=== PATIENT | male | born 1935 | race Caucasian/White ===

== ENCOUNTER 2020-02-07 02:15 | Inpatient (IN) | payer MEDICARE ==
[~2020-02-07] VITALS: Ht 182.8 cm; Wt 79.8 kg
[2020-02-07] VITALS (13 sets, daily range): BP systolic 120–163; BP diastolic 51–72
[2020-02-07] MEDS ORDERED: LIDOCAINE UROJET 2% GEL 10 ML PKG ONE (02:24)
--- NOTE | 2020-02-07 02:27 | ED Abdominal Pain ---
General Chief Complaint: General Problems/Pain Stated Complaint: KIDNEY PAIN Source of Information: Patient, EMS, Old Records Exam Limitations: No Limitations History of Present Illness Date Seen by Provider: Feb 07, 2020 Time Seen by Provider: 02:12 Initial Comments The patient presents to ER by EMS from [facility] with chief complaint that he is having severe pain in his bilateral flanks as well as his suprapubic region and has not been able to urinate for the past several hours. Passing large blood clots through his urine. Apparently he was admitted yesterday for urinary symptoms and is being seen by a urologist and had a scope done recently from [place], [place]. He went home AMA as he said he was in a lot of pain. Patient says he is having a lot of pain now rates it as severe and denies any nausea but has some mild shortness of breath. No chest pain area no history of asthma or COPD. He quit smoking over 50 years ago. He is not coughing anything up. No rash fevers or chills. Patient had a TURP but she made 3 months ago and presented yesterday for shortness of breath. He had a pleural effusion on the right side on his chest x- ray. He was given Lasix because his BNP was 3000 range. He was put on antibioti cs, Zosyn. He says when he was discharged home from [facility] to the residential he was put on oxygen. He was diagnosed with severe sepsis and had an elevated creatinine of 2.5 however we do not have a baseline for him. He did not have an elevated lactate or fever. Lasix was administered. Patient did not complete an echocardiogram. Troponins did not get trended because of the patient going AMA. Allergies and Home Medications Allergies Uncoded Allergies: pneumonia vaccine (Adverse Reaction, Unknown, 02/06/20) Patient Home Medication List Home Medication List Reviewed: Yes Review of Systems Review of Systems Constitutional: No chills, No diaphoresis EENTM: No Blurred Vision, No Double Vision Respiratory: Denies Cough, Denies Shortness of Air Cardiovascular: Denies Chest Pain, Denies Edema Gastrointestinal: See HPI; Denies Abdomen Distended; Abdominal Pain Genitourinary: Denies Burning; Flank Pain, Hematuria, Pain Musculoskeletal: No back pain, No joint pain Skin: No pruritus, No rash Psychiatric/Neurological: Denies Anxiety, Denies Depressed All Other Systems Reviewed Negative Unless Noted: Yes Past Asedwju-Angfhf-Bbebio Hx Patient Social History Recreational Drug Use: No Smoking Status: Former Smoker Recent Foreign Travel: No Contact w/Someone Who Travel: No Recent Hopitalizations: Yes (PROSTATE SX) Immunizations Up To Date Date of Influenza Vaccine: Aug 21, 2019 Seasonal Allergies Seasonal Allergies: No Past Medical History Surgeries: Yes (HERNIA) Prostatectomy Respiratory: Yes (HOME O2 UNTIL RECENTLY) Cardiac: Yes High Cholesterol, Hypertension Neurological: No Genitourinary: No Gastrointestinal: No Musculoskeletal: No Endocrine: Yes Diabetes, Non-Insulin dep HEENT: No Cancer: No Psychosocial: No Integumentary: No Blood Disorders: No Adverse Reaction/Blood Tranf: No Physical Exam Vital Signs Vital Signs - First Documented 02/07/20 02:15 Temp 36.9 Pulse 76 Resp 20 B/P (MAP) 148/59 (88) Pulse Ox 100 O2 Delivery Room Air Capillary Refill : Height/Weight/BMI Height: '" Weight: lbs. oz. kg; 26.48 BMI Method: General Appearance: WD/WN, mild distress HEENT: PERRL/EOMI, normal ENT inspection Neck: full range of motion, supple Respiratory: lungs clear, normal breath sounds, no respiratory distress, no accessory muscle use Cardiovascular: normal peripheral pulses, regular rate, rhythm, no edema Peripheral Pulses: 2+ Radial Pulses (R), 2+ Radial Pulses (L) Gastrointestinal: normal bowel sounds, no organomegaly, guarding (suprapubic), tenderness (suprapubic fullness and tenderness to light palpation.) Extremities: normal range of motion, normal inspection, normal capillary refill Back: CVA tenderness (R), CVA tenderness (L) Neurologic/Psychiatric: alert, normal mood/affect, oriented x 3 Progress/Results/Core Measures Results/Orders Lab Results Laboratory Tests Test 02/07/20 02:36 02/07/20 02:54 Range/Units White Blood Count 19.6 H 4.3-11.0 10^3/uL Red Blood Count 3.51 L 4.35-5.85 10^6/uL Hemoglobin 9.0 L 13.3-17.7 G/DL Hematocrit 29 L 40-54 % Mean Corpuscular Volume 84 80-99 FL Mean Corpuscular Hemoglobin 26 25-34 PG Mean Corpuscular Hemoglobin Concent 31 L 32-36 G/DL Red Cell Distribution Width 14.7 H 10.0-14.5 % Platelet Count 445 H 130-400 10^3/uL Mean Platelet Volume 11.1 H 7.4-10.4 FL Neutrophils (%) (Auto) 76 H 42-75 % Lymphocytes (%) (Auto) 13 12-44 % Monocytes (%) (Auto) 6 0-12 % Eosinophils (%) (Auto) 5 0-10 % Basophils (%) (Auto) 0 0-10 % Neutrophils # (Auto) 14.9 H 1.8-7.8 X 10^3 Lymphocytes # (Auto) 2.6 1.0-4.0 X 10^3 Monocytes # (Auto) 1.2 H 0.0-1.0 X 10^3 Eosinophils # (Auto) 0.9 H 0.0-0.3 10^3/uL Basophils # (Auto) 0.1 0.0-0.1 10^3/uL Neutrophils % (Manual) 78 % Lymphocytes % (Manual) 9 % Monocytes % (Manual) 4 % Eosinophils % (Manual) 8 % Band Neutrophils 1 % Blood Morphology Comment NORMAL Sodium Level 140 135-145 MMOL/L Potassium Level 5.0 3.6-5.0 MMOL/L Chloride Level 105 98-107 MMOL/L Carbon Dioxide Level 18 L 21-32 MMOL/L Anion Gap 17 H 5-14 MMOL/L Blood Urea Nitrogen 54 H 7-18 MG/DL Creatinine 2.52 H 0.60-1.30 MG/DL Estimat Glomerular Filtration Rate 25 BUN/Creatinine Ratio 21 Glucose Level 137 H 70-105 MG/DL Calcium Level 8.6 8.5-10.1 MG/DL Corrected Calcium 9.1 8.5-10.1 MG/DL Total Bilirubin 0.4 0.1-1.0 MG/DL Aspartate Amino Transf (AST/SGOT) 16 5-34 U/L Alanine Aminotransferase (ALT/SGPT) 19 0-55 U/L Alkaline Phosphatase 145 H 40-136 U/L Troponin I 0.091 H <0.028 NG/ML B-Type Natriuretic Peptide 3887.5 H <100.0 PG/ML Total Protein 6.5 6.4-8.2 GM/DL Albumin 3.4 3.2-4.5 GM/DL Lipase 44 8-78 U/L Urine Color RED H Urine Clarity CLOUDY Urine pH 7.5 5-9 Urine Specific [place] 1.020 1.016-1.022 Urine Protein 3+ H NEGATIVE Urine Glucose (UA) NEGATIVE NEGATIVE Urine Ketones TRACE H NEGATIVE Urine Nitrite POSITIVE H NEGATIVE Urine Bilirubin NEGATIVE NEGATIVE Urine Urobilinogen 2.0 < = 1.0 MG/DL Urine Leukocyte Esterase 2+ H NEGATIVE Urine RBC (Auto) 3+ H NEGATIVE Urine RBC TNTC H /HPF Urine WBC 2-5 /HPF Urine Squamous Epithelial Cells NONE /HPF Urine Crystals NONE /LPF Urine Bacteria TRACE /HPF Urine Casts NONE /LPF Urine Mucus SMALL H /LPF Urine Culture Indicated YES My Orders Orders - AFRICA GUERRERO Ekg Tracing (02/07/20 02:21) Continuous Ekg Monitoring (02/07/20 02:21) Troponin I (02/07/20 02:21) Cbc With Automated Diff (02/07/20 02:21) Comprehensive Metabolic Panel (02/07/20 02:21) Ua Culture If Indicated (02/07/20 02:21) Catheter(Urinary) Insert & Ass 03,15 (02/07/20 02:21) Lipase (02/07/20 02:21) Chest 1 View, Ap/Pa Only (02/07/20 02:21) Fentanyl Injection (Sublimaze Injection (02/07/20 02:30) Ed Iv/Invasive Line Start (02/07/20 02:22) Fentanyl Injection (Sublimaze Injection (02/07/20 02:30) Lidocaine 2% (Urojet) (Xylocaine Urojet) (02/07/20 02:24) Fentanyl Injection (Sublimaze Injection (02/07/20 02:45) Lidocaine 2% (Urojet) (Xylocaine Urojet) (02/07/20 02:45) BNP (02/07/20 02:34) Ceftriaxone For Iv Use (Rocephin For I (02/07/20 02:45) Manual Differential (02/07/20 02:36) Urine Culture (02/07/20 02:54) Medications Given in ED Current Medications Medications Dose Ordered Sig/Gera Route Start Time Stop Time Status Last Admin Dose Admin Ceftriaxone Sodium 1000 mg/ Sterile Water 10 ml @ 200 mls/hr ONCE ONCE IV 02/07/20 02:45 02/07/20 02:47 DC 02/07/20 02:48 200 MLS/HR Fentanyl Citrate 100 mcg ONCE ONCE IVP 02/07/20 02:45 02/07/20 02:46 DC 02/07/20 02:34 100 MCG Lidocaine HCl 10 ml ONCE ONCE TOP 02/07/20 02:45 02/07/20 02:46 DC 02/07/20 02:34 10 ML Vital Signs/I&O 02/07/20 02:15 Temp 36.9 Pulse 76 Resp 20 B/P (MAP) 148/59 (88) Pulse Ox 100 O2 Delivery Room Air Progress Progress Note #1: Time: 02:30 Progress Note Plan to put a Palencia catheter in him to relieve the pressure. 100 g of fentanyl as he is having significant pain just with attempting to urinate. Urojet. Since having some shortness of breath we'll get an EKG, troponin, BNP and chest x-ray and labs. Patient was not initiated on prior admission on blood thinners likely because of his hematuria. Elevated troponin could be related to his kidney dysfunction. Apparently the hospital is now on diversion so we will have to find somewhere [facility] for him to be admitted. The patient's oxygen sats were about 88% on arrival so liters by nasal cannula was initiated which kept him in the mid 90s. Progress Note #2: Time: 02:55 Progress Note 100 g of fentanyl was sufficient to control his pain. We did not end up needing the ketamine. The patient is a 15 [place] Pal[place] in and says he feels 100% better now that the urine is draining. He has blood red urine. Initial ECG Impression Date: Feb 07, 2020 Initial ECG Impression Time: 02:54 Initial ECG Rate: 71 Initial ECG Rhythm: Normal Sinus Initial ECG Intervals: QT (483) Initial ECG Impression: Normal, Nonspecific Changes Comment Sinus rhythm with prolonged QT interval and without evidence of clinically relevant ST elevation or depression. Diagnostic Imaging Diagonstic Imaging: Xray Plain Films/CT/US/NM/MRI: chest Comments Bilateral effusions, mild. Perhaps some right sided basilar pneumonitis versus atelectasis and effusion. Reviewed: Reviewed by Me Departure Communication (Admissions) Time/Spoke to Admitting Phy: 03:43 Dr. Lawson agrees to admit the patient to stepdown. Time/Spoke to Consulting Phy: 03:56 Discussed the case with Dr. Gillespie and he agrees with aspirin, metoprolol XL 50 now and daily. Impression Primary Impression: Urinary tract infection Qualified Codes: N30.01 - Acute cystitis with hematuria Additional Impressions: Acute urinary retention Elevated troponin I level Renal failure Qualified Codes: N19 - Unspecified kidney failure Delirium due to another medical condition Heart failure Qualified Codes: I50.9 - Heart failure, unspecified Hypoxia Disposition: ADMITTED INPATIENT Condition: Stable Admissions Decision to Admit Reason: Admit from ER (General) Decision to Admit/Date: Feb 07, 2020 Time/Decision to Admit Time: 03:30 Departure-Patient Inst. Referrals: NO,LOCAL PHYSICIAN (PCP/Family) Primary Care Physician AFRICA GUERRERO Feb 07, 2020 02:27
[2020-02-07] MEDS ORDERED: fentaNYL INJECTION 100 MCG/2 ML AMP IVP ONE ×3 (02:30→02:45)
[2020-02-07] MEDS ORDERED: KETAMINE/NaCl 50 MG/5 ML SYRINGE (ED ONLY) IV ONE (02:45)
[2020-02-07] MEDS ORDERED: LIDOCAINE UROJET 2% GEL 10 ML PKG TOP ONE (02:45)
[2020-02-07] MEDS ORDERED: cefTRIAXone FOR IV USE 1,000 MG in WATER (STERILE) FOR INJECTION 10 ML IV ONE (02:45)
[2020-02-07 02:46] LABS: BASOPHILS # (AUTO) 0.1 10^3/uL (0.0-0.1); BASOPHILS % (AUTO) 0 % (0-10); EOSINOPHILS # (AUTO) 0.9 10^3/uL (0.0-0.3); EOSINOPHILS % (AUTO) 5 % (0-10); HEMATOCRIT 29 % (40-54); LYMPHOCYTES # (AUTO) 2.6 X 10^3 (1.0-4.0); LYMPHOCYTES % (AUTO) 13 % (12-44); MEAN CORPUSCULAR HEMOGLOBIN 26 PG (25-34); MEAN CORPUSCULAR HGB CONC 31 G/DL (32-36); MEAN CORPUSCULAR VOLUME 84 FL (80-99); MEAN PLATELET VOLUME 11.1 FL (7.4-10.4); MONOCYTES # (AUTO) 1.2 X 10^3 (0.0-1.0); MONOCYTES % (AUTO) 6 % (0-12); NEUTROPHILS # (AUTO) 14.9 X 10^3 (1.8-7.8); NEUTROPHILS % (AUTO) 76 % (42-75); PLATELET COUNT 445 10^3/uL (130-400); RED CELL DISTRIBUTION WIDTH 14.7 % (10.0-14.5); WHITE BLOOD COUNT 19.6 10^3/uL (4.3-11.0)
[2020-02-07 03:01] LABS: BILIRUBIN,URINE NEGATIVE (NEGATIVE); CLARITY,URINE CLOUDY; COLOR,URINE RED; GLUCOSE, URINE (UA) NEGATIVE (NEGATIVE); KETONES,URINE TRACE (NEGATIVE); LEUKOCYTE ESTERASE ,URINE 2+ (NEGATIVE); NITRITE,URINE POSITIVE (NEGATIVE); PH,URINE 7.5 (5-9); PROTEIN,URINE 3+ (NEGATIVE)
[2020-02-07 03:05] LABS: BAND NEUTROPHILS 1 %; EOSINOPHILS % (MANUAL) 8 %; LYMPHOCYTES % (MANUAL) 9 %; MONOCYTES % (MANUAL) 4 %; NEUTROPHILS % (MANUAL) 78 %; RBC MORPH NORMAL
[2020-02-07 03:09] LABS: ALBUMIN 3.4 GM/DL (3.2-4.5); BILIRUBIN,TOTAL 0.4 MG/DL (0.1-1.0); CALCIUM 8.6 MG/DL (8.5-10.1); CREATININE SERUM 2.52 MG/DL (0.60-1.30); TOTAL PROTEIN 6.5 GM/DL (6.4-8.2)
[2020-02-07 03:11] LABS: RBC,URINE TNTC /HPF
[2020-02-07 03:12] LABS: BACTERIA,URINE TRACE /HPF
[2020-02-07] MEDS ORDERED: RT-ALBUTEROL/IPRATROPIUM 3 ML (DUONEB) VIAL INH SCH (05:30)
--- NOTE | 2020-02-07 06:06 | Diagnostic Imaging Report ---
INDICATION: Lower abdominal pain, fevers, chills, cough. COMPARISON: 02/06/2020. FINDINGS: Single view of the chest demonstrates persistent slightly decreased effusion, atelectasis and infiltrate in the right base. Minimal atelectasis seen in the left base. The heart is prominent without pulmonary edema. There is no pneumothorax. Osseous structures are normal. IMPRESSION: Improving aeration right lung base. Dictated by: Dictated on workstation # [id number]
[2020-02-07] MEDS ORDERED: diphenhydrAMINE 25 MG TAB (BENADRYL) PO ONE (06:26)
[2020-02-07] MEDS: diphenhydrAMINE 25 MG TAB (BENADRYL) PO PRN (06:32)
[2020-02-07] MEDS ORDERED: FUROSEMIDE 40 MG/4 ML INJ (LASIX) IV SCH (07:00)
[2020-02-07 07:38] LABS: AMPHETAMINE SCREEN, URINE NEGATIVE (NEGATIVE); BARBITURATE SCREEN URINE NEGATIVE (NEGATIVE); BENZODIAZEPINES SCREEN URINE NEGATIVE (NEGATIVE); CANNABINOID SCREEN, URINE NEGATIVE (NEGATIVE); COCAINE SCREEN URINE NEGATIVE (NEGATIVE); METHADONE STAT NEGATIVE (NEGATIVE); METHAMPHETAMINE SCREEN URINE S NEGATIVE (NEGATIVE); OPIATE SCREEN URINE NEGATIVE (NEGATIVE); OXYCODONE STAT NEGATIVE (NEGATIVE); PROPOXYPHENE STAT NEGATIVE (NEGATIVE); TRICYCLIC ANTIDEPRESSANTS SCRE NEGATIVE (NEGATIVE)
--- NOTE | 2020-02-07 08:58 | Consultation-Cardiology ---
HPI-Cardiology Cardiology Consultation: Date of Consultation 02/07/20 Time Seen by a Provider: 08:10 Date of Admission Attending Physician Sammi Lawson MD Admitting Physician No,Local Physician Consulting Physician JODY LUNA MD, MA, FACP, FACC, FSCAI, CCDS HPI: Chief Complaint: Reason for Cardiology consultation: Elevated troponin HPI 84 yo man who has presented to ER with inability to urinate and penile and suprapubic pain on 02/05/20, left AMA on 02/06/20, came back the same night with the same problem (relieved with bladder cath). No suprapubic discomfort now. Noted to have elevated troponin for which we have been consulted. He denies cp or palp or syncope or exertional shortness of breath. Denies focal weakness of seizures. Denies leg swelling. Review of Systems-Cardiology Review of Systems Constitutional: malaise, tiredness; No weight loss, No weight gain Eyes: No vision change Ears/Nose/Throat: No ear discharge, No nasal drainage, No recent hearing loss Respiratory: As described under HPI Cardiovascular: As described under HPI Gastrointestinal: No diarrhea, No nausea, No vomiting Genitourinary: As described under HPI Musculoskeletal: back pain (chronic) Skin: No rash, No ulcerations Psychiatric/Neurological: No seizure, No focal weakness, No syncope Hematologic: No bleeding abnormalities All Other Systems Reviewed Negative Unless Noted: Yes OAZ-Ggonkf-Brhpld Hx Patient Social History Alcohol Use: Denies Use Recreational Drug Use: No Smoking Status: Former Smoker Recent Foreign Travel: No Recent Infectious Disease Expo: No Hospitalization with Isolation: Denies Immunizations Up To Date Date of Influenza Vaccine: Aug 21, 2019 Past Medical History PMH As described under Assessment. Family Medical History Family Medical History: Does not report fam h/o early CAD or SCD Family History: Patient reports no known family medical history. Allergies and Home Medications Allergies Uncoded Allergies: pneumonia vaccine (Adverse Reaction, Unknown, 02/06/20) Patient Home Medication List Home Medication List Reviewed: Yes Physical Exam-Cardiology Physical Exam Vital Signs/I&O 02/07/20 02/07/20 02/07/20 02/07/20 02:15 04:50 04:50 04:54 Temp 36.9 36.4 Pulse 76 70 79 Resp 20 21 B/P (MAP) 148/59 (88) 154/68 (96) Pulse Ox 100 O2 Delivery Room Air Nasal Cannula Nasal Cannula O2 Flow Rate 1.00 2.00 02/07/20 02/07/20 02/07/20 02/07/20 05:00 05:04 05:13 05:15 Temp 36.9 Pulse 70 76 65 Resp 23 17 B/P (MAP) 163/60 (94) 142/66 (91) Pulse Ox 100 97 O2 Delivery Nasal Cannula Nasal Cannula Nasal Cannula O2 Flow Rate 2.00 1.00 1.00 02/07/20 02/07/20 02/07/20 02/07/20 05:30 05:45 06:00 06:41 Temp 36.9 Pulse 74 65 70 70 Resp 31 15 18 18 B/P (MAP) 152/72 (98) 159/62 (94) 148/63 (91) 129/85 (91) Pulse Ox 98 98 98 98 O2 Delivery Nasal Cannula Nasal Cannula Nasal Cannula Nasal Cannula O2 Flow Rate 1.00 1.00 1.00 1.00 02/07/20 02/07/20 08:00 08:00 Temp 36.4 O2 Delivery Nasal Cannula O2 Flow Rate 1.00 Capillary Refill : Less Than 3 Seconds Constitutional: AAO x 3, well-developed, well-nourished HEENT: EOMI, hard of hearing; No xanthelasmas are seen Neck: carotid pulses are 2 + bilaterally, with good upstrokes Respiratory: No accessory muscle use; other (fair to good bilat air entry, diminished at the bases) Cardiovascular: regular rate-rhythm, systolic murmur (soft [place] at card base) Gastrointestinal: No tender; soft; No guarding, No rebound; audible bowel sounds Extremities: No clubbing, No cyanosis, No significant edema Neurologic/Psychiatric: oriented x 3, other (moves all limbs equally) Skin: No rash on exposed areas, No ulcerations on exposed areas Data Review Labs Laboratory Tests 02/07/20 02:36: White Blood Count 19.6H, Red Blood Count 3.51L, Hemoglobin 9.0L, Hematocrit 29L, Mean Corpuscular Volume 84, Mean Corpuscular Hemoglobin 26, Mean Corpuscular Hemoglobin Concent 31L, Red Cell Distribution Width 14.7H, Platelet Count 445H, Mean Platelet Volume 11.1H, Neutrophils (%) (Auto) 76H, Lymphocytes (%) (Auto) 13, Monocytes (%) (Auto) 6, Eosinophils (%) (Auto) 5, Basophils (%) (Auto) 0, Neutrophils # (Auto) 14.9H, Lymphocytes # (Auto) 2.6, Monocytes # (Auto) 1.2H, Eosinophils # (Auto) 0.9H, Basophils # (Auto) 0.1, Neutrophils % (Manual) 78, Lymphocytes % (Manual) 9, Monocytes % (Manual) 4, Eosinophils % (Manual) 8, Band Neutrophils 1, Blood Morphology Comment NORMAL, Sodium Level 140, Potassium Level 5.0, Chloride Level 105, Carbon Dioxide Level 18L, Anion Gap 17H, Blood Urea Nitrogen 54H, Creatinine 2.52H, Estimat Glomerular Filtration Rate 25, BUN/Creatinine Ratio 21, Glucose Level 137H, Calcium Level 8.6, Corrected Calcium 9.1, Total Bilirubin 0.4, Aspartate Amino Transf (AST/SGOT) 16, Alanine Aminotransferase (ALT/SGPT) 19, Alkaline Phosphatase 145H, Troponin I 0.091H, B- Type Natriuretic Peptide 3887.5H, Total Protein 6.5, Albumin 3.4, Lipase 44 02/07/20 02:54: Urine Color REDH, Urine Clarity CLOUDY, Urine pH 7.5, Urine Specific Cable 1.020, Urine Protein 3+H, Urine Glucose (UA) NEGATIVE, Urine Ketones TRACEH, Urine Nitrite POSITIVEH, Urine Bilirubin NEGATIVE, Urine Urobilinogen 2.0, Urine Leukocyte Esterase 2+H, Urine RBC (Auto) 3+H, Urine RBC TNTCH, Urine WBC 2-5, Urine Squamous Epithelial Cells NONE, Urine Crystals NONE, Urine Bacteria TRACE, Urine Casts NONE, Urine Mucus SMALLH, Urine Culture Indicated YES, Urine Opiates Screen NEGATIVE, Urine Oxycodone Screen NEGATIVE, Urine Methadone Screen NEGATIVE, Urine Propoxyphene Screen NEGATIVE, Urine Barbiturates Screen NEGATIVE, Ur Tricyclic Antidepressants Screen NEGATIVE, Urine Phencyclidine Screen NEGATIVE, Urine Amphetamines Screen NEGATIVE, Urine Methamphetamines Screen NEGATIVE, Urine Benzodiazepines Screen NEGATIVE, Urine Cocaine Screen NEGATIVE, Urine Cannabinoids Screen NEGATIVE 02/07/20 06:25: Lactic Acid Level 0.90 02/07/20 08:38: Laboratory Tests 02/07/20 02:36 A/P-Cardiology Assessment/Admission Diagnosis Renal failure, probably acute. (Chronicity difficult to determine because no prior records of renal function at this hosp) Dysuria, then anuria, now relieved (after bladder cath) UTI Hematuria. H/o recent TURP at [facility] NSTEMI, clinically stable DM II Hypertension Hyperlipidemia Discussion and Recomendations * Not suitable for card cath, given conditions noted above. He himself also wishes to be managed conservatively for suspected CAD * Echo * Treat with bb, ASA, statin * Management of (multiple) other issue is with the Hospitalist Svce * Discussed his case with Dr Oliver this am * Dr Saleem covering card svce. Discussed with him Clinical Quality Measures DVT/VTE Risk/Contraindication: Risk Factor Score Per Nursin RFS Level Per Nursing on Admit: 4+=Very High JODY LUNA MD FACP FAC CCDS Feb 07, 2020 08:58
[2020-02-07] MEDS: ASPIRIN 81 MG CHEW (CHILDREN'S ASA) PO SCH (09:30)
[2020-02-07] MEDS: meTOproloL SUCCINATE 50 MG (TOPROL XL) TAB PO SCH (09:30)
--- NOTE | 2020-02-07 12:07 | NUR ---
REPORT GIVEN TO APRYL PEDERSEN. PT BEING TRANSFERRED TO ROOM 406 WITH ALL BELONGINGS
--- NOTE | 2020-02-07 12:23 | NUR ---
PATIENT TO ROOM VIA BED. PATIENT DENIES ANY NEEDS AT THIS TIME. PATIENT IS SITTING UP IN BED EATING LUNCH. WILL CONTINUE TO MONITOR.
--- NOTE | 2020-02-07 13:28 | NUR ---
CM/SS visited with the patient for discharge planning. The patient was in bed and sleeping but woke easily when this ss walked into the room. CM/SS had a short visit with the patient due to him being so sleepy. The patient stated that he was from a usp in [place] called [facility]. He left the usp and felt that it did not help much at all. He went home to live with his son Dawson. CM/SS asked if the patient had any additional caregivers in the home and he reported that he doesn't have anyone else helping except his son. CM/SS will visit the patient tomorrow to finish assessing for needs.
[2020-02-07] MEDS ORDERED: ANTACID SUSP 30 ML UDC (MYLANTA) PO PRN (14:15)
[2020-02-07] MEDS ORDERED: ONDANSETRON 4 MG/2 ML (SDV) Z0FRAN IV PRN (14:15)
[2020-02-07] MEDS ORDERED: BENZONATATE 100 MG (TESSALON) CAPSULE PO PRN (14:15)
[2020-02-07] MEDS ORDERED: MELATONIN 3 MG TABLET PO PRN (14:15)
--- NOTE | 2020-02-07 14:16 | History & Physical-Hospitalist ---
History of Present Illness HPI/Chief Complaint 84-year-old male with past medical history of TURP 3 months ago presented to the emergency room due to inability to urinate. He was actually admitted yesterday due to severe sepsis from UTI but left AMA prior to being seen. He returned this evening due to worsening issues with urination and hematuria when he was able to urinate. A catheter was placed in the emergency room. He was found to have an elevated creatinine and he is unsure if this is normal for him. BNP and troponin were also elevated. He has no new complaints at this time. Source: patient Date Seen 02/07/20 Time Seen by a Provider: 09:30 Attending Physician Sammi Lawson MD PCP No,Local Physician Referring Physician Date of Admission Feb 07, 2020 at 04:00 Home Medications & Allergies Home Medications Reviewed patient Home Medication Reconciliation performed by pharmacy medication reconciliations poured concrete wall technician and/or nursing. Patients Allergies have been reviewed. Allergies Allergies Uncoded Allergies pneumonia vaccine ( Adverse Reaction, Unknown, 02/06/20) Past Vgrmdzb-Pxyakr-Zponbu Hx Past Med/Social Hx: Reviewed Nursing Past Med/Soc Hx Patient Social History Employed/Student: retired Alcohol Use: Denies Use Recreational Drug Use: No Smoking Status: Former Smoker Recent Foreign Travel: No Contact w/other who traveled: No Recent Hopitalizations: Yes (PROSTATE SX) Recent Infectious Disease Expo: No Immunizations Up To Date Date of Influenza Vaccine: Aug 21, 2019 Seasonal Allergies Seasonal Allergies: No Past Medical History Surgeries: Prostatectomy Cardiac: Coronary Artery Disease, High Cholesterol, Hypertension Genitourinary: Benign Prostatic Hyperpl, Prostate Problems Endocrine: Diabetes, Non-Insulin dep History of Blood Disorders: No Adverse Reaction to Blood Vance: No Family History Reviewed Nursing Family Hx Patient reports no known family medical history. Review of Systems Constitutional: No chills, No fever EENTM: no symptoms reported Respiratory: no symptoms reported Cardiovascular: No chest pain, No edema Gastrointestinal: No abdominal pain, No constipation, No diarrhea, No nausea, No vomiting Genitourinary: decreased output, hematuria, hesitancy Musculoskeletal: no symptoms reported Skin: no symptoms reported Psychiatric/Neurological: No Symptoms Reported Physical Exam Physical Exam Vital Signs Vital Signs - First Documented 02/07/20 02:15 Temp 36.9 Pulse 76 Resp 20 B/P (MAP) 148/59 (88) Pulse Ox 100 O2 Delivery Room Air Capillary Refill : Less Than 3 Seconds Height, Weight, BMI Height: '" Weight: lbs. oz. kg; 24.92 BMI Method: General Appearance: No Apparent Distress, Chronically ill, Thin HEENT: Moist Mucous Membranes; No Scleral Icterus (L), No Scleral Icterus (R) Neck: Normal Inspection, Supple Respiratory: Lungs Clear, No Accessory Muscle Use, No Respiratory Distress Cardiovascular: Regular Rate, Rhythm, No Murmur Gastrointestinal: Normal Bowel Sounds, Non Tender, Soft Genital/Rectal: Other (mcdermott catheter in place- bright red blood with clots noted) Extremity: No Calf Tenderness, No Pedal Edema Neurologic/Psychiatric: Alert, Oriented x3 Skin: Normal Color, Warm/Dry Results Results/Procedures Labs Laboratory Tests 02/07/20 02:36 Patient resulted labs reviewed. Imaging Date of Exam:02/07/20 CHEST 1 VIEW, AP/PA ONLY INDICATION: Lower abdominal pain, fevers, chills, cough. COMPARISON: 02/06/2020. FINDINGS: Single view of the chest demonstrates persistent slightly decreased effusion, atelectasis and infiltrate in the right base. Minimal atelectasis seen in the left base. The heart is prominent without pulmonary edema. There is no pneumothorax. Osseous structures are normal. IMPRESSION: Improving aeration right lung base. Assessment/Plan Admission Diagnosis UTI Admission Status: Observation Assessment and Plan UTI Urinary Retention Hematuria Cather in place Continue Rocephin, await culture from previous visit Does not meet sepsis criteria at this time but did during admission yesterday before left AMA Urology Consulted, appreciate recs Elevated Troponin CAD Elevated BNP Cardiology consulted, appreciate works Echo ordered medical management per Dr Gillespie due to atif hematuria\\ Metoprolol JUANCARLOS Creatinine 2.5 Unsure of baseline but anticipate acute issue due to retention Trend DVT ppx: Unable to wear SCDs due to pain and Lovenox contraindicated due to hematuria Diagnosis/Problems Diagnosis/Problems (1) Elevated troponin I level Status: Acute (2) Acute urinary retention Status: Acute (3) Renal failure Status: Acute Qualifiers: Renal failure chronicity: unspecified chronicity Qualified Codes: N19 - Unspecified kidney failure (4) Urinary tract infection Status: Acute Qualifiers: Urinary tract infection type: acute cystitis Hematuria presence: with hematuria Qualified Codes: N30.01 - Acute cystitis with hematuria Clinical Quality Measures DVT/VTE Risk/Contraindication: Risk Factor Score Per Nursin RFS Level Per Nursing on Admit: 4+=Very High KIKE KAN MD Feb 07, 2020 14:16
--- NOTE | 2020-02-07 14:29 | Physician Query Clarification ---
PQ-CHF Specificity Admission Date: Feb 07, 2020 at 04:00 Discharge Date: The medical record reflects the following clinical scenario: History/Risk Factors: CHF listed by ED physician Dr. Funmi Cota NSTEMI Clinical Findings: BNP 3887.5, Troponin 0.091 Treatment:IV Lasix Question: Can you further specify the acuity &/or type of CHF per the clinical indicators above? Please document a response in the Progress Notes or Discharge Summary. 1. Acuity: Acute, Chronic or Acute on Chronic 2. Type: Systolic, Diastolic or Systolic & Diastolic 3. Unspecified: CHF cannot be further specified regarding type or acuity 4. Other, with explanation of clinical findings 5. Clinically undetermined, no explanation for clinical findings PHYSICIAN RESPONSE Acuity: Acute on Chronic Type: Systolic & Diastolic Please remember a lack of response to the above will prompt a phone page by CDI/Coding staff. In responding to this query, please exercise your independent professional judgment. The purpose of this communication is to more accurately reflect the complexity of your patients condition. The fact that a question is asked does not imply that any particular answer is desired or expected. Thank you for your timely response to this clarification. Requestors name: Diana Gonzalez [facility] Phone # ext [phone] or [phone] THIS PHYSICIAN QUERY FORM IS A PERMANENT PART OF THE MEDICAL RECORD DIANA GONZALEZ Feb 07, 2020 14:29 JODY LUNA MD [facility] Feb 07, 2020 17:57
--- NOTE | 2020-02-07 15:28 | NUR ---
WENT AND SPOKE WITH THE PT WHEN HE WAS IN ICU AND WAS UNSURE OF HIS MEDS. [facility] BUT [facility] DID NOT THINK THIS IS CURRENT AND LET ME KNOW HE WAS RECENTLY AT THE [facility] IN [place]. I SPOKE WITH THEM AND ASKED FOR THE MAR TO BE FAXED- THEY ARE FAXING BUT DID LET ME KNOW HE LEFT AMA RECENTLY AND IS NOT SURE WHAT HE IS TAKING NOW. WHEN I GET THE MAR FROM THE NURSING FACILITY I WILL UPDATE MED REC AND NOTES
--- NOTE | 2020-02-07 15:39 | Physical Therapy Evaluation ---
PT Evaluation-General Medical Diagnosis Admission Date Feb 07, 2020 at 04:00 Medical Diagnosis: Prostatectomy, cardiac disorders Onset Date: Feb 05, 2020 Therapy Diagnosis Therapy Diagnosis: Impaired mobility Precautions Precautions/Isolations: Fall Prevention, Standard Precautions Weight Bear Status Right Lower Extremity: Right Weight Bearing/Tolerated Left Lower Extremity: Left Weight Bearing/Tolerated Referral Physician: Dr. Lawson Reason for Referral: Evaluation/Treatment Medical History Additional Medical History Surgeries: Yes (HERNIA) Prostatectomy Respiratory: Yes (HOME O2 UNTIL RECENTLY) Cardiac: Yes High Cholesterol, Hypertension Neurological: No Genitourinary: No Gastrointestinal: No Musculoskeletal: No Endocrine: Yes Diabetes, Non-Insulin dep HEENT: No Cancer: No Psychosocial: No Integumentary: No Blood Disorders: No Adverse Reaction/Blood Tranf: No Social History Home: trailer Current Living Status: Other Family (son) Entry Into Home: Stairs With Railing (4) PT Steps Into Home: 4 (rail B) PT Steps Inside Home: 0 Prior Prior Level of Function SCALE: Activities may be completed with or without assistive devices. 6-Nyrigqytfu-tdigjll completes the activity by him/herself with no assistance from a helper. 5-Set-up or Clean-up Assistance-helper sets up or cleans up; patient completes activity. [place] assists only prior to or following the activity. 4-Supervision or Touching Assistance-helper provides verbal cues and/or touching/steadying and/or contact guard assistance as patient completes activity. Assistance may be provided throughout the activity or intermittently. 3-Partial/Moderate Assistance-helper does LESS THAN HALF the effort. [place] lifts, holds or supports trunk or limbs, but provides less than half the effort. 2-Substantial/Maximal Assistance-helper does MORE THAN HALF the effort. [place] lifts or holds trunk or limbs and provides more than half the effort. 0-Bqyxysffj-cmblur does ALL the effort. Patient does none of the effort to complete the activity. Or, the assistance of 2 or more helpers is required for the patient to complete the activity. If activity was not attempted, code reason: 7-Patient Refused. 9-Not Applicable-not attempted and the patient did not perform the activity before the current illness, exacerbation or injury. 10-Not Attempted due to Environmental Limitations-(lack of equipment, weather restraints, etc.). 88-Not Attempted due to Medical Conditions or Safety Concerns. Bed Mobility: 4 (CGA) Transfers (B,C,W/C): 4 (CGA) Gait: 4 (CGA) Indoor Mobility (Ambulation): Needed Some Help Stairs: Needed Some Help Prior Devices Use: Walker (RW) Patient states "he does not like the RW" and in home ambulate from grabbing onto furniture. PT Evaluation-Current Subjective Pain 5/10 in b quads. Patient reports itching in B LE that exercising caused him to be weak and bed ridden. Pt/Family Goals Return to son's trailer house. Objective Patient Orientation: Person, Confused, Place, Eyes Open, Situation Attachments: Oxygen (1 Lt), Palencia Catheter SRD branden ROM/Strength Strength Lower Extremities All MMT were -2/5. Patient unable to complete AROM of muscle groups or hold against any outside force. Patient also had a hard time understanding instructions and they had to be repeated slowly 2x. Integumentary/Posture Bowel Incontinence: No Bladder Incontinence: Palencia Cath Neuromuscular (Tone, Coordination, Reflexes) Impaired sensation in B LE increasing with distal areas. Sensory Vision: Functional Hearing: Functional Hand Dominance: Right Sensation Right Lower Extremit: Impaired Sensation Left Lower Extremity: Impaired Transfers Roll Left to Right (QC): 4 Sit to Lying (QC): 4 (SBA) Lying to Sitting/Side of Bed(Q: 3 (Less than 50% help with Lifting LE's) Sit to Stand (QC): 4 (CGA) Chair/Bwj-yz-Cacls Xfer(QC): 4 (CGA) Gait Does the Patient Walk?: Yes Mode of Locomotion: Both (w/C used for distance) Walk 10 feet (QC): 4 (CGA) Walk 50 ft with 2 Turns(QC): 88 Walk 150 ft (QC): 8 Distance: 10 Gait Assistive Device: FWW Comments/Gait Description Slow with forward posture. Verbal cues needed to stay inside RW. Patient becomes tired quickly. Balance Sitting Static: Normal (B hands used) Treatment Balance, gait, strength, transfer, stairs, and energy conservation training for safety. Assessment/Needs Patient becomes confused at times and does not understand his current condition or safety precautions needed. Patient cannot ambulate far due to weakness in BLE and has a hard time following simple commands. Patient was placed in recliner in room with feet up, call light in lap, and tray in reach, chair alarm on. Rehab Potential: Fair Equipment Needs RW portable o2 PT Ear Nose Throat Surgeon Goals [facility]itentiary Goals PT Ear Nose Throat Surgeon Goals Time Frame: Feb 14, 2020 Roll Left & Right (QC): 6 Sit to Lying (QC): 6 Lying-Sitting on Side/Bed(QC): 6 Sit to Stand (QC): 4 Chair/Hyh-xv-Gonxe Xfer(QC): 4 Walk 10 feet (QC): 4 Walk 50ft with 2 Turns (QC): 4 PT Plan Problem List Problem List: Activity Tolerance, Functional Strength, Safety, Balance, Gait, Transfer, Bed Mobility Treatment/Plan Treatment Plan: Continue Plan of Care Treatment Plan: Bed Mobility, Education, Functional Activity Gary, Functional Strength, Gait, Safety, Therapeutic Exercise, Transfers Treatment Duration: Feb 14, 2020 Frequency: 6 times per week Estimated Hrs Per Day: .25 hour per day Patient and/or Family Agrees t: Yes Safety Risks/Education Patient Education: Gait Training, Transfer Techniques, Correct Positioning, Safety Issues Teaching Recipient: Patient Teaching Methods: Demonstration, Discussion Response to Teaching: Reinforcement Needed Discharge Recommendations Plan Patient will perform bed mobility and transfer training, balance and endurance training, functional strengthening, stair training, gait training, and education, to improve functional mobility and independence at home. Therapy Discharge Recommendati: Assisted Living, Home & Family Time/GCodes Time In: 1509 Time Out: 1527 Total Billed Treatment Time: 18 Total Billed Treatment 1 visit JAY SMITH PT Feb 07, 2020 15:39
--- NOTE | 2020-02-07 15:52 | Occupational Therapy Eval ---
OT Evaluation-General/PLF Medical Diagnosis Admission Date Feb 07, 2020 at 04:00 Medical Diagnosis: Prostatectomy, cardiac disorders Onset Date: Feb 05, 2020 Therapy Diagnosis Therapy Diagnosis: impaired ADLs/functional mobility Precautions Precautions/Isolations: Fall Prevention, Standard Precautions Safety Interventions: Bed Exit Alarm Referral Physician: Melody Referral Reason: Evaluation/Treatment Medical History Additional Medical History TURP (3 months ago), CAD, high cholesterol, HTN, DM Current History Per H&P: "84-year-old male with past medical history of TURP 3 months ago presented to the emergency room due to inability to urinate. He was actually admitted yesterday due to severe sepsis from UTI but left AMA prior to being seen. He returned this evening due to worsening issues with urination and hematuria when he was able to urinate. A catheter was placed in the emergency room. He was found to have an elevated creatinine and he is unsure if this is normal for him. BNP and troponin were also elevated. He has no new complaints at this time." Reviewed History: Yes Social History Home: [facility] Current Living Status: Children Entry Into Home: Stairs With Railing Steps Into Home: 5 ADL-Prior Level of Function SCALE: Activities may be completed with or without assistive devices. 8-Zdvejgbzbg-yttglyy completes the activity by him/herself with no assistance from a helper. 5-Set-up or Clean-up Assistance-helper sets up or cleans up; patient completes activity. [place] assists only prior to or following the activity. 4-Supervision or Touching Assistance-helper provides verbal cues and/or touching/steadying and/or contact guard assistance as patient completes activity. Assistance may be provided throughout the activity or intermittently. 3-Partial/Moderate Assistance-helper does LESS THAN HALF the effort. [place] lifts, holds or supports trunk or limbs, but provides less than half the effort. 2-Substantial/Maximal Assistance-helper does MORE THAN HALF the effort. [place] lifts or holds trunk or limbs and provides more than half the effort. 1-Jcjulvatw-cowjfb does ALL the effort. Patient does none of the effort to complete the activity. Or, the assistance of 2 or more helpers is required for the patient to complete the activity. If activity was not attempted, code reason: 7-Patient Refused. 9-Not Applicable-not attempted and the patient did not perform the activity before the current illness, exacerbation or injury. 10-Not Attempted due to Environmental Limitations-(lack of equipment, weather restraints, etc.). 88-Not Attempted due to Medical Conditions or Safety Concerns. ADL PLOF Comments Pt reports he was independent with bathing and dressing although he primarily took sponge baths. He did not use AD for functional mobility, but did steady himself by holding onto the furniture and leaning on the [place]. His son primarily completes the cooking, and his son's girlfriend does the cleaning. Self Care: Needed Some Help Functional Cognition: Independent OT Current Status Subjective Pt seated in recliner post PT, he agreed to OT evaluation on this date. Pt attempted to take oxygen off, OT educated pt on importance of keeping it on, pt reluctantly agreed. Pain Numeric Pain Scale: 2 Mental Status/Objective Patient Orientation: Person, Place, Time, Situation Attachments: Palencia Catheter, Oxygen Current Glasses/Contacts: No Hearing Aids: No Dentures/Partials: Yes Upper Extremity ROM pt reports having difficulties with his left shoulder, L shoulder flexion to ~110 degrees, R shoulder flexion to ~150 degrees. He had difficulty opening his right hand due to a contracture, pt reports his index and middle finger "freeze" straight, and his ring and small finger have difficulty straightening. Upper Extremity Coordination slightly decreased due to decreased function in right hand due to contracture and fingers "freezing" Upper Extremity Sensation pt denies tingling/numbness BUEs, he does report some tingling/numbness in legs and feet Upper Extremity Strength grossly 4/5 MMT ADL-Treatment Eating (QC): 6 (Pt able to bring water to his mouth to take a drink) Other Treatments Pt seated in recliner post PT session, agreeable to OT eval at this time. OT educated pt on the purpose and benefits of OT. He provided information about PLOF and home set up, and he participated in ROM screening. He states his pain is not too bad at this time, rating it ~2/10. Pt was able to take a drink of water when he needed to without difficulty. Pt pleasantly declined other ADLs at this time stating he would like to rest. OT educated pt on POC while he is admitted at the hospital, he verbalized understanding. Post OT session, pt seated in recliner, call light in reach and all needs met, aide present. Education OT Patient Education: Correct positioning, Energy conservation, Modified ADL techniques, Progress toward Goal/Update tx plan, Purpose of tx/functional activities Teaching Recipient: Patient Teaching Methods: Discussion Response to Teaching: Verbalize Understanding OT Power And Recovery Shift Engineer Goals Power And Recovery Shift Engineer Goals Time Frame: Feb 16, 2020 Oral Hygiene (QC): 6 Toileting Hygiene (QC): 6 Shower/Bathe Self (QC): 4 Upper Body Dressing (QC): 5 Lower Body Dressing (QC): 4 On/Off Footwear (QC): 4 1=Demonstrate adherence to instructed precautions during ADL tasks. 2=Patient will verbalize/demonstrate understanding of assistive devices/modifications for ADL. 3=Patient will improve strength/tolerance for activity to enable patient to perform ADL's. OT Education/Plan Problem List/Assessment Assessment: Decreased Activ Tolerance, Decreased UE Strength, Impaired Funct Balance, Impaired I ADL's, Impaired Self-Care Skills, Restricted Funct UE ROM Discharge Recommendations Plan/Recommendations: Continue POC Therapy Discharge Recommendati: Home & Family Treatment Plan/Plan of Care Patient would benefit from OT for education, treatment and training to promote independence in ADL's, mobility, safety and/or upper extremity function for ADL's. Plan of Care: ADL Retraining, Functional Mobility, UE Funct Exercise/Act Treatment Duration: Feb 16, 2020 Frequency: 5 times per week Estimated Hrs Per Day: .25 hour per day Agreement: Yes Rehab Potential: Fair Time/GCodes Start Time: 15:27 Stop Time: 15:35 Total Time Billed (hr/min): 8 Billed Treatment Time 1, MAHAD BRITO OT Feb 07, 2020 15:52
[2020-02-07] MEDS: CYCLOBENZAPRINE 10 MG (FLEXERIL) TAB PO PRN (15:54)
--- NOTE | 2020-02-07 17:53 | CONSULTATION REPORT ---
DATE OF SERVICE: 02/07/2020 ATTENDING PHYSICIAN: Dr. Flores. SUMMARY: An 84-year-old white man, who had a TURP three months ago by Dr. Pendleton in [place], was admitted with possible sepsis and UTI, was found to have gross hematuria. The catheter was inserted in the emergency room with recovering of urine and the urine turned bloody with some clots. Catheter still draining pretty good amounts of urine. The patient was on a heparin and it was discontinued. He was not on any other blood thinners before or after admission. He is wearing a diaper, apparently has issues with control of his urine. I looked at the catheter, it now is draining tinged urine with no clots. The phallus has adequate meatus. Testes down the scrotum. Rectal exam is deferred. IMPRESSION: Gross hematuria, UTI, possible sepsis. RECOMMENDATION: Encouraged fluid as much as his heart can sustain. PLAN: Continue IV antibiotics. Keep the same catheter; if needed it could be changed to a 3-way catheter with CBI. At this point, I will not do that and once he clears up, take the catheter out, see how he voids, clear urine or no and manage accordingly. I also offered him if he wants to follow up with me in a closer location or go back to Dr. Pendleton after dismissal. Thank you for letting me participate in the care of this patient. We will follow with you. Job ID: [id number] DocumentID: [id number] Dictated Date: 02/07/2020 10:05:12 Social Group Worker Date: 02/07/2020 10:35:24 Dictated By: KYA NOGUEIRA MD
[2020-02-07] MEDS ORDERED: RT-ALBUTEROL/IPRATROPIUM 3 ML (DUONEB) VIAL INH PRN (18:00)
[2020-02-07] MEDS: RT-ALBUTEROL/IPRATROPIUM 3 ML (DUONEB) VIAL INH SCH (22:07)
[2020-02-08] VITALS (7 sets, daily range): BP systolic 103–152; BP diastolic 53–78
[2020-02-08] MEDS ORDERED: WATER (STERILE) FOR INJECTION 10 ML ONE ×2 (02:47→03:00)
[2020-02-08] MEDS ORDERED: ceFAZolin INJECTION 1,000 MG ONE (02:47)
[2020-02-08] MEDS ORDERED: cefTRIAXone 1,000 MG IV (ROCEPHIN) VIAL ONE (03:00)
[2020-02-08] MEDS: cefTRIAXone 1,000 MG/SWFI 10 ML IV PUSH IV SCH ×2 (03:07)
[2020-02-08] MEDS: MILK OF MAGNESIA 400 MG/5 ML 30 ML UDC PO PRN (08:13)
[2020-02-08] MEDS: meTOproloL SUCCINATE 50 MG (TOPROL XL) TAB PO SCH (08:13)
[2020-02-08] MEDS: ASPIRIN 81 MG CHEW (CHILDREN'S ASA) PO SCH (08:13)
--- NOTE | 2020-02-08 08:42 | Cardiology Progress Note ---
Subjective Date Seen by Provider: Feb 08, 2020 Time Seen by Provider: 08:41 Subjective/Events-last exam Patient is sitting up in chair, denies any chest pain. C/o mild dyspnea. Review of Systems General: No Chills, No Night Sweats, No Fatigue, No Malaise, No Appetite, No Ot her HEENT: No Head Aches, No Visual Changes, No Eye Pain, No Ear Pain, No Dysphasia, No Sinus Congestion, No Post Nasal Drip, No Sore Throat, No Other Pulmonary: No Dyspnea, No Cough, No Pleuritic Chest Pain, No Other Cardiovascular: No: Chest Pain, Palpitations, Orthopnea, Paroxysmal Noc. Dyspnea, Edema, Lt Headedness, Other Focused Exam Lactate Level 02/07/20 06:25: Lactic Acid Level 0.90 Objective-Cardiology Exam Last Set of Vital Signs Vital Signs 02/08/20 02/08/20 07:26 08:15 Temp 37.4 Pulse 66 Resp 20 B/P (MAP) 107/53 (71) Pulse Ox 96 O2 Delivery Nasal Cannula O2 Flow Rate 1.00 Capillary Refill : Less Than 3 Seconds I&O Intake and Output 02/07/20 23:59 Intake Total 1250 ml Output Total 1265 ml Balance -15 ml Intake Oral 1240 ml IV Total 10 ml Output Urine Total 1265 ml Daily Weight Change No General: Alert, Oriented X3, Cooperative HEENT: Atraumatic, PERRLA Neck: Supple, No JVD, No Thyromegaly Lungs: Other (decreased breath sounds bibasilarly) Heart: Regular Rate, Normal S1, Normal S2, No Murmurs Abdomen: Normal Bowel Sounds, Soft Extremities: No Edema Skin: No Rashes, No Significant Lesion Neuro: Normal Speech Psych/Mental Status: Mental Status NL, Mood NL Results Lab Laboratory Tests Test 02/07/20 14:40 Range/Units Troponin I 0.107 H <0.028 NG/ML A/P-Cardiology Assessment/Plan Acute renal failure, improving, continue to monitor. Dysuria, then anuria, now relieved (after bladder cath) UTI- continue on antibiotics, Hematuria. H/o recent TURP at [facility], Dr. Butler following. Small NSTEMI, clinically stable, denies any chest pain, continue conservative management. DM II Hypertension- controlled, conitnue to monitor. Hyperlipidemia, continue to monitor lipids. Patient was seen and evaluated with Bren, examination performed, management plan was discussed, agree with the current scribed note, I made few changes to the note using Italic font Patient is still having active hematuria, denied any chest pain, mild elevation in troponin On examination lungs were clear to auscultation, heart is regular, cannot tolerate aggressive anticoagulation due to the active bleeding. We can consider cardiac catheterization versus stress test was clinically more stable. I will consider cardiac catheter if he becomes symptomatic Continue to monitor blood pressure and lipids Clinical Quality Measures DVT/VTE Risk/Contraindication: Risk Factor Score Per Nursin RFS Level Per Nursing on Admit: 4+=Very High BREN VAZQUEZ Feb 08, 2020 8:42 am VALERIA COLEMAN MD Feb 08, 2020 11:42 am
--- NOTE | 2020-02-08 09:40 | Physical Therapy Daily Note ---
PT Daily Note-Current Subjective Patient is very agreeable to participate with PT. Pain Numeric Pain Scale: 0-No Pain Location: No Pain Reported Mental Status Attachments: Oxygen, Palencia Catheter Transfers SCALE: Activities may be completed with or without assistive devices. 9-Ywmcxunvut-aojwros completes the activity by him/herself with no assistance from a helper. 5-Set-up or Clean-up Assistance-helper sets up or cleans up; patient completes activity. [place] assists only prior to or following the activity. 4-Supervision or Touching Assistance-helper provides verbal cues and/or rodolfo kaylee/steadying and/or contact guard assistance as patient completes activity. Assistance may be provided throughout the activity or intermittently. 3-Partial/Moderate Assistance-helper does LESS THAN HALF the effort. [place] lifts, holds or supports trunk or limbs, but provides less than half the effort. 2-Substantial/Maximal Assistance-helper does MORE THAN HALF the effort. [place] lifts or holds trunk or limbs and provides more than half the effort. 1-Hyouwlaeg-zpegxy does ALL the effort. Patient does none of the effort to complete the activity. Or, the assistance of 2 or more helpers is required for the patient to complete the activity. If activity was not attempted, code reason: 7-Patient Refused. 9-Not Applicable-not attempted and the patient did not perform the activity before the current illness, exacerbation or injury. 10-Not Attempted due to Environmental Limitations-(lack of equipment, weather restraints, etc.). 88-Not Attempted due to Medical Conditions or Safety Concerns. Sit to Stand (QC): 4 Weight Bearing Right Lower Extremity: Right Weight Bearing/Tolerated Left Lower Extremity: Left Weight Bearing/Tolerated Gait Training Does the Patient Walk?: Yes Distance: 75' Walk 10 feet (QC): 4 Walk 50 ft with 2 Turns(QC): 4 Walk 150 ft (QC): 88 Gait Assistive Device: FWW slow, steady gait sequence with FWW Exercises Seated Therapy Exercises: Ankle pumps, Long arc quads Seated Reps: 12 Assessment Patient tolerates minimal activity and appears to self limit. PT to increase activity as tolerated by patient. PT Plan Treatment/Plan Treatment Plan: Continue Plan of Care Treatment Plan: Bed Mobility, Education, Functional Activity Gary, Functional Strength, Gait, Safety, Therapeutic Exercise, Transfers Treatment Duration: Feb 17, 2020 Frequency: 5 times per week Estimated Hrs Per Day: .25 hour per day Patient and/or Family Agrees t: Yes Time/GCodes Time In: 841 Time Out: 850 Total Billed Treatment Time: 9 Total Billed Treatment 1 visit GT 9 min JING PEDERSON PT Feb 08, 2020 09:40
--- NOTE | 2020-02-08 10:21 | Occupational Ther Daily Note ---
OT Current Status-Daily Note Subjective Pt sitting upright in recliner at start of session, required mod encouragement to participate in OT session. Pt reports pain ~2/10 at his buttocks, stating he has a sore. Pain Numeric Pain Scale: 2 Mental Status/Objective Attachments: Palencia Catheter, Oxygen (1L) ADL-Treatment Therapy Code Descriptions/Definitions Functional [place] Measure: 0=Not Assessed/NA 4=Minimal Assistance 1=Total Assistance 5=Supervision or Setup 2=Maximal Assistance 6=Modified [place] 3=Moderate Assistance 7=Complete IndependenceSCALE: Activities may be completed with or without assistive devices. 7-Xqhixfzvjf-poknkqv completes the activity by him/herself with no assistance from a helper. 5-Set-up or Clean-up Assistance-helper sets up or cleans up; patient completes activity. [place] assists only prior to or following the activity. 4-Supervision or Touching Assistance-helper provides verbal cues and/or touching/steadying and/or contact guard assistance as patient completes activity. Assistance may be provided throughout the activity or intermittently. 3-Partial/Moderate Assistance-helper does LESS THAN HALF the effort. [place] l ifts, holds or supports trunk or limbs, but provides less than half the effort. 2-Substantial/Maximal Assistance-helper does MORE THAN HALF the effort. [place] lifts or holds trunk or limbs and provides more than half the effort. 6-Mrmmsfnvd-vyzbrv does ALL the effort. Patient does none of the effort to complete the activity. Or, the assistance of 2 or more helpers is required for t he patient to complete the activity. If activity was not attempted, code reason: 7-Patient Refused. 9-Not Applicable-not attempted and the patient did not perform the activity before the current illness, exacerbation or injury. 10-Not Attempted due to Environmental Limitations-(lack of equipment, weather restraints, etc.). 88-Not Attempted due to Medical Conditions or Safety Concerns. Other Treatment Pt sitting upright in recliner, stating he is having slight pain in his buttocks , he is able to use his arms in order to shift his weight while he is seated. Pt required mod encouragement to participate in OT session this morning, he stated he just got up and took a walk with PT and he has used the restroom and he would not like to get up at this time. OT educated pt on the purpose and benefits of completing UE exercises throughout the day, demo'ing various exercises for pt. Pt verbalized understanding, requiring mod encouragement in order to pt to complete x2 reps of each exercises. OT educated pt to complete exercises within comfortable limits, due to him stating he has increased pain in his shoulder when he moves it. Pt verbalized he would complete the exercises throughout the day. Post OT session, pt seated upright in recliner, call light in reach and all needs met. Education OT Patient Education: Correct positioning, Energy conservation, Exercise program, Modified ADL techniques, Progress toward Goal/Update tx plan, Purpose of tx/functional activities Teaching Recipient: Patient Teaching Methods: Discussion Response to Teaching: Verbalize Understanding OT Copper Miner Goals Copper Miner Goals Time Frame: Feb 16, 2020 Oral Hygiene (QC): 6 Toileting Hygiene (QC): 6 Shower/Bathe Self (QC): 4 Upper Body Dressing (QC): 5 Lower Body Dressing (QC): 4 On/Off Footwear (QC): 4 1=Demonstrate adherence to instructed precautions during ADL tasks. 2=Patient will verbalize/demonstrate understanding of assistive devices/modifications for ADL. 3=Patient will improve strength/tolerance for activity to enable patient to perform ADL's. OT Education/Plan Problem List/Assessment Assessment: Decreased Activ Tolerance, Decreased UE Strength, Impaired I ADL's, Impaired Self-Care Skills, Restricted Funct UE ROM Discharge Recommendations Plan/Recommendations: Continue POC Treatment Plan/Plan of Care Patient would benefit from OT for education, treatment and training to promote independence in ADL's, mobility, safety and/or upper extremity function for ADL's. Plan of Care: ADL Retraining, Functional Mobility, UE Funct Exercise/Act Treatment Duration: Feb 16, 2020 Frequency: 5 times per week Estimated Hrs Per Day: .25 hour per day Agreement: Yes Rehab Potential: Fair Time/GCodes Start Time: 10:00 Stop Time: 10:08 Total Time Billed (hr/min): 8 Billed Treatment Time 1, MAHAD CRISTINA OT Feb 08, 2020 10:21
--- NOTE | 2020-02-08 10:44 | Progress Note - Urology ---
Progress Note-Urology Progress Notes/Assess & Plan Progress/Assessment & Plan URINE STILL TINGED. NOT DRINKING ENOUGH. NEEDS TO IN ORDER TO CLEAR URINE PLAN NON CONTRAST CTS AND LATER WILL NEED A CYSTOSCOPY Final Diagnosis GROSS HEMATURIA KYA NOGUEIRA MD Feb 08, 2020 10:44
[2020-02-08] MEDS: RT-ALBUTEROL/IPRATROPIUM 3 ML (DUONEB) VIAL INH SCH ×2 (10:56→23:11)
--- NOTE | 2020-02-08 11:07 | NUR ---
"RD ASSESSMENT PMHx: CAD; hypercholesterolemia; HTN; BPH; DM; SurgHx: TURP (3mon ago) PT INTERACTION: Pt was awake and pleasant during nutrition assessment. Pt states current appetite is poor and it had been this way for a couple of days. Note avg PO intake between 50-75% of meals, per chart review. Pt states following a regular diet at home, and has some issues chewing as he does not have his dentures with him. Pt states no recent issues with n/v at this time. Pt states some issues with constipation, and that his last BM was 02/04. Note pt not currently on bowel regimen per chart review. Pt states no recent wt changes. Note unable to determine recent wt hx, per chart review. Pt states current DM management is pretty good. Note unable to determine recent HbA1c, per chart review. ABNORMAL NUTRITION-RELATED LAB VALUES LOW: HIGH: BNU 54; cr 2.52; glu 137; alkphos 145 Est. kcal needs: 2451-0213 kcal | 25-30 kcal/kg Est. Pro needs: 64-80 g Pro | 0.8-1.0 g Pro/kg PES STATEMENT: Inadequate oral intake (NI-2.1) related to loss of appetite | constipation as evidenced by pt interview | avg PO intake 50-75% of meals INTERVENTION: Continue with current diet order of 2000mg Na diet. Pt may benefit from adding consistent CHO modifier to diet order if blood glucose levels remain elevated. Add Glucerna (vary) to meals TID, for increased kcal intake. Provides 220 kcal and 10 g Pro per serving. Pt may benefit from more aggressive bowel regimen if constipation persists. Will continue to follow and reassess as pt needs, intake, and status change. MONITOR/EVALUATE: PO Intake; Plan of Care; Hydration Status; Weight Status; Lab Values Devi Burleson, MS, RD, LD"
[2020-02-08 12:05] LABS: MEAN PLATELET VOLUME 9.6 FL (7.4-10.4); RED CELL DISTRIBUTION WIDTH 14.8 % (10.0-14.5); WHITE BLOOD COUNT 17.7 10^3/uL (4.3-11.0)
[2020-02-08 12:20] LABS: CALCIUM 8.1 MG/DL (8.5-10.1); CREATININE SERUM 1.99 MG/DL (0.60-1.30); POTASSIUM 4.7 MMOL/L (3.6-5.0)
--- NOTE | 2020-02-08 12:41 | Diagnostic Imaging Report ---
PROCEDURE: CT abdomen and pelvis without contrast. TECHNIQUE: Multiple contiguous axial images were obtained through the abdomen and pelvis without the use of intravenous contrast. Auto Exposure Controls were utilized during the CT exam to meet ALARA standards for radiation dose reduction. INDICATION: Elevated troponin, gross hematuria. COMPARISON: No prior studies are available for comparison. FINDINGS: Moderate right and small left pleural effusion is noted. Liver and gallbladder are unremarkable. No biliary ductal dilatation is seen. Pancreas and spleen are unremarkable. No adrenal mass is detected. Both kidneys contain cortical low densities, suggestive of cysts. The largest is in left kidney measuring approximately 4 cm. No definite renal or ureteral calculi are seen. Aorta is heavily calcified. Iliac vessels are calcified. No aneurysm is identified. Small and large bowel loops are normal in caliber. Prostate is significantly enlarged. The bladder is decompressed by a Palencia catheter. There is some gas within the urinary bladder. No free fluid or fluid collection in the abdomen or pelvis is seen. IMPRESSION: 1. Moderate right and small left pleural effusion. 2. Bilateral renal cysts. 3. Prostatomegaly. 4. No other significant abnormality is detected. Dictated by: Dictated on workstation # [id number]
--- NOTE | 2020-02-08 13:13 | NUR ---
CM/SS follow up with the patient. The patient was more awake and willing to talk today. The patient confirmed that he lived with his son for "about" 2 days before coming into the hospital. CM/SS contacted [facility] ([phone]) and spoke with Carlos who informed this ss that he was admitted there skilled on 01/29/20 and discharge on 02/05/20. The facility stated that they were still working with him with therapies; but the patient chose to leave the facility. He does not have any other caregivers except his son (Dawson)and son's girlfriend. The patient is unsure if the son will be able to take care of him at home and does not want to be a burden on them. The patient reports that he is only getting about 1,000 a month on social security but he believes that his son gets money from disability. Unsure of how much. CM/SS discussed how the patient thought he was able to get around and do at home. He states he walks in the house without any assistive devices (other than just the [place]). He dresses and bathes himself but cannot cook or do other homemaker tasks. The patient verbalized that his son's girlfriend takes care of that. Will continue to follow for discharge planning.
[2020-02-08] MEDS ORDERED: METF-397 PO (13:38)
[2020-02-08] MEDS ORDERED: SENN-141 PO (13:38)
[2020-02-08] MEDS ORDERED: POLY17PO6 PO (13:38)
[2020-02-08] MEDS ORDERED: BUME1TAB8 PO (13:38)
[2020-02-08] MEDS ORDERED: CARV6.252 PO (13:38)
[2020-02-08] MEDS ORDERED: LISI-556 PO (13:38)
[2020-02-08] MEDS ORDERED: RT-ALBUINH (13:38)
[2020-02-08] MEDS ORDERED: SIME80TA16 PO (13:38)
[2020-02-08] MEDS ORDERED: DOCU100T2 PO (13:38)
[2020-02-08] MEDS ORDERED: MAGN400O7 PO (13:41)
[2020-02-08] MEDS ORDERED: OMEP20CA18 PO (13:41)
[2020-02-08] MEDS ORDERED: ONDA-105 PO (13:41)
[2020-02-08] MEDS ORDERED: ALB0.5V INH (13:41)
[2020-02-08] MEDS ORDERED: ASPI-999 PO (13:43)
--- NOTE | 2020-02-08 13:44 | NUR ---
SPOKE WITH PT, WENT THRU THE EXT MED HISTORY, [facility] HE WAS IN TO COMPLETE THE MED REC. PT WAS RECENTLY AT [facility] FROM 01-29-2020 TO 02-05-2020 THEN LEFT AMA. HE CAN HERE SHORTLY AFTER LEAVING THERE AND STAYED FOR A SHORT TIME BEFORE HE LEFT HERE AMA. HE THEN RETURNED AND HAS BEEN HERE SINCE. THE PT DID NOT KNOW ANY OF HIS MEDICATION AND SUGGESTED I REACH OUT TO THE [facility] FOR A LIST. I CONTACTED THE [facility] AND WAS TOLD THEY CAN SEND ME A MED LIST BUT THEY KNEW IT WAS NOT UP TO DATE. THEY DID SEND A MED LIST BUT I AM NOT ATTACHING ON THE CHART DUE TO THE FACT THAT HE IS NO LONGER ON THOSE MEDS. I CALLED THE [facility] AND GOT A MAR OF THE MEDS HE WAS ON WHEN HE WAS THERE AND THAT IS WHAT I ENTERED ON THE MED REC.THE PT STATES HE WAS ONLY OUT OF THE [facility] FOR 1 EVENING BEFORE HE CAN HERE AND DID NOT TAKE ANY MEDICATIONS. I WILL ATTACH A COPY OF THIS ON HIS CHART FOR FURTHER/FUTURE REVIEW
--- NOTE | 2020-02-08 14:20 | Progress Note - Hospitalist ---
Subjective HPI/CC On Admission Date Seen by Provider: Feb 08, 2020 Time Seen by Provider: 14:15 84-year-old male with past medical history of TURP 3 months ago presented to the emergency room due to inability to urinate. He was actually admitted yesterday due to severe sepsis from UTI but left AMA prior to being seen. He returned this evening due to worsening issues with urination and hematuria when he was able to urinate. A catheter was placed in the emergency room. He was found to have an elevated creatinine and he is unsure if this is normal for him. BNP and troponin were also elevated. He has no new complaints at this time. Subjective/Events-last exam Pt reports feeling well. No complaints. Urine still red. Complains of itching in his legs. Focused Exam Lactate Level 02/07/20 06:25: Lactic Acid Level 0.90 Objective Exam Vital Signs Vital Signs Date Time Temp Pulse Resp B/P (MAP) Pulse Ox O2 Delivery O2 Flow Rate FiO2 02/08/20 12:14 37.4 55 20 133/61 (85) 98 Nasal Cannula 1.00 Capillary Refill : Less Than 3 Seconds General Appearance: No Apparent Distress, Chronically ill Respiratory: Lungs Clear, No Respiratory Distress Cardiovascular: Regular Rate, Rhythm, No Murmur Genital/Rectal: Other (mcdermott in place with red urine) Extremity: No Calf Tenderness, No Pedal Edema Neurologic/Psychiatric: Alert, Oriented x3 Results/Procedures Lab Laboratory Tests 02/08/20 12:00 Patient resulted labs reviewed. Assessment/Plan Assessment and Plan Assess & Plan/Chief Complaint UTI Urinary Retention Hematuria Catheter in place Continue Rocephin Previous culture with no growth Urology Consulted, appreciate recs Elevated Troponin CAD Elevated BNP Cardiology consulted, appreciate works Echo shows EF of 40%, grade 2 diastolic dysfunction medical management per Dr Gillespie due to atif hematuria Metoprolol JUANCARLOS Creatinine improved to 1.99 Unsure of baseline but anticipate acute issue due to retention Trend DVT ppx: Unable to wear SCDs due to pain and Lovenox contraindicated due to hematuria. Diagnosis/Problems Diagnosis/Problems (1) Elevated troponin I level Status: Acute (2) Acute urinary retention Status: Acute (3) Renal failure Status: Acute Qualifiers: Renal failure chronicity: unspecified chronicity Qualified Codes: N19 - Unspecified kidney failure (4) Urinary tract infection Status: Acute Qualifiers: Urinary tract infection type: acute cystitis Hematuria presence: with hematuria Qualified Codes: N30.01 - Acute cystitis with hematuria Clinical Quality Measures DVT/VTE Risk/Contraindication: Risk Factor Score Per Nursin RFS Level Per Nursing on Admit: 4+=Very High KIKE KAN MD Feb 08, 2020 14:20
[2020-02-08] MEDS: diphenhydrAMINE 25 MG TAB (BENADRYL) PO PRN (15:03)
[2020-02-08] MEDS: SENNA W/DOCUSATE (SENOKOT S) TABLET PO PRN ×2 (15:03→22:07)
[2020-02-09] VITALS (9 sets, daily range): BP systolic 81–131; BP diastolic 36–66
--- OUTSIDE RECORDS SUMMARY | 2020-02-09 01:29 | XMS REPORT | Continuity of Care Document ---
Author Organization Unknown Address Unknown Phone Unavailable Allergies Active Description Code Type Severity Reaction Onset Reported/Identified Relationship to Patient Clinical Status Yes pneumococcal vaccines 224 Drug N/A N/A Yes pneumonia vaccine pneumonia vaccine Unknown N/A 02/06/2020 Medications There is no data. Problems Date Dx Coded Attending Type Code Diagnosis Diagnosed By 02/06/2020 DESIRE SOLIS MD, Ot A41. 9 SEPSIS, UNSPECIFIED ORGANISM 02/06/2020 DESIRE SOLIS MD, Ot E11. 9 TYPE 2 DIABETES MELLITUS WITHOUT COMPLIC 02/06/2020 DESIRE SOLIS MD, Ot E78. 00 PURE HYPERCHOLESTEROLEMIA, UNSPECIFIED 02/06/2020 DESIRE SOLIS MD Ot I10 ESSENTIAL (PRIMARY) HYPERTENSION 02/06/2020 DESIRE SOLIS MD Ot I21. 4 NON-ST ELEVATION (NSTEMI) MYOCARDIAL INF 02/06/2020 DESIRE SOLIS MD Ot J90 PLEURAL EFFUSION, NOT ELSEWHERE CLASSIFI 02/06/2020 DESIRE SOLIS MD Ot N17. 9 ACUTE KIDNEY FAILURE, UNSPECIFIED 02/06/2020 DESIRE SOLIS MD Ot N39. 0 URINARY TRACT INFECTION, SITE NOT SPECIF 02/06/2020 DESIRE SOLIS MD Ot R65. 20 SEVERE SEPSIS WITHOUT SEPTIC SHOCK 02/06/2020 DESIRE SOLIS MD Ot Z66 DO NOT RESUSCITATE 02/06/2020 DESIRE SOLIS MD Ot Z87.891 PERSONAL HISTORY OF NICOTINE DEPENDENCE 02/06/2020 DESIRE SOLIS MD Ot Z90. 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 02/08/2020 MASON HANSEN MD, Ot J90 PLEURAL EFFUSION, NOT ELSEWHERE CLASSIFI 02/08/2020 MASON HANSEN MD, Ot N17.9 ACUTE KIDNEY FAILURE, UNSPECIFIED 02/08/2020 MASON HANSEN MD, Ot N30.01 ACUTE CYSTITIS WITH HEMATURIA 02/08/2020 MASON HANSEN MD, Ot R09.02 HYPOXEMIA 02/08/2020 MASON HANSEN MD, Ot R33.9 RETENTION OF URINE, UNSPECIFIED 02/08/2020 MASON HANSEN MD, Ot R41.0 DISORIENTATION, UNSPECIFIED 02/08/2020 MASON HANSEN MD, Ot Z66 DO NOT RESUSCITATE 02/08/2020 MASON HANSEN MD, Ot Z87.891 PERSONAL HISTORY OF NICOTINE DEPENDENCE 02/08/2020 MASON HANSEN MD, Ot Z90.79 ACQUIRED ABSENCE OF OTHER GENITAL ORGAN( Procedures There is no data. Results Test Result Range Complete blood count (CBC) with automate d white blood cell (WBC) differential - 02/05/20 23:00 Blood leukocytes automated count (number/volume) 15.3 10*3/uL 4.3-11.0 Blood erythrocytes automated count (number/volume) 3.33 10*6/uL 4.35-5.85 Venous blood hemoglobin measurement (mass/volume) 8.6 g/dL 13.3-17.7 Blood hematocrit (volume fraction) 28 % 40-54 Automated erythrocyte mean corpuscular volume 84 [ foz_us] 80-99 Automated erythrocyte mean corpuscular h emoglobin (mass per erythrocyte) 26 pg 25-34 Automated erythrocyte mean corpuscular h emoglobin concentration measurement (mass/volume) 31 g/dL 32-36 Automated erythrocyte distribution width ratio 14. 6 % 10.0- 14.5 Automated blood platelet count (count/volume) 374 10*3/uL 130-400 Automated blood platelet mean volume measurement 11.1 [foz_us] 7.4-10.4 Automated blood neutrophils/100 leukocytes 68 % 42-75 Automated blood lymphocytes/100 leukocytes 17 % 12-44 Blood monocytes/100 leukocytes 8 % 0-12 Automated blood eosinophils/100 leukocytes 7 % 0-10 Automated blood basophils/100 leukocytes 1 % 0-10 Blood neutrophils automated count (number/volume) 10.4 10*3 1.8-7.8 Blood lymphocytes automated count (number/volume) 2.5 10*3 1.0-4.0 Blood monocytes automated count (number/volume) 1. 2 10*3 0.0-1.0 Automated eosinophil count 1.1 10*3/uL 0 .0-0.3 Automated blood basophil count (count/volume) 0.1 10*3/uL 0.0-0.1 Serum or plasma troponin i.cardiac measu rement (mass/volume) - 02/05/20 23:00 Serum or plasma troponin i.cardiac measurement (mass/v olume) 0.093 ng/mL <0.028 Comprehensive metabolic panel - 02/05/20 23:00 Serum or plasma sodium measurement (moles/volume) 139 mmol/L 135-145 Serum or plasma potassium measurement (moles/volume) 5.0 mmol/L 3.6-5.0 Serum or plasma chloride measurement (moles/volume) 104 mmol/L 98-107 Carbon dioxide 23 mmol/L 21-32 Serum or plasma anion gap determination (moles/volume) 12 mmol/L 5-14 Serum or plasma urea nitrogen measurement (mass/volume ) 59 mg/dL 7-18 Serum or plasma creatinine measurement (mass/volume) 2.45 mg/dL 0.60-1.30 Serum or plasma urea nitrogen/creatinine mass ratio 24 NRG Serum or plasma creatinine measurement w ith calculation of estimated glomerular filtration rate 25 NRG Serum or plasma glucose measurement (mass/volume) 122 mg/dL 70-105 Serum or plasma calcium measurement (mass/volume) 8.2 mg/dL 8.5-10.1 Serum or plasma total bilirubin measurement (mass/volu me) 0.2 mg/dL 0.1-1.0 Serum or plasma alkaline phosphatase patricia surement (enzymatic activity/volume) 147 U/L 40-136 Serum or plasma aspartate aminotransfera se measurement (enzymatic activity/volume) 17 U/L 5-34 Serum or plasma alanine aminotransferase measurement (enzymatic activity/volume) 19 U/L 0-55 Serum or plasma protein measurement (mass/volume) 6.2 g/dL 6.4-8.2 Serum or plasma albumin measurement (mass/volume) 3.3 g/dL 3.2-4.5 CALCIUM CORRECTED 8.8 mg/dL 8.5-10.1 Magnesium - 02/05/20 23:00 Magnesium 2.8 mg/dL 1.6-2.4 PT panel in platelet poor plasma by coag ulation assay - 02/05/20 23:00 Prothrombin time (PT) in platelet poor plasma by coagu lation assay 14.1 s 12.2-14.7 INR in platelet poor plasma or blood by coagulation as say 1.0 0.8-1.4 Activated partial thromboplastin time (a PTT) in platelet poor plasma bycoagulation assay - 02/05/20 23:00 Activated partial thromboplastin time (a PTT) in platelet poor plasma bycoagulation assay 39 s 24-35 Serum or plasma C reactive protein measu rement (mass/volume) - 02/05/20 23:00 Serum or plasma C reactive protein measurement (mass/v olume) 3.29 mg/dL 0.00-0.50 Myoglobin, serum - 02/05/20 23:00 Myoglobin, serum 110.1 ng/mL 10.0-92.0 Manual absolute plasma cell count - 03 9 23:00 Blood monocytes/100 leukocytes 8 % NRG Manual blood segmented neutrophils/100 leukocytes 70 % NRG Manual blood lymphocytes/100 leukocytes 17 % NRG Manual eosinophils/100 leukocytes in nose 5 % NRG Blood erythrocyte morphology finding identification NORMAL NRG Serum or plasma lithium measurement (mol es/volume) - 02/05/20 23:00 BNP PT 3562.4 pg/mL <100.0 Influenza virus A and B antigen detectio n - 02/05/20 23:25 FLU RESULT NEGATIVE FOR INFLUENZA A AND B ANTIGENS BY IA NRG Complete urinalysis with reflex to cultu re - 02/05/20 23:55 Urine color determination ORANGE NRG Urine clarity determination CLOUDY NR G Urine pH measurement by test strip 7.5 5-9 Specific gravity of urine by test strip 1.015 1.016-1.022 Urine protein assay by test strip, semi-quantitative 2+ NEGATIVE Urine glucose detection by automated test strip NE GATIVE NEGATIVE Erythrocytes detection in urine sediment by light micr oscopy 3+ NEGATIVE Urine ketones detection by automated test strip NE GATIVE NEGATIVE Urine nitrite detection by test strip NEGATIVE NEGATIVE Urine total bilirubin detection by test strip NEGA TIVE NEGATIVE Urine urobilinogen measurement by automated test strip (mass/volume) 0.2 mg/dL < = 1.0 Urine leukocyte esterase detection by dipstick 2+ NEGATIVE Automated urine sediment erythrocyte cou nt by microscopy (number/high power field) TNTC NRG Automated urine sediment leukocyte count by microscopy (number/high power field) [HPF] NRG Bacteria detection in urine sediment by light microsco py MODERATE NRG Crystals detection in urine sediment by light microsco py NONE NRG Casts detection in urine sediment by light microscopy NONE NRG Mucus detection in urine sediment by light microscopy NEGATIVE NRG Complete urinalysis with reflex to culture YES NRG Bacterial urine culture - 02/05/20 23:55 Bacterial urine culture NG NRG Urine Legionella pneumophila antigen ass ay - 02/05/20 23:55 Urine Legionella pneumophila antigen assay Negativ e NRG Streptococcus pneumoniae antigen detecti on - 02/05/20 23:55 Streptococcus pneumoniae antigen detection Negativ e NRG Blood lactic acid measurement (moles/vol ume) - 02/06/20 01:35 Blood lactic acid measurement (moles/volume) 1.85 mmol/L 0.50-2.00 Bacterial blood culture - 02/06/20 01:35 FREE TEXT EXTERNAL NO SUSCEPTIBILITY PERFORMED. P LEASE NRG QUANTITY OF GROWTH Isolated NRG Bacterial blood culture [id number] NRG FREE TEXT ENTRY 2 NOTIFY MICRO AT EXT 141 IF NEEDE D, NRG FREE TEXT ENTRY 3 WITHIN 48 HRS. SEE COMMENTS NRG Bacterial blood culture - 02/06/20 01:49 Bacterial blood culture NG NRG Methicillin resistant Staphylococcus aur eus (MRSA) screening culture - 02/06/20 04:00 Methicillin resistant Staphylococcus aureus (MRSA) scr eening culture NEG NRG Complete blood count (CBC) with automate d white blood cell (WBC) differential - 02/06/20 04:19 Blood leukocytes automated count (number/volume) 14.9 10*3/uL 4.3-11.0 Blood erythrocytes automated count (number/volume) 3.29 10*6/uL 4.35-5.85 Venous blood hemoglobin measurement (mass/volume) 8.5 g/dL 13.3-17.7 Blood hematocrit (volume fraction) 28 % 40-54 Automated erythrocyte mean corpuscular volume 84 [ foz_us] 80-99 Automated erythrocyte mean corpuscular h emoglobin (mass per erythrocyte) 26 pg 25-34 Automated erythrocyte mean corpuscular h emoglobin concentration measurement (mass/volume) 31 g/dL 32-36 Automated erythrocyte distribution width ratio 14. 7 % 10.0- 14.5 Automated blood platelet count (count/volume) 397 10*3/uL 130-400 Automated blood platelet mean volume measurement 10.9 [foz_us] 7.4-10.4 Automated blood neutrophils/100 leukocytes 68 % 42-75 Automated blood lymphocytes/100 leukocytes 17 % 12-44 Blood monocytes/100 leukocytes 8 % 0-12 Automated blood eosinophils/100 leukocytes 7 % 0-10 Automated blood basophils/100 leukocytes 1 % 0-10 Blood neutrophils automated count (number/volume) 10.2 10*3 1.8-7.8 Blood lymphocytes automated count (number/volume) 2.5 10*3 1.0-4.0 Blood monocytes automated count (number/volume) 1. 2 10*3 0.0-1.0 Automated eosinophil count 1.0 10*3/uL 0 .0-0.3 Automated blood basophil count (count/volume) 0.1 10*3/uL 0.0-0.1 Blood lactic acid measurement (moles/vol ume) - 02/06/20 04:19 Blood lactic acid measurement (moles/volume) 0.98 mmol/L 0.50-2.00 Comprehensive metabolic panel - 02/06/20 04:19 Serum or plasma sodium measurement (moles/volume) 138 mmol/L 135-145 Serum or plasma potassium measurement (moles/volume) 4.8 mmol/L 3.6-5.0 Serum or plasma chloride measurement (moles/volume) 105 mmol/L 98-107 Carbon dioxide 22 mmol/L 21-32 Serum or plasma anion gap determination (moles/volume) 11 mmol/L 5-14 Serum or plasma urea nitrogen measurement (mass/volume ) 59 mg/dL 7-18 Serum or plasma creatinine measurement (mass/volume) 2.48 mg/dL 0.60-1.30 Serum or plasma urea nitrogen/creatinine mass ratio 24 NRG Serum or plasma creatinine measurement w ith calculation of estimated glomerular filtration rate 25 NRG Serum or plasma glucose measurement (mass/volume) 101 mg/dL 70-105 Serum or plasma calcium measurement (mass/volume) 8.3 mg/dL 8.5-10.1 Serum or plasma total bilirubin measurement (mass/volu me) 0.3 mg/dL 0.1-1.0 Serum or plasma alkaline phosphatase patricia surement (enzymatic activity/volume) 134 U/L 40-136 Serum or plasma aspartate aminotransfera se measurement (enzymatic activity/volume) 19 U/L 5-34 Serum or plasma alanine aminotransferase measurement (enzymatic activity/volume) 19 U/L 0-55 Serum or plasma protein measurement (mass/volume) 6.1 g/dL 6.4-8.2 Serum or plasma albumin measurement (mass/volume) 3.3 g/dL 3.2-4.5 CALCIUM CORRECTED 8.9 mg/dL 8.5-10.1 Serum or plasma phosphate measurement (m ass/volume) - 02/06/20 04:19 Serum or plasma phosphate measurement (mass/volume) 4.8 mg/dL 2.3-4.7 Magnesium - 02/06/20 04:19 Magnesium 2.8 mg/dL 1.6-2.4 PROCALCITONIN (PCT) - 02/06/20 04:19 PROCALCITONIN (PCT) 0.09 ng/mL <0.10 Serum or plasma troponin i.cardiac measu rement (mass/volume) - 02/06/20 04:19 Serum or plasma troponin i.cardiac measurement (mass/v olume) 0.104 ng/mL <0.028 Lipid 1996 panel - 02/06/20 04:19 Serum or plasma triglyceride measurement (mass/volume) 78 mg/dL <150 Serum or plasma cholesterol measurement (mass/volume) 108 mg/dL < 200 Serum or plasma cholesterol in HDL measurement (mass/v olume) 25 mg/dL 40-60 Cholesterol in LDL [mass/volume] in serum or plasma by direct assay 73 mg/dL 1-129 Serum or plasma cholesterol in VLDL measurement (mass/ volume) 16 mg/dL 5-40 Complete blood count (CBC) with automate d white blood cell (WBC) differential - 02/07/20 02:36 Blood leukocytes automated count (number/volume) 19.6 10*3/uL 4.3-11.0 Blood erythrocytes automated count (number/volume) 3.51 10*6/uL 4.35-5.85 Venous blood hemoglobin measurement (mass/volume) 9.0 g/dL 13.3-17.7 Blood hematocrit (volume fraction) 29 % 40-54 Automated erythrocyte mean corpuscular volume 84 [ foz_us] 80-99 Automated erythrocyte mean corpuscular h emoglobin (mass per erythrocyte) 26 pg 25-34 Automated erythrocyte mean corpuscular h emoglobin concentration measurement (mass/volume) 31 g/dL 32-36 Automated erythrocyte distribution width ratio 14. 7 % 10.0- 14.5 Automated blood platelet count (count/volume) 445 10*3/uL 130-400 Automated blood platelet mean volume measurement 11.1 [foz_us] 7.4-10.4 Automated blood neutrophils/100 leukocytes 76 % 42-75 Automated blood lymphocytes/100 leukocytes 13 % 12-44 Blood monocytes/100 leukocytes 6 % 0-12 Automated blood eosinophils/100 leukocytes 5 % 0-10 Automated blood basophils/100 leukocytes 0 % 0-10 Blood neutrophils automated count (number/volume) 14.9 10*3 1.8-7.8 Blood lymphocytes automated count (number/volume) 2.6 10*3 1.0-4.0 Blood monocytes automated count (number/volume) 1. 2 10*3 0.0-1.0 Automated eosinophil count 0.9 10*3/uL 0 .0-0.3 Automated blood basophil count (count/volume) 0.1 10*3/uL 0.0-0.1 Manual absolute plasma cell count - 01/27 12/18 02:36 Blood monocytes/100 leukocytes 4 % NR Manual blood segmented neutrophils/100 leukocytes 78 % NR Blood band neutrophils/100 leukocytes 1 % NR Manual blood lymphocytes/100 leukocytes 9 % NR Manual eosinophils/100 leukocytes in nose 8 % NR Blood erythrocyte morphology finding identification NORMAL [facility] Comprehensive metabolic panel - 02/07/20 02:36 Serum or plasma sodium measurement (moles/volume) 140 mmol/L 135-145 Serum or plasma potassium measurement (moles/volume) 5.0 mmol/L 3.6-5.0 Serum or plasma chloride measurement (moles/volume) 105 mmol/L 98-107 Carbon dioxide 18 mmol/L 21-32 Serum or plasma anion gap determination (moles/volume) 17 mmol/L 5-14 Serum or plasma urea nitrogen measurement (mass/volume ) 54 mg/dL 7-18 Serum or plasma creatinine measurement (mass/volume) 2.52 mg/dL 0.60-1.30 Serum or plasma urea nitrogen/creatinine mass ratio 21 NRG Serum or plasma creatinine measurement w ith calculation of estimated glomerular filtration rate 25 NRG Serum or plasma glucose measurement (mass/volume) 137 mg/dL 70-105 Serum or plasma calcium measurement (mass/volume) 8.6 mg/dL 8.5-10.1 Serum or plasma total bilirubin measurement (mass/volu me) 0.4 mg/dL 0.1-1.0 Serum or plasma alkaline phosphatase patricia surement (enzymatic activity/volume) 145 U/L 40-136 Serum or plasma aspartate aminotransfera se measurement (enzymatic activity/volume) 16 U/L 5-34 Serum or plasma alanine aminotransferase measurement (enzymatic activity/volume) 19 U/L 0-55 Serum or plasma protein measurement (mass/volume) 6.5 g/dL 6.4-8.2 Serum or plasma albumin measurement (mass/volume) 3.4 g/dL 3.2-4.5 CALCIUM CORRECTED 9.1 mg/dL 8.5-10.1 Serum or plasma troponin i.cardiac measu rement (mass/volume) - 02/07/20 02:36 Serum or plasma troponin i.cardiac measurement (mass/v olume) 0.091 ng/mL <0.028 Serum or plasma lithium measurement (mol es/volume) - 02/07/20 02:36 BNP PT 3887.5 pg/mL <100.0 Lipase - 02/07/20 02:36 Lipase 44 U/L 8-78 Complete urinalysis with reflex to cultu re - 02/07/20 02:54 Urine color determination RED NRG Urine clarity determination CLOUDY NR G Urine pH measurement by test strip 7.5 5-9 Specific gravity of urine by test strip 1.020 1.016-1.022 Urine protein assay by test strip, semi-quantitative 3+ NEGATIVE Urine glucose detection by automated test strip NE GATIVE NEGATIVE Erythrocytes detection in urine sediment by light micr oscopy 3+ NEGATIVE Urine ketones detection by automated test strip TR DANII NEGATIVE Urine nitrite detection by test strip POSITIVE NEGATIVE Urine total bilirubin detection by test strip NEGA TIVE NEGATIVE Urine urobilinogen measurement by automated test strip (mass/volume) 2.0 mg/dL < = 1.0 Urine leukocyte esterase detection by dipstick 2+ NEGATIVE Automated urine sediment erythrocyte cou nt by microscopy (number/high power field) TNTC NRG Automated urine sediment leukocyte count by microscopy (number/high power field) [HPF] NRG Bacteria detection in urine sediment by light microsco py TRACE NRG Squamous epithelial cells detection in u rine sediment by light microscopy NONE NRG Crystals detection in urine sediment by light microsco py NONE NRG Casts detection in urine sediment by light microscopy NONE NRG Mucus detection in urine sediment by light microscopy SMALL NRG Complete urinalysis with reflex to culture YES NRG Urine drug screening test - 02/07/20 02: 54 Urine phencyclidine detection by screening method NEGATIVE NEGATIVE Urine benzodiazepines detection by screening method NEGATIVE NEGATIVE Urine cocaine detection NEGATIVE NEGATI VE Urine amphetamines detection by screening method N EGATIVE NEGATIVE Urine methamphetamine detection by screening method NEGATIVE NEGATIVE Urine cannabinoids detection by screening method N EGATIVE NEGATIVE Urine opiates detection by screening method NEGATI VE NEGATIVE Urine barbiturates detection NEGATIVE N EGATIVE Screening urine tricyclic antidepressants detection NEGATIVE NEGATIVE Urine methadone detection by screening method NEGA TIVE NEGATIVE Urine oxycodone detection NEGATIVE NEGA TIVE Urine propoxyphene detection NEGATIVE N EGATIVE Bacterial urine culture - 02/07/20 02:54 Bacterial urine culture NG NRG Blood lactic acid measurement (moles/vol ume) - 02/07/20 06:25 Blood lactic acid measurement (moles/volume) 0.90 mmol/L 0.50-2.00 Serum or plasma troponin i.cardiac measu rement (mass/volume) - 02/07/20 08:38 Serum or plasma troponin i.cardiac measurement (mass/v olume) 0.084 ng/mL <0.028 Serum or plasma troponin i.cardiac measu rement (mass/volume) - 02/07/20 14:40 Serum or plasma troponin i.cardiac measurement (mass/v olume) 0.107 ng/mL <0.028 Automated blood complete blood count (he mogram) panel - 02/08/20 12:00 Blood leukocytes automated count (number/volume) 17.7 10*3/uL 4.3-11.0 Blood erythrocytes automated count (number/volume) 3.17 10*6/uL 4.35-5.85 Venous blood hemoglobin measurement (mass/volume) 8.0 g/dL 13.3-17.7 Blood hematocrit (volume fraction) 26 % 40-54 Automated erythrocyte mean corpuscular volume 83 [ foz_us] 80-99 Automated erythrocyte mean corpuscular h emoglobin (mass per erythrocyte) 25 pg 25-34 Automated erythrocyte mean corpuscular h emoglobin concentration measurement (mass/volume) 30 g/dL 32-36 Automated erythrocyte distribution width ratio 14. 8 % 10.0- 14.5 Automated blood platelet count (count/volume) 403 10*3/uL 130-400 Automated blood platelet mean volume measurement 9.6 [foz_us] 7.4-10.4 Whole blood basic metabolic panel - 01/27 01/18 12:00 Serum or plasma sodium measurement (moles/volume) 138 mmol/L 135-145 Serum or plasma potassium measurement (moles/volume) 4.7 mmol/L 3.6-5.0 Serum or plasma chloride measurement (moles/volume) 104 mmol/L 98-107 Carbon dioxide 27 mmol/L 21-32 Serum or plasma anion gap determination (moles/volume) 7 mmol/L 5-14 Serum or plasma urea nitrogen measurement (mass/volume ) 40 mg/dL 7-18 Serum or plasma creatinine measurement (mass/volume) 1.99 mg/dL 0.60-1.30 Serum or plasma urea nitrogen/creatinine mass ratio 20 NRG Serum or plasma creatinine measurement w ith calculation of estimated glomerular filtration rate 32 NRG Serum or plasma glucose measurement (mass/volume) 98 mg/dL 70-105 Serum or plasma calcium measurement (mass/volume) 8.1 mg/dL 8.5-10.1 Encounters ACCT No. Visit Date/Time Discharge Status Pt. Type Provider Facility Loc./Unit Complaint [id number] 01/04/2020 12:57:01 0 23:59:59 DIS Outpatient KYA QUEEN [facility] GIGI [facility] Ortho [id number] 01/22/2020 15:39:31 ACT Inpatient NEETA IBANEZ [facility] GIGI MS Bilateral Pleural Effusion v s Pneumenic [id number] 02/06/2020 02:15:00 020 07:45:00 DIS Inpatient IRMA RAO, DESIRE [place] [facility] ICU SEVERE SEPSIS,UTI,ELEVA PIOTR TROPONIN,ARF,PLEURAL [id number] 02/07/2020 04:00:[address] Inpatient TYRONE RAO, MASON [place] [facility] 4TH UTI,ELEVATED TROPONIN,RENAL FAILURE,HEART FAILURE,
--- OUTSIDE RECORDS SUMMARY | 2020-02-09 01:30 | XMS REPORT | Continuity of Care Document ---
[...] 9 ACUTE KIDNEY FAILURE, UNSPECIFIED 02/06/2020 DESIRE OSLIS MD Ot N39. 0 URINARY TRACT INFECTION, [...] MD, Ot I25.10 ATHSCL HEART DISEASE OF [place] CORONARY 02/08/2020 MASON HANSEN MD, Ot I50.43 [...] OF GROWTH Isolated NRG Bacterial blood culture [id number] NRG FREE TEXT ENTRY 2 NOTIFY MICRO [...] NR Blood erythrocyte morphology finding identification NORMAL [facility] Comprehensive metabolic panel - 02/07/20 [...] Status Pt. Type Provider Facility Loc./Unit Complaint [id number] 01/04/2020 12:57:01 0 23:59:59 DIS Outpatient KYA QUEEN [facility] GIGI [facility] Ortho [id number] 01/22/2020 15:39:31 ACT Inpatient NEETA IBANEZ [facility] GIGI MS Bilateral Pleural Effusion v s Pneumenic [id number] 02/06/2020 02:15:00 020 07:45:00 DIS Inpatient IRMA RAO, DESIRE [place] [facility] ICU SEVERE SEPSIS,UTI,ELEVA PIOTR TROPONIN,ARF,PLEURAL [id number] 02/07/2020 04:00:[address] Inpatient TYRONE RAO, MASON Maced[place] [facility] 4TH UTI,ELEVATED TROPONIN,RENAL FAILURE,HEART FAILURE,
[2020-02-09] MEDS ORDERED: WATER (STERILE) FOR INJECTION 10 ML ONE ×2 (02:43→02:45)
[2020-02-09] MEDS ORDERED: CEFEPIME 1 GM (MAXIPIME) VIAL ONE (02:43)
[2020-02-09] MEDS: cefTRIAXone 1,000 MG/SWFI 10 ML IV PUSH IV SCH ×2 (03:24)
[2020-02-09 04:49] LABS: HEMOGLOBIN 7.7 G/DL (13.3-17.7); MEAN PLATELET VOLUME 10.7 FL (7.4-10.4); RED CELL DISTRIBUTION WIDTH 14.8 % (10.0-14.5); WHITE BLOOD COUNT 17.9 10^3/uL (4.3-11.0)
[2020-02-09] MEDS: CYCLOBENZAPRINE 10 MG (FLEXERIL) TAB PO PRN (04:50)
[2020-02-09 05:05] LABS: CREATININE SERUM 1.9 MG/DL (0.60-1.30); POTASSIUM 4.8 MMOL/L (3.6-5.0)
[2020-02-09] MEDS: ACETAMINOPHEN 325 MG TABLET PO PRN (07:50)
--- NOTE | 2020-02-09 08:26 | Progress Note - Urology ---
Progress Note-Urology Progress Notes/Assess & Plan Progress/Assessment & Plan URINE CLEARING. DC CARCAMO AND [address] SHOWED ONLY BILATERAL RENAL CYSTS. NEEDS CYSTOSCOPY LATER Final Diagnosis GROSS HEMATURIA KYA NOGUEIRA MD Feb 09, 2020 08:26
[2020-02-09] MEDS ORDERED: LIDOCAINE JELLY 2% 6 ML SYRINGE TOP ONE (08:45)
[2020-02-09] MEDS: ASPIRIN 81 MG CHEW (CHILDREN'S ASA) PO SCH (08:49)
[2020-02-09] MEDS: meTOproloL SUCCINATE 50 MG (TOPROL XL) TAB PO SCH (08:49)
--- NOTE | 2020-02-09 09:43 | Occ Therapy Progress Note ---
Therapy Progress Note Pt laying in bed sleeping, easily awoken. OT encouraged pt to participate in skilled therapy at this time, he refused stating he has been up all night and he just got to sleep. OT will attempt again this afternoon. 1, visit [id number] MAHAD BRAGA OT Feb 09, 2020 09:43
--- NOTE | 2020-02-09 10:00 | Physical Therapy Progress Note ---
Therapy Progress Note Patient adamantly declined PT on this date stating, "I just don't want to do anything today." PT attempted to educate patient on importance of increasing activity to improve functional strength and mobility, however, patient continued to decline. 1 ref ([phone]) JING PEDERSON PT Feb 09, 2020 10:00
[2020-02-09] MEDS: RT-ALBUTEROL/IPRATROPIUM 3 ML (DUONEB) VIAL INH SCH ×2 (11:42→18:27)
--- NOTE | 2020-02-09 12:17 | Progress Note - Hospitalist ---
Subjective HPI/CC On Admission Date Seen by Provider: Feb 09, 2020 Time Seen by Provider: 12:15 84-year-old male with past medical history of TURP 3 months ago presented to the emergency room due to inability to urinate. He was actually admitted yesterday due to severe sepsis from UTI but left AMA prior to being seen. He returned this evening due to worsening issues with urination and hematuria when he was able to urinate. A catheter was placed in the emergency room. He was found to have an elevated creatinine and he is unsure if this is normal for him. BNP and troponin were also elevated. He has no new complaints at this time. Subjective/Events-last exam Pt reports feeling much better today. Urine clearing up. Catheter removed today. No complaints. Focused Exam Lactate Level 02/07/20 06:25: Lactic Acid Level 0.90 Objective Exam Vital Signs Vital Signs Date Time Temp Pulse Resp B/P (MAP) Pulse Ox O2 Delivery O2 Flow Rate FiO2 02/09/20 11:42 94 Nasal Cannula 1.00 02/09/20 08:00 37.0 66 20 113/56 (75) Capillary Refill : Less Than 3 Seconds General Appearance: No Apparent Distress, WD/WN Respiratory: Lungs Clear, No Respiratory Distress Cardiovascular: Regular Rate, Rhythm, No Murmur Extremity: No Calf Tenderness, No Pedal Edema Neurologic/Psychiatric: Alert, Oriented x3 Results/Procedures Lab Laboratory Tests 02/09/20 04:23 Patient resulted labs reviewed. Assessment/Plan Assessment and Plan Assess & Plan/Chief Complaint UTI Urinary Retention Hematuria Catheter in place Continue Rocephin Previous culture with no growth Urology Consulted, appreciate recs Catheter removed, monitor urine output Elevated Troponin CAD Elevated BNP Cardiology consulted, appreciate works Echo shows EF of 40%, grade 2 diastolic dysfunction medical management per Dr Gillespie due to atif hematuria Metoprolol JUANCARLOS on CKD Creatinine improved to 1.90 Likely component of CKD Trend DVT ppx: Unable to wear SCDs due to pain and Lovenox contraindicated due to hematuria. Diagnosis/Problems Diagnosis/Problems (1) Elevated troponin I level Status: Acute (2) Acute urinary retention Status: Acute (3) Renal failure Status: Acute Qualifiers: Renal failure chronicity: unspecified chronicity Qualified Codes: N19 - Unspecified kidney failure (4) Urinary tract infection Status: Acute Qualifiers: Urinary tract infection type: acute cystitis Hematuria presence: with hematuria Qualified Codes: N30.01 - Acute cystitis with hematuria Clinical Quality Measures DVT/VTE Risk/Contraindication: Risk Factor Score Per Nursin RFS Level Per Nursing on Admit: 4+=Very High KIKE KAN MD Feb 09, 2020 12:17
--- NOTE | 2020-02-09 12:19 | D/C HH Face to Face Order ---
D/C Face to Face Orders Instructions for Patient Via [facility], Patient Instructions/FollowUp: Please continue to take her medications as written. Please follow-up with your primary care provider in the next week. Please follow up with Dr. Saleem in 2 weeks. Physician to follow Patient: PCP Discharge Diet for Home: Cardiac Diet Patient Data-Allergies,Ht & Wt Patient Allergies: Uncoded Allergies: pneumonia vaccine (Adverse Reaction, Unknown, 02/06/20) Home Health Need/Face to Face Date of Face to Face: Feb 09, 2020 Clinical Findings: Generalized weakness and fatigue I have seen Pt [id number]: Yes Discharged To: Home Diagnosis/Conditions: UTI, Urinary Retention, CAD Patient is Homebound due to: Muscle weakness Homebound Status Due to the above stated illness, injury or surgical procedure (medical condition or diagnosis) and associated clinical findings, the patient is homebound because of his/her inability to leave home except with aid of a supportive device and/or person AND leaving the home requires a considerable and taxing effort or is medically contraindicated. Pt req the following assistanc: Aid of another person, [facility] Home Health Nursing Orders Home Health Services Order: Nursing Services, [place] Inspector-Evaluate & Tr eat, Physical Therapy-Evaluate & Treat Home Health Infusion Therapy Line Start Date: Feb 07, 2020 Therapy Orders Therapy Orders: OT (must have SN or PT order), Physical Therapy Therapy Specific Orders: Eval assistive deivces, Teach enviro modifications/safety, Gait training, Increase strength/endurance Certify Stmt I certify that this patient is under my care and that I, a nurse practitioner or a physician; a lead recreation assistant working with me, had a face to face encounter that - meets the physician face to face encounter requirements with this patient as dated. KIKE KAN MD Feb 09, 2020 12:19
--- NOTE | 2020-02-09 13:13 | Cardiology Progress Note ---
Subjective Date Seen by Provider: Feb 09, 2020 Time Seen by Provider: 13:08 Subjective/Events-last exam Patient is sitting in bed. Feeling better. No new complaint. No chest pain. Review of Systems General: No Chills, No Night Sweats; Fatigue, Malaise; No Appetite, No Other HEENT: No Head Aches, No Visual Changes, No Eye Pain, No Ear Pain, No Dysphasia, No Sinus Congestion, No Post Nasal Drip, No Sore Throat, No Other Pulmonary: No Dyspnea, No Cough, No Pleuritic Chest Pain, No Other Cardiovascular: No: Chest Pain, Palpitations, Orthopnea, Paroxysmal Noc. Dyspnea, Edema, Lt Headedness, Other Focused Exam Lactate Level 02/07/20 06:25: Lactic Acid Level 0.90 Objective-Cardiology Exam Last Set of Vital Signs Vital Signs 02/09/20 02/09/20 11:42 12:00 Temp 36.9 Pulse 54 Resp 20 B/P (MAP) 81/36 (51) Pulse Ox 98 O2 Delivery Room Air O2 Flow Rate 1.00 Capillary Refill : Less Than 3 Seconds I&O Intake and Output 02/09/20 00:00 Intake Total 1740 ml Output Total 1450 ml Balance 290 ml Intake Oral 1740 ml Output Urine Total 1450 ml General: Alert, Oriented X3, Cooperative HEENT: Atraumatic, PERRLA Neck: Supple, No JVD, No Thyromegaly Lungs: Other (decreased breath sounds bibasilarly) Heart: Regular Rate, Normal S1, Normal S2, No Murmurs Abdomen: Normal Bowel Sounds, Soft Extremities: No Edema Skin: No Rashes, No Significant Lesion Neuro: Normal Speech Psych/Mental Status: Mental Status NL, Mood NL Results Lab Laboratory Tests 02/09/20 04:23 A/P-Cardiology Admission Diagnosis Acute renal failure Hematuria Non-ST elevation myocardial infarctions Hypertension Assessment/Plan Acute renal failure, receiving IV fluids, improving slowly. Continue to monitor renal function Hematuria, oliguria, recent TURP, monitored by urology Anemia, worsening H&H, transfuse 1 unit of packed RBCs and monitor H&H. Non-ST elevation myocardial infarction, coronary artery disease, denied any active chest pain, conservative management is recommended. Following with Dr. Gillespie Diabetes mellitus, followed and managed by primary care physician Hypertension, restart medication monitor blood pressure Hyperlipidemia, monitor lipids. Clinical Quality Measures DVT/VTE Risk/Contraindication: Risk Factor Score Per Nursin RFS Level Per Nursing on Admit: 4+=Very High VALERIA COLEMAN MD Feb 09, 2020 1:13 pm
[2020-02-09] MEDS ORDERED: NS IV 500 ML 500 ML IV SCH (13:15)
--- NOTE | 2020-02-09 13:38 | NUR ---
CM/SS follow up. Plan: The patient will return home with his son and sons girlfriend with home health. Home Health: The patient was provided with a patient preference form and chose [facility]. CM/SS called and spoke with Chun from the agency. Medical records and orders were faxed. DME: The patient verbalized that he wanted to use [facility] if he is sent home with oxygen. Awaiting home study and qualifiers.
[2020-02-09] MEDS: PANTOPRAZOLE 40 MG (PROTONIX) TAB PO SCH (14:14)
--- NOTE | 2020-02-09 14:57 | Occupational Ther Daily Note ---
OT Current Status-Daily Note Subjective Pt seated upright on EOB, he was able to reposition himself without assistance stating he has a sore on his bottom. He did not verbalize pain rating. Mental Status/Objective Patient Orientation: Normal For Age ADL-Treatment Therapy Code Descriptions/Definitions Functional [place] Measure: 0=Not Assessed/NA 4=Minimal Assistance 1=Total Assistance 5=Supervision or Setup 2=Maximal Assistance 6=Modified [place] 3=Moderate Assistance 7=Complete IndependenceSCALE: Activities may be completed with or without assistive devices. 0-Aplpgibfuv-ifjdxcw completes the activity by him/herself with no assistance from a helper. 5-Set-up or Clean-up Assistance-helper sets up or cleans up; patient completes activity. [place] assists only prior to or following the activity. 4-Supervision or Touching Assistance-helper provides verbal cues and/or touching/steadying and/or contact guard assistance as patient completes activity. Assistance may be provided throughout the activity or intermittently. 3-Partial/Moderate Assistance-helper does LESS THAN HALF the effort. [place] lifts, holds or supports trunk or limbs, but provides less than half the effort. 2-Substantial/Maximal Assistance-helper does MORE THAN HALF the effort. [place] lifts or holds trunk or limbs and provides more than half the effort. 9-Tqhkjfnlo-lgoegx does ALL the effort. Patient does none of the effort to complete the activity. Or, the assistance of 2 or more helpers is required for the patient to complete the activity. If activity was not attempted, code reason: 7-Patient Refused. 9-Not Applicable-not attempted and the patient did not perform the activity before the current illness, exacerbation or injury. 10-Not Attempted due to Environmental Limitations-(lack of equipment, weather restraints, etc.). 88-Not Attempted due to Medical Conditions or Safety Concerns. Other Treatment Pt seated EOB, agreeable to UE exercises with mod encouragement. Pt completed x10 reps each of the following in order to increase BUE strength and functional endurance: shoulder flexion, elbow flexion/extension, wrist flexion/extension. Pt states he feels fatigued, required rest breaks between exercises. Post OT tx, pt seated upright EOB, call light in reach and all needs met. Education OT Patient Education: Correct positioning, Energy conservation, Exercise program, Progress toward Goal/Update tx plan, Purpose of tx/functional activities Teaching Recipient: Patient Teaching Methods: Discussion Response to Teaching: Verbalize Understanding, Reinforcement Needed OT Sample Sawyer Goals Fpc Goals Time Frame: Feb 16, 2020 Oral Hygiene (QC): 6 Toileting Hygiene (QC): 6 Shower/Bathe Self (QC): 4 Upper Body Dressing (QC): 5 Lower Body Dressing (QC): 4 On/Off Footwear (QC): 4 1=Demonstrate adherence to instructed precautions during ADL tasks. 2=Patient will verbalize/demonstrate understanding of assistive devices/modifications for ADL. 3=Patient will improve strength/tolerance for activity to enable patient to perform ADL's. OT Education/Plan Problem List/Assessment Assessment: Decreased Activ Tolerance, Decreased UE Strength, Impaired I ADL's, Impaired Self-Care Skills Discharge Recommendations Plan/Recommendations: Continue POC Treatment Plan/Plan of Care Patient would benefit from OT for education, treatment and training to promote independence in ADL's, mobility, safety and/or upper extremity function for ADL's. Plan of Care: ADL Retraining, Functional Mobility, UE Funct Exercise/Act Treatment Duration: Feb 16, 2020 Frequency: 5 times per week Estimated Hrs Per Day: .25 hour per day Agreement: Yes Rehab Potential: Fair Time/GCodes Start Time: 13:54 Stop Time: 14:02 Total Time Billed (hr/min): 8 Billed Treatment Time 1, EX MAHAD BRAGA OT Feb 09, 2020 14:57
--- NOTE | 2020-02-09 15:34 | NUR ---
pt was only able to walk about 75 ft in about 3 min on room air. The pt stopped the test complaining of fatigue and "rojelio horses" in his thighs and legs. After returning him to his bed he rovered in about 2-4 minutes with sats returning to 98% on room air. pt was on room air the entire time.
--- NOTE | 2020-02-09 16:39 | NUR ---
CM/SS follow up. [facility] contacted this SS and stated the patient does not have a PCP listed. CM/SS went and spoke with the patient. He states that he has not seen any doctors in 4-5 years; he also states [facility] [place]. CM/SS spoke to the Hospitalist who looked in patients chart and found that he had been seen at [facility] ( ) by Nurse Practitioner Brendan. CM/SS contacted to office to see if they will follow home health orders. They report the patient was seen there once, but called back and told them he didn't want to ever come back there. Awaiting a call back from [facility] to accept or decline. Will contact hospitalist to inform them of the decision.
[2020-02-10] MEDS ORDERED: cefTRIAXone 1,000 MG IV (ROCEPHIN) VIAL ONE (02:12)
[2020-02-10] MEDS ORDERED: WATER (STERILE) FOR INJECTION 10 ML ONE (02:12)
[2020-02-10] MEDS: cefTRIAXone 1,000 MG/SWFI 10 ML IV PUSH IV SCH ×2 (02:21)
[2020-02-10 04:55] VITALS: BP_SYST 132; BP_SYST 94; BP_DIAS 50; BP_DIAS 70
[2020-02-10 05:02] LABS: HEMOGLOBIN 9.1 G/DL (13.3-17.7); MEAN PLATELET VOLUME 11.1 FL (7.4-10.4); RED CELL DISTRIBUTION WIDTH 14.8 % (10.0-14.5)
[2020-02-10 05:20] LABS: ALBUMIN 3.2 GM/DL (3.2-4.5); BILIRUBIN,TOTAL 0.4 MG/DL (0.1-1.0); CALCIUM 8.2 MG/DL (8.5-10.1); CREATININE SERUM 1.75 MG/DL (0.60-1.30); MAGNESIUM 2.4 MG/DL (1.6-2.4); POTASSIUM 4.6 MMOL/L (3.6-5.0); TOTAL PROTEIN 6.1 GM/DL (6.4-8.2)
[2020-02-10 08:00] VITALS: BP 102/63
[2020-02-10] MEDS: RT-ALBUTEROL/IPRATROPIUM 3 ML (DUONEB) VIAL INH SCH (08:26)
--- NOTE | 2020-02-10 08:26 | Cardiology Progress Note ---
Subjective Date Seen by Provider: Feb 10, 2020 Time Seen by Provider: 08:25 Subjective/Events-last exam Patient is laying down in bed, complaining of constipation. No chest pain Still having hematuria Review of Systems General: No Chills, No Night Sweats, No Fatigue, No Malaise, No Appetite, No Other HEENT: No Head Aches, No Visual Changes, No Eye Pain, No Ear Pain, No Dysphasia, No Sinus Congestion, No Post Nasal Drip, No Sore Throat, No Other Pulmonary: No Dyspnea, No Cough, No Pleuritic Chest Pain, No Other Cardiovascular: No: Chest Pain, Palpitations, Orthopnea, Paroxysmal Noc. Dyspnea, Edema, Lt Headedness, Other Objective-Cardiology Exam Last Set of Vital Signs Vital Signs 02/10/20 02/10/20 04:55 07:00 Temp 37.2 Pulse 60 Resp 20 B/P (MAP) 94/50 (65) Pulse Ox 94 O2 Delivery Room Air Capillary Refill : Less Than 3 Seconds I&O Intake and Output 02/10/20 00:00 Intake Total 1790 ml Output Total 875 ml Balance 915 ml Intake Oral 1400 ml IV Total 120 ml Other 270 ml Output Urine Total 875 ml General: Alert, Oriented X3, Cooperative HEENT: Atraumatic, PERRLA Neck: Supple, No JVD, No Thyromegaly Lungs: Other (decreased breath sounds bibasilarly) Heart: Regular Rate, Normal S1, Normal S2, No Murmurs Abdomen: Normal Bowel Sounds, Soft Extremities: No Edema Skin: No Rashes, No Significant Lesion Neuro: Normal Speech Psych/Mental Status: Mental Status NL, Mood NL Results Lab Laboratory Tests 02/10/20 04:28 A/P-Cardiology Admission Diagnosis Acute renal failure Hematuria Non-ST elevation myocardial infarctions Hypertension Assessment/Plan Acute renal failure, receiving IV fluids, improving slowly. Continue to monitor renal function Hematuria, oliguria, recent TURP, monitored by urology Anemia, received one unit packed RBCs yesterday, still having active hematuria, I'll stop aspirin. Non-ST elevation myocardial infarction, coronary artery disease, denied any active chest pain, conservative management is recommended. Following with Dr. Gillespie Diabetes mellitus, followed and managed by primary care physician Hypertension, monitor blood pressure Hyperlipidemia, monitor lipids. Clinical Quality Measures DVT/VTE Risk/Contraindication: Risk Factor Score Per Nursin RFS Level Per Nursing on Admit: 4+=Very High VALERIA COLEMAN MD Feb 10, 2020 08:26
[2020-02-10] MEDS: meTOproloL SUCCINATE 50 MG (TOPROL XL) TAB PO SCH (08:41)
[2020-02-10] MEDS: PANTOPRAZOLE 40 MG (PROTONIX) TAB PO SCH (08:41)
[2020-02-10] MEDS ORDERED: ASPIRIN E.C. 81 MG (ECOTRIN) TAB PO SCH (09:00)
--- NOTE | 2020-02-10 11:49 | Progress Note - Hospitalist ---
Subjective HPI/CC On Admission Date Seen by Provider: Feb 10, 2020 Time Seen by Provider: 11:45 84-year-old male with past medical history of TURP 3 months ago presented to the emergency room due to inability to urinate. He was actually admitted yesterday due to severe sepsis from UTI but left AMA prior to being seen. He returned this evening due to worsening issues with urination and hematuria when he was able to urinate. A catheter was placed in the emergency room. He was found to have an elevated creatinine and he is unsure if this is normal for him. BNP and troponin were also elevated. He has no new complaints at this time. Subjective/Events-last exam Reports feeling well. Urine is still dark red. He states it has never been clear since his surgery 3 months ago. Objective Exam Vital Signs Vital Signs Date Time Temp Pulse Resp B/P (MAP) Pulse Ox O2 Delivery O2 Flow Rate FiO2 02/10/20 08:27 Room Air 02/10/20 08:00 37.4 61 19 102/63 (76) 97 02/09/20 16:17 1.00 Capillary Refill : Less Than 3 Seconds General Appearance: No Apparent Distress, Chronically ill Respiratory: Lungs Clear, No Respiratory Distress Cardiovascular: Regular Rate, Rhythm, No Murmur Gastrointestinal: Normal Bowel Sounds, Non Tender, Soft Neurologic/Psychiatric: Alert, Oriented x3 Results/Procedures Lab Laboratory Tests 02/10/20 04:28 Patient resulted labs reviewed. Assessment/Plan Assessment and Plan Assess & Plan/Chief Complaint UTI Urinary Retention Hematuria Anemia Catheter in place Continue Rocephin Urology Consulted, appreciate recs Will need cystoscopy likely as an outpatient transfused 1 unit prbcs yesterday, hemoglobin 9.1 Elevated Troponin CAD Elevated BNP Cardiology consulted, appreciate works Echo shows EF of 40%, grade 2 diastolic dysfunction medical management per Dr Gillespie due to atif hematuria Metoprolol JUANCARLOS on CKD Creatinine improved to 1.75 Likely component of CKD Trend Debility PT/OT IRF consult Will at least need HH at discharge if not IRF or SNF DVT ppx: Unable to wear SCDs due to pain and Lovenox contraindicated due to hematuria. Diagnosis/Problems Diagnosis/Problems (1) Elevated troponin I level Status: Acute (2) Acute urinary retention Status: Acute (3) Renal failure Status: Acute Qualifiers: Renal failure chronicity: unspecified chronicity Qualified Codes: N19 - Unspecified kidney failure (4) Urinary tract infection Status: Acute Qualifiers: Urinary tract infection type: acute cystitis Hematuria presence: with hematuria Qualified Codes: N30.01 - Acute cystitis with hematuria Clinical Quality Measures DVT/VTE Risk/Contraindication: Risk Factor Score Per Nursin RFS Level Per Nursing on Admit: 4+=Very High KIKE KAN MD Feb 10, 2020 11:49
[2020-02-10 12:00] VITALS: BP_SYST 127; BP_SYST 173; BP_DIAS 66; BP_DIAS 71
[2020-02-10 15:54] VITALS: BP 120/66
[2020-02-10 19:39] VITALS: BP 109/55
[2020-02-10] MEDS: MILK OF MAGNESIA 400 MG/5 ML 30 ML UDC PO PRN (20:31)
[2020-02-11] VITALS (7 sets, daily range): BP systolic 97–132; BP diastolic 50–69
[2020-02-11] MEDS ORDERED: WATER (STERILE) FOR INJECTION 10 ML ONE (03:31)
[2020-02-11] MEDS ORDERED: cefTRIAXone 1,000 MG IV (ROCEPHIN) VIAL ONE (03:31)
[2020-02-11] MEDS: cefTRIAXone 1,000 MG/SWFI 10 ML IV PUSH IV SCH ×2 (03:50)
[2020-02-11] MEDS: meTOproloL SUCCINATE 50 MG (TOPROL XL) TAB PO SCH (08:21)
[2020-02-11] MEDS: PANTOPRAZOLE 40 MG (PROTONIX) TAB PO SCH (08:21)
[2020-02-11] MEDS: SENNA W/DOCUSATE (SENOKOT S) TABLET PO PRN (08:23)
[2020-02-11] MEDS: MILK OF MAGNESIA 400 MG/5 ML 30 ML UDC PO PRN (08:23)
--- NOTE | 2020-02-11 08:25 | NUR ---
SENOKOT AND MILK OF MAG PO FOR CONSTIPATION.
--- NOTE | 2020-02-11 10:39 | Cardiology Progress Note ---
Subjective Date Seen by Provider: Feb 11, 2020 Time Seen by Provider: 10:38 Subjective/Events-last exam Patient is laying down in bed, feeling better today. No new complaint Review of Systems General: No Chills, No Night Sweats, No Fatigue, No Malaise, No Appetite, No Other HEENT: No Head Aches, No Visual Changes, No Eye Pain, No Ear Pain, No Dysphasia, No Sinus Congestion, No Post Nasal Drip, No Sore Throat, No Other Pulmonary: No Dyspnea, No Cough, No Pleuritic Chest Pain, No Other Cardiovascular: No: Chest Pain, Palpitations, Orthopnea, Paroxysmal Noc. Dyspnea, Edema, Lt Headedness, Other Objective-Cardiology Exam Last Set of Vital Signs Vital Signs 02/11/20 02/11/20 02/11/20 08:00 08:14 09:00 Temp 36.5 Pulse 55 Resp 20 B/P (MAP) 132/61 (84) Pulse Ox 90 O2 Delivery Room Air Capillary Refill : Less Than 3 SecondsLess Than 3 Seconds I&O Intake and Output 02/11/20 00:00 Intake Total 1370 ml Output Total 1100 ml Balance 270 ml Intake Oral 1370 ml Output Urine Total 1100 ml General: Alert, Oriented X3, Cooperative HEENT: Atraumatic, PERRLA Neck: Supple, No JVD, No Thyromegaly Lungs: Other (decreased breath sounds bibasilarly) Heart: Regular Rate, Normal S1, Normal S2, No Murmurs Abdomen: Normal Bowel Sounds, Soft Extremities: No Edema Skin: No Rashes, No Significant Lesion Neuro: Normal Speech Psych/Mental Status: Mental Status NL, Mood NL A/P-Cardiology Admission Diagnosis Acute renal failure Hematuria Non-ST elevation myocardial infarctions Hypertension Assessment/Plan Status post acute renal failure, improving slowly. Managed by primary care team. Hematuria, recent TURP, monitored by primary care team. Anemia, received one unit packed RBCs, better at this time. Continue to monitor Non-ST elevation myocardial infarction, coronary artery disease, denied any active chest pain, conservative management is recommended. Following with Dr. Gillespie Diabetes mellitus, followed and managed by primary care physician Hypertension, monitor blood pressure Hyperlipidemia, monitor lipids. Clinical Quality Measures DVT/VTE Risk/Contraindication: Risk Factor Score Per Nursin RFS Level Per Nursing on Admit: 4+=Very High VALEIRA COLEMAN MD Feb 11, 2020 10:39
[2020-02-11 10:57] LABS: BASOPHILS # (AUTO) 0.1 10^3/uL (0.0-0.1); BASOPHILS % (AUTO) 1 % (0-10); EOSINOPHILS % (AUTO) 9 % (0-10); HEMATOCRIT 30 % (40-54); HEMOGLOBIN 9.1 G/DL (13.3-17.7); LYMPHOCYTES # (AUTO) 1.6 X 10^3 (1.0-4.0); LYMPHOCYTES % (AUTO) 14 % (12-44); MEAN CORPUSCULAR HEMOGLOBIN 26 PG (25-34); MEAN CORPUSCULAR HGB CONC 31 G/DL (32-36); MEAN CORPUSCULAR VOLUME 84 FL (80-99); MEAN PLATELET VOLUME 10.7 FL (7.4-10.4); MONOCYTES # (AUTO) 1.1 X 10^3 (0.0-1.0); MONOCYTES % (AUTO) 10 % (0-12); NEUTROPHILS # (AUTO) 7.6 X 10^3 (1.8-7.8); NEUTROPHILS % (AUTO) 67 % (42-75); PLATELET COUNT 391 10^3/uL (130-400); RED CELL DISTRIBUTION WIDTH 15.2 % (10.0-14.5); WHITE BLOOD COUNT 11.3 10^3/uL (4.3-11.0)
[2020-02-11 11:11] LABS: CALCIUM 7.8 MG/DL (8.5-10.1); CREATININE SERUM 1.76 MG/DL (0.60-1.30); POTASSIUM 4.4 MMOL/L (3.6-5.0)
[2020-02-11] MEDS: RT-ALBUTEROL/IPRATROPIUM 3 ML (DUONEB) VIAL INH SCH (19:00)
[2020-02-11] MEDS: ACETAMINOPHEN 325 MG TABLET PO PRN (23:23)
[2020-02-12 00:04] VITALS: BP 116/43
[2020-02-12] MEDS ORDERED: WATER (STERILE) FOR INJECTION 10 ML ONE (02:38)
[2020-02-12] MEDS ORDERED: cefTRIAXone 1,000 MG IV (ROCEPHIN) VIAL ONE (02:38)
[2020-02-12] MEDS: cefTRIAXone 1,000 MG/SWFI 10 ML IV PUSH IV SCH ×2 (02:53)
[2020-02-12 04:00] VITALS: BP 134/61
[2020-02-12 05:09] VITALS: BP 134/61
[2020-02-12 05:29] LABS: HEMOGLOBIN 8.9 G/DL (13.3-17.7); MEAN PLATELET VOLUME 11.2 FL (7.4-10.4); WHITE BLOOD COUNT 10.1 10^3/uL (4.3-11.0)
[2020-02-12 05:38] LABS: CALCIUM 7.6 MG/DL (8.5-10.1); CREATININE SERUM 1.82 MG/DL (0.60-1.30); POTASSIUM 4.6 MMOL/L (3.6-5.0)
[2020-02-12 08:00] VITALS: BP 154/54
[2020-02-12] MEDS: PANTOPRAZOLE 40 MG (PROTONIX) TAB PO SCH (08:05)
[2020-02-12] MEDS: meTOproloL SUCCINATE 50 MG (TOPROL XL) TAB PO SCH (08:05)
--- NOTE | 2020-02-12 09:12 | Cardiology Progress Note ---
Subjective Date Seen by Provider: Feb 12, 2020 Time Seen by Provider: 09:11 Subjective/Events-last exam Patient is sitting in a chair, feeling better. Had mild left-sided chest pain, appear to be referred to supple. Better at this time. Review of Systems General: No Chills, No Night Sweats, No Fatigue, No Malaise, No Appetite, No Other HEENT: No Head Aches, No Visual Changes, No Eye Pain, No Ear Pain, No Dysphasia, No Sinus Congestion, No Post Nasal Drip, No Sore Throat, No Other Pulmonary: Dyspnea; No Cough, No Pleuritic Chest Pain, No Other Cardiovascular: No: Chest Pain, Palpitations, Orthopnea, Paroxysmal Noc. Dyspnea, Edema, Lt Headedness, Other Objective-Cardiology Exam Last Set of Vital Signs Vital Signs 02/12/20 02/12/20 08:00 09:00 Temp 37.0 Pulse 57 Resp 20 B/P (MAP) 154/54 (87) Pulse Ox 100 O2 Delivery Room Air Capillary Refill : Less Than 3 SecondsLess Than 3 Seconds I&O Intake and Output 02/12/20 00:00 Intake Total 3130 ml Output Total 625 ml Balance 2505 ml Intake Oral 3120 ml IV Total 10 ml Output Urine Total 625 ml # Voids 1 # Bowel Movements 1 General: Alert, Oriented X3, Cooperative HEENT: Atraumatic, PERRLA Neck: Supple, No JVD, No Thyromegaly Lungs: Other (decreased breath sounds bibasilarly) Heart: Regular Rate, Normal S1, Normal S2, No Murmurs Abdomen: Normal Bowel Sounds, Soft Extremities: No Clubbing, No Cyanosis, No Edema Skin: No Rashes, No Significant Lesion Neuro: Normal Speech Psych/Mental Status: Mental Status NL, Mood NL Results Lab Laboratory Tests 02/11/20 10:31 02/12/20 04:20 A/P-Cardiology Admission Diagnosis Acute renal failure Hematuria Non-ST elevation myocardial infarctions Hypertension Assessment/Plan Status post acute renal failure, improving slowly. Managed by primary care team. Hematuria, recent TURP, monitored by primary care team. Anemia, received one unit packed RBCs, better at this time. Continue to monitor Non-ST elevation myocardial infarction, coronary artery disease, denied any active chest pain, conservative management is recommended. Following with Dr. Gillespie, no changes are recommended Diabetes mellitus, followed and managed by primary care physician Hypertension, monitor blood pressure Hyperlipidemia, monitor lipids. Clinical Quality Measures DVT/VTE Risk/Contraindication: Risk Factor Score Per Nursin RFS Level Per Nursing on Admit: 4+=Very High VALERIA COLEMAN MD Feb 12, 2020 09:12
--- NOTE | 2020-02-12 10:03 | Occupational Ther Daily Note ---
OT Current Status-Daily Note Subjective Pt seated upright in chair with x1 family member present. Pt reports he is hoping to be able to discharge soon. ADL-Treatment Therapy Code Descriptions/Definitions Functional [place] Measure: 0=Not Assessed/NA 4=Minimal Assistance 1=Total Assistance 5=Supervision or Setup 2=Maximal Assistance 6=Modified [place] 3=Moderate Assistance 7=Complete IndependenceSCALE: Activities may be completed with or without assistive devices. 3-Mpmouabfnz-xgalyob completes the activity by him/herself with no assistance from a helper. 5-Set-up or Clean-up Assistance-helper sets up or cleans up; patient completes activity. [place] assists only prior to or following the activity. 4-Supervision or Touching Assistance-helper provides verbal cues and/or touching/steadying and/or contact guard assistance as patient completes activity. Assistance may be provided throughout the activity or intermittently. 3-Partial/Moderate Assistance-helper does LESS THAN HALF the effort. [place] lifts, holds or supports trunk or limbs, but provides less than half the effort. 2-Substantial/Maximal Assistance-helper does MORE THAN HALF the effort. [place] lifts or holds trunk or limbs and provides more than half the effort. 6-[place]-ogznmr does ALL the effort. Patient does none of the effort to complete the activity. Or, the assistance of 2 or more helpers is required for the patient to complete the activity. If activity was not attempted, code reason: 7-Patient Refused. 9-Not Applicable-not attempted and the patient did not perform the activity before the current illness, exacerbation or injury. 10-Not Attempted due to Environmental Limitations-(lack of equipment, weather restraints, etc.). 88-Not Attempted due to Medical Conditions or Safety Concerns. Other Treatment Pt pleasantly declined ADLs this tx, stating he wants to be discharged soon, he is hoping to be able to discharge today. He agreed to BUE exercises in order to increase UE strength and functional endurance. He completed x5 reps shoulder flexion, x15 wrist flexion/extension, and x15 elbow flexion/extension. Pt re quired rest breaks between each exercise. Post OT session, pt seated upright in recliner, call light in reach and all needs met. Education OT Patient Education: Correct positioning, Energy conservation, Exercise program, Progress toward Goal/Update tx plan, Purpose of tx/functional activities Teaching Recipient: Patient Teaching Methods: Discussion Response to Teaching: Verbalize Understanding OT Air Conditioning Mechanic Industrial Goals [facility] Goals Time Frame: Feb 16, 2020 Oral Hygiene (QC): 6 Toileting Hygiene (QC): 6 Shower/Bathe Self (QC): 4 Upper Body Dressing (QC): 5 Lower Body Dressing (QC): 4 On/Off Footwear (QC): 4 1=Demonstrate adherence to instructed precautions during ADL tasks. 2=Patient will verbalize/demonstrate understanding of assistive tremayne herminia/modifications for ADL. 3=Patient will improve strength/tolerance for activity to enable patient to perform ADL's. OT Education/Plan Problem List/Assessment Assessment: Decreased Activ Tolerance, Decreased UE Strength, Impaired I ADL's, Impaired Self-Care Skills Discharge Recommendations Plan/Recommendations: Continue POC Treatment Plan/Plan of Care Patient would benefit from OT for education, treatment and training to promote independence in ADL's, mobility, safety and/or upper extremity function for ADL's. Plan of Care: ADL Retraining, Functional Mobility, UE Funct Exercise/Act Treatment Duration: Feb 16, 2020 Frequency: 5 times per week Estimated Hrs Per Day: .25 hour per day Agreement: Yes Rehab Potential: Fair Time/GCodes Start Time: 09:32 Stop Time: 09:41 Total Time Billed (hr/min): 9 Billed Treatment Time 1, EX MAHAD BRAGA OT Feb 12, 2020 10:02
[2020-02-12 10:19] VITALS: BP 154/54
[2020-02-12] MEDS ORDERED: METO50TA7 PO (10:52)
[2020-02-12] MEDS ORDERED: ATOR20TA66 PO (10:52)
--- NOTE | 2020-02-12 11:25 | NUR ---
CM/SS follow up. Plan: The patient is going to move in with his son that resides in [place]. The patients son is present in the room at the time of discussion. CM/SS verified/clarified the plans for discharge with the patients son. He verbalized that he is going to take care of his father at home and get him set up with the family Primary Care Physician. Then will get him set up with Home Health. CM/SS went summarized plan before leaving. They verbalized understanding. CM/SS visited with the patient before his son arrived. CM/SS discussed with the patient that if he were to go home with his son Dawson, without any additional help this SS would make an APS report. The patient verbalized understanding. CM/SS discussed going to a nursing facility and the patient refused. The patient has not been very compliant. The patient states that he believes his other son would be able to take care of him better. CM/SS met with the patients son from [place] who has taken care of his mother and is willing and able to provided the patient with adequate care. He verbalizes that he will get the patient set up with a PCP and Home Health.
--- NOTE | 2020-02-12 11:30 | NUR ---
Important Message from Medicare presented, reviewed, signed and placed in patient chart. Patient and son voiced no intention to appeal and deny any needs or further questions at this time.
--- NOTE | 2020-02-12 11:31 | Physical Therapy Daily Note ---
PT Daily Note-Current Subjective Patient has no pain but tightness in B LE at quad level after prolong standing. Appearance Patient was found standing in his room urination in a urinal. Patient was then safely redirected post this back to the bed for a gait belt to be applied. At end of session patient was in recliner with alarm set at call light/tray in reach. Mental Status Patient Orientation: Person, Confused, Place, Eyes Open Transfers SCALE: Activities may be completed with or without assistive devices. 8-Xrhowhlpvw-hifsoox completes the activity by him/herself with no assistance from a helper. 5-Set-up or Clean-up Assistance-helper sets up or cleans up; patient completes activity. [place] assists only prior to or following the activity. 4-Supervision or Touching Assistance-helper provides verbal cues and/or touching/steadying and/or contact guard assistance as patient completes activity. Assistance may be provided throughout the activity or intermittently. 3-Partial/Moderate Assistance-helper does LESS THAN HALF the effort. [place] lifts, holds or supports trunk or limbs, but provides less than half the effort. 2-Substantial/Maximal Assistance-helper does MORE THAN HALF the effort. [place] lifts or holds trunk or limbs and provides more than half the effort. 8-Ajouiiekl-scjjqi does ALL the effort. Patient does none of the effort to complete the activity. Or, the assistance of 2 or more helpers is required for the patient to complete the activity. If activity was not attempted, code reason: 7-Patient Refused. 9-Not Applicable-not attempted and the patient did not perform the activity before the current illness, exacerbation or injury. 10-Not Attempted due to Environmental Limitations-(lack of equipment, weather restraints, etc.). 88-Not Attempted due to Medical Conditions or Safety Concerns. Sit to Stand (QC): 4 (SBA) Chair/Rce-ut-Zirgb Xfer(QC): 4 (SBA) SBA for safety due to confusion Weight Bearing Right Lower Extremity: Right Weight Bearing/Tolerated Left Lower Extremity: Left Weight Bearing/Tolerated Gait Training Does the Patient Walk?: Yes Distance: 125' Walk 10 feet (QC): 4 (SBA) Walk 50 ft with 2 Turns(QC): 4 (CGA) Gait Assistive Device: FWW Ambulates with forward gait and has trouble staying inside of the RW. Patient has irregular stepping pattern due to "pain" in B LE. Exercises Seated Therapy Exercises: Ankle pumps, Long arc quads Seated Reps: 2 (10) Assessment Current Status: Good Progress Patient is confused sometimes and requires reorientation for safety. Patient reports he wants to go home with son and initiate home health. Son present and confirms. PT notified SW. PT Group Home Goals Regional Sales Engineer Goals PT Regional Sales Engineer Goals Time Frame: Feb 14, 2020 Roll Left & Right (QC): 6 Sit to Lying (QC): 6 Lying-Sitting on Side/Bed(QC): 6 Sit to Stand (QC): 4 Chair/Fzj-nu-Ekldf Xfer(QC): 4 Walk 10 feet (QC): 4 Walk 50ft with 2 Turns (QC): 4 PT Plan Problem List Problem List: Activity Tolerance, Functional Strength, Safety, Balance, Gait, Transfer, ROM Treatment/Plan Treatment Plan: Continue Plan of Care Treatment Plan: Bed Mobility, Education, Functional Activity [place], Functional Strength, Gait, Safety, Therapeutic Exercise, Transfers Treatment Duration: Feb 14, 2020 Frequency: 6 times per week Estimated Hrs Per Day: .25 hour per day Patient and/or Family Agrees t: Yes Safety Risks/Education Patient Education: Gait Training Teaching Recipient: Patient, Family Teaching Methods: Demonstration, Discussion Response to Teaching: Verbalize Understanding, Return Demonstration, Reinforcement Needed Time/GCodes Time In: 1010 Time Out: 1025 Total Billed Treatment Time: 15 Total Billed Treatment 1 visit GT 15' JING PEDERSON PT Feb 12, 2020 11:31
[2020-02-12 12:00] VITALS: BP 154/54
[2020-02-12] MEDS ORDERED: RT-ALBUTEROL/IPRATROPIUM 3 ML (DUONEB) VIAL INH PRN (12:00)
--- NOTE | 2020-02-12 14:49 | NUR ---
PT REFUSED MEDICATION Addendum: 02/12/20 at 1449 by MARÍA LIEBERMAN RT Amended: Links added.
--- NOTE | 2020-02-12 16:13 | Discharge Summary ---
Discharge Summary Hospital Course Was the Problem List Reviewed?: Yes Problems/Dx: (1) Urinary tract infection Status: Resolved Qualifiers: Qualified Codes: N30.01 - Acute cystitis with hematuria (2) Acute urinary retention Status: Resolved (3) Elevated troponin I level Status: Resolved (4) Renal failure Status: Resolved Qualifiers: Qualified Codes: N19 - Unspecified kidney failure Hospital Course Date of Admission: Feb 07, 2020 at 04:00 Admission Diagnosis : Urinary tract infection Family Physician/Provider: Mamie,Local Physician Date of Discharge: 02/12/20 Discharge Diagnosis: Urinary tract infection Hospital Course: Brayden Wilcox is an 84 year old man who presented with urinary retention and was admitted with urinary tract infection. He had gross hematuria which was thought to be related to a recent TURP. Urology was consulted and recommended follow up outpatient for a cystoscopy. He also had an elevated troponin and Cardiology was consulted. They recommended conservative management. He was given a course of antibiotics for his UTI. He was encouraged to go to [facility] or home health on discharge, but he refused and left with his son who lives in [place]. He was encouraged to establish with a primary care physician in [place] and follow up with Cardiology and Urology. Labs and Pending Lab Test: Laboratory Tests 02/12/20 04:20: White Blood Count 10.1, Red Blood Count 3.44L, Hemoglobin 8.9L, Hematocrit 29L, Mean Corpuscular Volume 85, Mean Corpuscular Hemoglobin 26, Mean Corpuscular Hemoglobin Concent 31L, Red Cell Distribution Width 15.0H, Platelet Count 364, Mean Platelet Volume 11.2H, Sodium Level 139, Potassium Level 4.6, Chloride Level 107, Carbon Dioxide Level 24, Anion Gap 8, Blood Urea Nitrogen 32H, Creatinine 1.82H, Estimat Glomerular Filtration Rate 36, BUN/Creatinine Ratio 18, Glucose Level 165H, Calcium Level 7.6L Microbiology 02/07/20 Urine Culture - Final, Complete NO GROWTH Home Meds Active Metoprolol Succinate 50 Mg Tab.er.24h 50 Mg PO DAILY 90 Days Atorvastatin Calcium 20 Mg Tablet 20 Mg PO HS 90 Days Reported Aspirin 81 Mg Tab.chew 81 Mg PO DAILY Milk of Magnesia (Magnesium Hydroxide) 400 Mg/5 Ml Oral.susp 30 Ml PO Q12H PRN Albuterol Sulfate 2.5 Mg/0.5 Ml Vial.neb 2.5 Mg INH Q6H Omeprazole 20 Mg Capsule.dr 20 Mg PO DAILY Ondansetron HCl 4 Mg Tablet 4 Mg PO Q8H PRN Simethicone 80 Mg Tab.chew 80 Mg PO QID Senna (Sennosides) 8.6 Mg Tablet 8.6 Mg PO BID Miralax (Polyethylene Glycol 3350) 17 Gm Powd.pack 17 Gm PO DAILY Docusate Sodium 100 Mg Tablet 100 Mg PO BID Metformin HCl 500 Mg Tablet 500 Mg PO BID Bumetanide 1 Mg Tablet 1 Mg PO DAILY Lisinopril 5 Mg Tablet 5 Mg PO DAILY Assessment/Pt Instructions Take medications as prescribed. Establish care with a primary care physician. You will need to follow up with a urologist for cystoscopy. You will need to follow up with a switch adjuster due to coronary artery disease. Discharge Planning: <30 minutes discharge planning Discharge Instructions Discharge Diet: No Restrictions Activity as Tolerated: Yes Consultations Urology, Cardiology Discharge Physical Examination Vital Signs Vital Signs Date Time Temp Pulse Resp B/P (MAP) Pulse Ox O2 Delivery O2 Flow Rate FiO2 02/12/20 12:00 37.0 57 20 154/54 100 Room Air 02/09/20 16:17 1.00 General Appearance: No Apparent Distress, Chronically ill, Thin Respiratory: Lungs Clear, Normal Breath Sounds, No Respiratory Distress Cardiovascular: Regular Rate, Rhythm, No Edema, No Murmur Gastrointestinal: Normal Bowel Sounds, Non Tender, Soft Extremity: Normal Inspection, Non Tender, No Pedal Edema Skin: Normal Color, Warm/Dry Neurologic/Psychiatric: Alert, No Motor/Sensory Deficits, Normal Mood/Affect Allergies: Uncoded Allergies: pneumonia vaccine (Adverse Reaction, Unknown, 02/06/20) Discharge Summary Date of Admission Feb 07, 2020 at 04:00 Date of Discharge Feb 12, 2020 at 12:03 Discharge Date: Feb 12, 2020 Discharge Time: 12:03 Admission Diagnosis UTI Consults/Procedures Consulations Urology, Cardiology Discharge Diagnosis (1) Urinary tract infection Status: Resolved Qualifiers: Qualified Codes: N30.01 - Acute cystitis with hematuria (2) Elevated troponin I level Status: Resolved (3) Acute urinary retention Status: Resolved (4) Renal failure Status: Resolved Qualifiers: Qualified Codes: N19 - Unspecified kidney failure Clinical Quality Measures DVT/VTE Risk/Contraindication: Risk Factor Score Per Nursin RFS Level Per Nursing on Admit: 4+=Very High QUINTEN HORAN MD Feb 12, 2020 16:13
== END 2020-02-12 12:03 | disposition home health service (06) | DRG 682 ==
LOC: EDUNIT# 02:15 → ER 02:16 → ICU 04:00 → 4TH 12:23
PROVIDERS: ADMIT Internal Medicine; ATTEND Internal Medicine
DX: N17.9 Acute kidney failure, unspecified (principal); N39.0 Urinary tract infection, site not specified; R31.0 Gross hematuria; R33.9 Retention of urine, unspecified; I21.4 Non-ST elevation (NSTEMI) myocardial infarction; I13.0 Hypertensive heart and chronic kidney disease with heart failure and stage 1 through stage 4 chronic kidney disease, or unspecified chronic kidney disease; I50.43 Acute on chronic combined systolic (congestive) and diastolic (congestive) heart failure; J90 Pleural effusion, not elsewhere classified; Z66 Do not resuscitate; N18.9 Chronic kidney disease, unspecified; D64.9 Anemia, unspecified; I25.10 Atherosclerotic heart disease of native coronary artery without angina pectoris; E11.9 Type 2 diabetes mellitus without complications; E78.5 Hyperlipidemia, unspecified; K59.00 Constipation, unspecified; R41.0 Disorientation, unspecified; R09.02 Hypoxemia; Z87.891 Personal history of nicotine dependence; Z90.79 Acquired absence of other genital organ(s)
CPT/HCPCS: 36415; 71045; 74176; 80048; 80053; 80306; 81000; 83605; 83690; 83735; 83880; 84484; 85007; 85025; 85027; 86850; 86900; 86901; 86920; 87088; 93005; 93306; 94640; 94760; 94761

== ENCOUNTER 2020-12-28 02:54 | Inpatient (IN) | payer MEDICARE, OTHER ==
[~2020-12-28] VITALS: Ht 183 cm; Wt 89.2 kg
[~2020-12-28 02:54] MED LIST: ALB0.5V INH; ASPI-999 PO; ATOR20TA66 PO; BUME1TAB8 PO; CARV6.252 PO; DOCU100T2 PO; LISI-556 PO; MAGN400O7 PO; METF-397 PO; METO50TA7 PO; OMEP20CA18 PO; ONDA-105 PO; POLY17PO6 PO; RT-ALBUINH; SENN-234 PO; SIME80TA16 PO
[2020-12-28] MEDS ORDERED: NS IV 1000 ML 1,000 ML ONE (03:05)
[2020-12-28] MEDS ORDERED: morphine INJ 10 MG/ML 1ML (SYR OR VIAL) ONE (03:05)
[2020-12-28] MEDS ORDERED: ONDANSETRON 4 MG/2 ML (SDV) Z0FRAN ONE (03:12)
[2020-12-28] MEDS ORDERED: NS IV 1000 ML 1,000 ML IV SCH ×2 (03:15→03:30)
[2020-12-28] MEDS ORDERED: morphine INJ 10 MG/ML 1ML (SYR OR VIAL) IVP ONE (03:15)
[2020-12-28] MEDS ORDERED: ONDANSETRON 4 MG/2 ML (SDV) Z0FRAN IVP ONE (03:15)
[2020-12-28] MEDS ORDERED: ASPIRIN 81 MG CHEW (CHILDREN'S ASA) PO ONE (03:15)
[2020-12-28] MEDS ORDERED: LORazepam INJ 2 MG/ML (ATIVAN) VIAL ONE (03:16)
[2020-12-28 03:26] LABS: BASOPHILS # (AUTO) 0.1 10^3/uL (0.0-0.1); BASOPHILS % (AUTO) 1 % (0-10); EOSINOPHILS # (AUTO) 0.2 10^3/uL (0.0-0.3); EOSINOPHILS % (AUTO) 1 % (0-10); HEMATOCRIT 21 % (40-54); LYMPHOCYTES # (AUTO) 1.5 10^3/uL (1.0-4.0); LYMPHOCYTES % (AUTO) 10 % (12-44); MEAN CORPUSCULAR HGB CONC 30 g/dL (32-36); MEAN CORPUSCULAR VOLUME 75 fL (80-99); MEAN PLATELET VOLUME 11.9 fL (9.0-12.2); MONOCYTES # (AUTO) 0.8 10^3/uL (0.0-1.0); MONOCYTES % (AUTO) 5 % (0-12); NEUTROPHILS # (AUTO) 12.5 10^3/uL (1.8-7.8); NEUTROPHILS % (AUTO) 83 % (42-75); PLATELET COUNT 269 10^3/uL (130-400); WHITE BLOOD COUNT 15.1 10^3/uL (4.3-11.0)
[2020-12-28 03:27] LABS: HEMOGLOBIN 6.2 g/dL (13.3-17.7); MEAN CORPUSCULAR HEMOGLOBIN 22 pg (25-34)
[2020-12-28] MEDS ORDERED: LORazepam INJ 2 MG/ML (ATIVAN) VIAL IVP ONE (03:30)
[2020-12-28 03:38] LABS: ALBUMIN 3.8 GM/DL (3.2-4.5); CHLORIDE 105 MMOL/L (98-107); INR 1.1 (0.8-1.4); POTASSIUM 4.8 MMOL/L (3.6-5.0); PROTHROMBIN TIME PATIENT 14.4 SEC (12.2-14.7); SODIUM 142 MMOL/L (135-145)
[2020-12-28] MEDS ORDERED: LIDOCAINE UROJET 2% GEL 10 ML PKG ONE (03:38)
[2020-12-28 03:40] LABS: AMYLASE 40 U/L (25-125); CALCIUM 8.5 MG/DL (8.5-10.1)
[2020-12-28 03:41] LABS: GLUCOSE 160 MG/DL (70-105); TOTAL PROTEIN 6.9 GM/DL (6.4-8.2)
[2020-12-28 03:42] LABS: CARBON DIOXIDE 16 MMOL/L (21-32)
[2020-12-28 03:43] LABS: BILIRUBIN,TOTAL 0.4 MG/DL (0.1-1.0)
[2020-12-28 03:44] LABS: ALKALINE PHOSPHATASE 93 U/L (40-136)
[2020-12-28 03:45] LABS: CREATININE SERUM 2.86 MG/DL (0.60-1.30); GFR ESTIMATED 21
[2020-12-28] MEDS ORDERED: LIDOCAINE UROJET 2% GEL 10 ML PKG TOP ONE (03:45)
[2020-12-28 03:46] LABS: BUN/CREATININE RATIO 20
[2020-12-28 03:47] LABS: MAGNESIUM 2.7 MG/DL (1.6-2.4)
[2020-12-28 03:48] LABS: ALANINE AMINOTRANSFERASE 12 U/L (0-55)
[2020-12-28 03:49] LABS: CREATINE KINASE 58 U/L (30-200); LIPASE 25 U/L (8-78)
[2020-12-28 03:57] LABS: CREATINE KINASE MB 3.3 NG/ML (<6.6)
[2020-12-28 04:08] LABS: BILIRUBIN,URINE NEGATIVE (NEGATIVE); CLARITY,URINE TURBID; COLOR,URINE RED; GLUCOSE, URINE (UA) 3+ (NEGATIVE); KETONES,URINE 1+ (NEGATIVE); LEUKOCYTE ESTERASE ,URINE 3+ (NEGATIVE); NITRITE,URINE POSITIVE (NEGATIVE); PROTEIN,URINE 3+ (NEGATIVE)
[2020-12-28 04:30] LABS: BACTERIA,URINE TRACE /HPF; RBC,URINE TNTC /HPF
[2020-12-28] MEDS ORDERED: cefTRIAXone FOR IV USE 1,000 MG in WATER (STERILE) FOR INJECTION 10 ML IV ONE (04:30)
[2020-12-28 04:31] LABS: SQUAMOUS EPITHELIAL CELL,UR 0-2 /HPF
[2020-12-28 04:40] LABS: ANISOCYTOSIS SLIGHT; EOSINOPHILS % (MANUAL) 1 %; HYPOCHROMASIA SLIGHT; LYMPHOCYTES % (MANUAL) 9 %; MICROCYTOSIS SLIGHT; MONOCYTES % (MANUAL) 5 %; NEUTROPHILS % (MANUAL) 85 %; POLYCHROMASIA SLIGHT
[2020-12-28 04:41] LABS: ELLIPT/OVALOCYTES SLIGHT; SCHISTOCYTES SLIGHT
[2020-12-28] MEDS ORDERED: WATER (STERILE) FOR INJECTION 10 ML ONE (05:00)
[2020-12-28] MEDS ORDERED: cefTRIAXone 1,000 MG IV (ROCEPHIN) VIAL ONE (05:01)
[2020-12-28 05:20] LABS: AMPHETAMINE SCREEN, URINE NEGATIVE (NEGATIVE); BARBITURATE SCREEN URINE NEGATIVE (NEGATIVE); BENZODIAZEPINES SCREEN URINE NEGATIVE (NEGATIVE); CANNABINOID SCREEN, URINE NEGATIVE (NEGATIVE); COCAINE SCREEN URINE NEGATIVE (NEGATIVE); METHADONE STAT NEGATIVE (NEGATIVE); METHAMPHETAMINE SCREEN URINE S NEGATIVE (NEGATIVE); OPIATE SCREEN URINE POSITIVE (NEGATIVE); OXYCODONE STAT NEGATIVE (NEGATIVE); PROPOXYPHENE STAT NEGATIVE (NEGATIVE); TRICYCLIC ANTIDEPRESSANTS SCRE NEGATIVE (NEGATIVE)
--- NOTE | 2020-12-28 05:22 | Pulmonary Consultation ---
History of Present Illness History of Present Illness Date Seen by Provider: Dec 28, 2020 Time Seen by Provider: 05:21 Date of Admission History of Present Illness 85yo poor historian presented to ED per his son secondary to hematuria, confusion and weakness. Pt was found to have hypotension, anemia, and severe sepsis. While in the ED pt was confused and combative. He was given Ativan and Morphine. Pt is now in ICU hypotensive, confused, lethargic. Unable to obtain any information for pt. He is currently being transfused 1 unit of PRBC. Surgery consulted and notified of need for central line. IVF with LR also currently going and being bolused. Allergies and Home Medications Allergies Uncoded Allergies: pneumonia vaccine (Adverse Reaction, Unknown, 02/06/20) Home Medications Albuterol Sulfate 2.5 Mg/0.5 Ml Vial.neb, 2.5 MG INH Q6H, (Reported) Aspirin 81 Mg Tab.chew, 81 MG PO DAILY, (Reported) Atorvastatin Calcium 20 Mg Tablet, 20 MG PO HS Prescribed by: QUINTEN HORAN on 02/12/20 1052 Bumetanide 1 Mg Tablet, 1 MG PO DAILY, (Reported) Docusate Sodium 100 Mg Tablet, 100 MG PO BID, (Reported) Lisinopril 5 Mg Tablet, 5 MG PO DAILY, (Reported) Magnesium Hydroxide 400 Mg/5 Ml Oral.susp, 30 ML PO Q12H PRN for CONSTIPATION- 7TH LINE, (Reported) Metformin HCl 500 Mg Tablet, 500 MG PO BID, (Reported) Metoprolol Succinate 50 Mg Tab.er.24h, 50 MG PO DAILY Prescribed by: QUINTEN HORAN on 02/12/20 1052 Omeprazole 20 Mg Capsule.dr, 20 MG PO DAILY, (Reported) Ondansetron HCl 4 Mg Tablet, 4 MG PO Q8H PRN for NAUSEA/VOMITING-1ST LINE, (Reported) Polyethylene Glycol 3350 17 Gm Powd.pack, 17 GM PO DAILY, (Reported) Sennosides 8.6 Mg Tablet, 8.6 MG PO BID, (Reported) Simethicone 80 Mg Tab.chew, 80 MG PO QID, (Reported) Past Fgqubax-Cufldf-Qafbdy Hx Patient Social History Alcohol Use: Denies Use Smoking Status: Current Everyday Smoker 2nd Hand Smoke Exposure: Yes Recent Infectious Disease Expo: No Recent Hopitalizations: No Immunizations Up To Date Tetanus Booster (TDap): Unknown Date of Influenza Vaccine: Aug 21, 2019 Seasonal Allergies Seasonal Allergies: No Past Medical History Surgeries: Yes (HERNIA) Prostatectomy Respiratory: Yes (HOME O2) Cardiac: Yes Coronary Artery Disease, High Cholesterol, Hypertension Neurological: No Genitourinary: Yes Benign Prostatic Hyperpl, Prostate Problems Gastrointestinal: No Musculoskeletal: No Endocrine: Yes Diabetes, Non-Insulin dep HEENT: No Cancer: No Psychosocial: No Integumentary: No Blood Disorders: No Adverse Reaction/Blood Tranf: No Family Medical History Patient reports no known family medical history. Review of Systems Time Seen by Provider: 05:21 Sepsis Event Evaluation Height, Weight, BMI Height: '" Weight: lbs. oz. kg; 23.00 BMI Method: Exam Exam Vital Signs Date Time Temp Pulse Resp B/P (MAP) Pulse Ox O2 Delivery O2 Flow Rate FiO2 12/28/20 05:02 36.6 91 18 106/55 95 Nasal Cannula 2.00 12/28/20 02:57 100 Nasal Cannula 2.00 12/28/20 02:57 36.0 92 45 90/64 (73) 100 Nasal Cannula 2.00 I & O 12/28/20 07:00 Intake Total 1010 ml Balance 1010 ml Height & Weight Height: '" Weight: lbs. oz. kg; 23.00 BMI Method: General Appearance: Anxious, Chronically ill, Moderate Distress HEENT: PERRL/EOMI, Pharynx Normal Neck: Full Range of Motion, Non Tender, Supple Respiratory: Chest Non Tender, No Accessory Muscle Use, No Respiratory Dis tress, Crackles, Decreased Breath Sounds Cardiovascular: Regular Rate, Rhythm, No Edema, No JVD, No Murmur Capillary Refill: Less Than 3 Seconds Gastrointestinal: soft, no organomegaly; No distended, No guarding, No rebound; tenderness Extremity: Normal Capillary Refill, Normal Inspection, Non Tender Neurologic/Psychiatric: Alert, Depressed Affect, Disoriented Skin: Normal Color, Warm/Dry Lymphatic: No Adenopathy Results Lab Laboratory Tests 12/28/20 03:05 Assessment/Plan Assessment/Plan Severe sepsis with UTI -Start Rocephin -Suarez cultures pending -IVF -Give another liter of LR Hypotension -SBP is 61/44 -Consult [facility] for central line. -Notified at 0550 -Give another liter of LR -Transfuse 2 units of PRBC Anemia with hematuria -Check CT of abdomen and pelvis without contrast -will give 2 units of PRBC -monitor -Consult surgery and urology Acute renal failure with metabolic lactic acidosis -Monitor -IVF Severe dehydration -IVF Metabolic encephalopathy -s/p Ativan and Morphine in ED -Check CT of head TABATHA KELLEY DO Dec 28, 2020 05:22
[2020-12-28] MEDS ORDERED: NS IV 500 ML 500 ML ONE (05:28)
[2020-12-28] MEDS ORDERED: morphine INJ 4 MG/ML 1 ML (VIAL/SYRINGE) IV PRN (05:30)
[2020-12-28] MEDS ORDERED: ONDANSETRON 4 MG/2 ML (SDV) Z0FRAN IVP PRN ×2 (05:30)
[2020-12-28] MEDS ORDERED: LORazepam INJ 2 MG/ML (ATIVAN) VIAL IVP PRN (05:30)
[2020-12-28 05:44] VITALS: BP 114/86
[2020-12-28 05:48] LABS: ABG BASE EXCESS -5.9 MMOL/L (-2.5-2.5); ABG OXYGEN SATURATION 17 % (94-100); ABG PCO2 40 MMHG (35-45); ABG PO2 22 MMHG (79-93); ABG TCO2 20.9 MMOL/L (21.0-31.0)
[2020-12-28 05:49] LABS: ALLENS TEST POSITIVE; INSPIRED O2 2L; PATIENT TEMP 36; VENTILATOR NO
[2020-12-28] MEDS ORDERED: LACTATED RINGERS 1,000 ML IV ONE ×2 (05:49→06:00)
--- NOTE | 2020-12-28 05:50 | NUR ---
0550: DR. KELLEY IN TO ASSESS PT; CRITICAL LAB RESULTS, PT'S CONDITION, SBP IN THE 60'S TO 70'S NOTED TO DOCTOR. TO ENTER ORDERS AT THIS TIME.
[2020-12-28 06:00] VITALS: BP 78/31
--- NOTE | 2020-12-28 06:26 | ED General ---
General Chief Complaint: Abdominal/GI Problems Stated Complaint: NSTEMI;SEVERE ANEMIA;RENAL FAILURE;UTI;POSS SEPSIS Nursing Triage Note: abdominal/chest pain, gas/bloating since 1500 12/27/20 Nursing Sepsis Screen: Severe Sepsis Risk Source of Information: Patient (EXTREMELY POOR HISTORIAN, UNABLE TO OBTAIN ANY RELIABLE INFORMATION FROM PT, NOR FROM SON), Old Records History of Present Illness Date Seen by Provider: Dec 28, 2020 Time Seen by Provider: 02:55 Initial Comments PT ARRIVES VIA POV FROM HOME WITH SON, REQUIRES FULL ASSIST FROM VEHICLE INTO WHEELCHAIR ON ARRIVAL ARRIVES WITH PORTABLE O2 TANK, BUT PT IS NOT WEARING IT--NO NASAL CANULA ATTACHED TO THE TUBING PT IS MOANING VERY LOUDLY, WAILING, GRUNTING AND GROWLING VERY LOUDLY, AND VERY AGITATED PT IS UNABLE TO GIVE ANY RELEVANT INFORMATION OR ANSWER ANY QUESTIONS RELIABLY WHEN ASKED WHY HE IS HERE, THE ONLY THING HE WILL SAY IS "GAS" "I NEED A LAXATIVE" AND IS YELLING THIS REPEATEDLY UNABLE TO STATE IF HE HAS PAIN ANYWHERE WHEN ASKED, THEN LATER AT ONE POINT HE DOES PUT BOTH OF HIS HANDS ON HIS CHEST AND STATES "I GOT GAS -IT'S IN MY LUNGS" "MY PAIN'S IN MY FLESH" "LIKE A KNIFE STABBING ME" "MY KIDNEYS ARE BLEEDING" WANTS TO HAVE A BM ON ARRIVAL. SHORTLY AFTER ARRIVAL, C/O NAUSEA AND HAVING DRY HEAVES NO OTHER INFORMATION IS OBTAINABLE. UNABLE TO LOCATE SON AFTER PT ARRIVED IN ER. PHONE NUMBER GIVEN IS SON'S ROOM MATE'S NUMBER. PT TOLD ER [employer] MANA[employer] HE WAS ON HIS WAY TO [place] PT HAS LEFT AGAINST MEDICAL ADVICE ON 2 PREVIOUS VISITS HERE [facility] [place] [facility] [place] Allergies and Home Medications Allergies Uncoded Allergies: pneumonia vaccine (Adverse Reaction, Unknown, 02/06/20) Home Medications Albuterol Sulfate 2.5 Mg/0.5 Ml Vial.neb, 2.5 MG INH Q6H, (Reported) Aspirin 81 Mg Tab.chew, 81 MG PO DAILY, (Reported) Atorvastatin Calcium 20 Mg Tablet, 20 MG PO HS Prescribed by: QUINTEN HORAN on 02/12/20 1052 Bumetanide 1 Mg Tablet, 1 MG PO DAILY, (Reported) Docusate Sodium 100 Mg Tablet, 100 MG PO BID, (Reported) Lisinopril 5 Mg Tablet, 5 MG PO DAILY, (Reported) Magnesium Hydroxide 400 Mg/5 Ml Oral.susp, 30 ML PO Q12H PRN for CONSTIPATION- 7TH LINE, (Reported) Metformin HCl 500 Mg Tablet, 500 MG PO BID, (Reported) Metoprolol Succinate 50 Mg Tab.er.24h, 50 MG PO DAILY Prescribed by: QUINTEN HORAN on 02/12/20 1052 Omeprazole 20 Mg Capsule.dr, 20 MG PO DAILY, (Reported) Ondansetron HCl 4 Mg Tablet, 4 MG PO Q8H PRN for NAUSEA/VOMITING-1ST LINE, (Repo rted) Polyethylene Glycol 3350 17 Gm Powd.pack, 17 GM PO DAILY, (Reported) Sennosides 8.6 Mg Tablet, 8.6 MG PO BID, (Reported) Simethicone 80 Mg Tab.chew, 80 MG PO QID, (Reported) Patient Home Medication List Home Medication List Reviewed: Yes Review of Systems Review of Systems Constitutional: other (MINIMAL INFORMATION FROM PT) Cardiovascular: see HPI Genitourinary: see HPI Past Djuugml-Nifvlx-Ixggci Hx Patient Social History Alcohol Use: Denies Use Smoking Status: Current Everyday Smoker 2nd Hand Smoke Exposure: Yes Recent Infectious Disease Expo: No Recent Hopitalizations: No Immunizations Up To Date Tetanus Booster (TDap): Unknown Date of Influenza Vaccine: Aug 21, 2019 Seasonal Allergies Seasonal Allergies: No Past Medical History Surgeries: Yes (HERNIA) Abdominal, Prostatectomy, Transurethral Resection Respiratory: Yes (HOME O2) Cardiac: Yes Coronary Artery Disease, High Cholesterol, Hypertension Neurological: No Genitourinary: Yes Benign Prostatic Hyperpl, Prostate Problems Gastrointestinal: No Musculoskeletal: No Endocrine: Yes Diabetes, Non-Insulin dep HEENT: No Cancer: No Psychosocial: No Integumentary: No Blood Disorders: No Adverse Reaction/Blood Tranf: No Family Medical History Patient reports no known family medical history. ALL PAST MEDICAL HISTORY IS FROM OLD CHART Physical Exam Vital Signs Vital Signs - First Documented Capillary Refill : Less Than 3 Seconds Height, Weight, BMI Height: '" Weight: lbs. oz. kg; 23.00 BMI Method: General Appearance: Anxious, Other (MOANING, WAILING, GRUNTING AND GROWLING VERY LOUDLY AND CONTINUOUSLY, THRASHING ALL OVER, NOT ANSWERING QUESTIONS OR FOLLOWING COMMANDS. REEKS OF CIGARETTEWS) HEENT: Pale Conjunctivae (L), Pale Conjunctivae (R) Respiratory: Normal Breath Sounds Cardiovascular: Regular Rate, Rhythm Gastrointestinal: Soft Neurologic/Psychiatric: Alert, No Motor/Sensory Deficits (GROSSLY INTACT--PT MOVING ALL EXTREMITIES EQUALLY, BUT NOT FOLLOWING COMMANDS, VERY AGITATED. SPEECH IS CLEAR. ) Skin: Cool; No Diaphoresis Focused Exam Lactate Level 12/28/20 03:05: Lactic Acid Level 7.33*H 12/28/20 04:52: Lactic Acid Level 4.63*H Lactic Acid Level Laboratory Tests Test 12/28/20 03:05 12/28/20 04:52 Lactic Acid Level 7.33 MMOL/L (0.50-2.00) *H 4.63 MMOL/L (0.50-2.00) *H Progress/Results/Core Measures Suspected Sepsis Recent Fever Within 48 Hours: No Infection Criteria Present: Suspected New Infection New/Unexplained Altered Menta: No Sepsis Screen: Severe Sepsis Risk SIRS Temperature: Pulse: 93 Respiratory Rate: 14 Laboratory Tests 12/28/20 03:05: White Blood Count 15.1H Blood Pressure 114 /86 Mean: 95 12/28/20 03:05: Lactic Acid Level 7.33*H 12/28/20 04:52: Lactic Acid Level 4.63*H Laboratory Tests 12/28/20 03:05: Creatinine 2.86H, INR Comment 1.1, Platelet Count 269, Total Bilirubin 0.4 Results/Orders Lab Results Laboratory Tests Test 12/28/20 03:05 12/28/20 03:45 12/28/20 04:22 12/28/20 04:52 Range/Units White Blood Count 15.1 H 4.3-11.0 10^3/uL Red Blood Count 2.76 L 4.30-5.52 10^6/uL Hemoglobin 6.2 *L 13.3-17.7 g/dL Hematocrit 21 L 40-54 % Mean Corpuscular Volume 75 L 80-99 fL Mean Corpuscular Hemoglobin 22 L 25-34 pg Mean Corpuscular Hemoglobin Concent 30 L 32-36 g/dL Red Cell Distribution Width 14.8 H 10.0-14.5 % Platelet Count 269 130-400 10^3/uL Mean Platelet Volume 11.9 9.0-12.2 fL Immature Granulocyte % (Auto) 1 % Neutrophils (%) (Auto) 83 H 42-75 % Lymphocytes (%) (Auto) 10 L 12-44 % Monocytes (%) (Auto) 5 0-12 % Eosinophils (%) (Auto) 1 0-10 % Basophils (%) (Auto) 1 0-10 % Neutrophils # (Auto) 12.5 H 1.8-7.8 10^3/uL Lymphocytes # (Auto) 1.5 1.0-4.0 10^3/uL Monocytes # (Auto) 0.8 0.0-1.0 10^3/uL Eosinophils # (Auto) 0.2 0.0-0.3 10^3/uL Basophils # (Auto) 0.1 0.0-0.1 10^3/uL Immature Granulocyte # (Auto) 0.1 0.0-0.1 10^3/uL Neutrophils % (Manual) 85 % Lymphocytes % (Manual) 9 % Monocytes % (Manual) 5 % Eosinophils % (Manual) 1 % Polychromasia SLIGHT Hypochromasia SLIGHT Anisocytosis SLIGHT Microcytosis SLIGHT Elliptocytes SLIGHT Schistocytes SLIGHT Prothrombin Time 14.4 12.2-14.7 SEC INR Comment 1.1 0.8-1.4 Activated Partial Thromboplast Time 33 24-35 SEC Sodium Level 142 135-145 MMOL/L Potassium Level 4.8 3.6-5.0 MMOL/L Chloride Level 105 98-107 MMOL/L Carbon Dioxide Level 16 L 21-32 MMOL/L Anion Gap 21 H 5-14 MMOL/L Blood Urea Nitrogen 58 H 7-18 MG/DL Creatinine 2.86 H 0.60-1.30 MG/DL Estimat Glomerular Filtration Rate 21 BUN/Creatinine Ratio 20 Glucose Level 160 H 70-105 MG/DL Lactic Acid Level 7.33 *H 4.63 *H 0.50-2.00 MMOL/L Calcium Level 8.5 8.5-10.1 MG/DL Corrected Calcium 8.7 8.5-10.1 MG/DL Magnesium Level 2.7 H 1.6-2.4 MG/DL Total Bilirubin 0.4 0.1-1.0 MG/DL Aspartate Amino Transf (AST/SGOT) 12 5-34 U/L Alanine Aminotransferase (ALT/SGPT) 12 0-55 U/L Alkaline Phosphatase 93 40-136 U/L Total Creatine Kinase 58 30-200 U/L Creatine Kinase MB 3.3 <6.6 NG/ML Myoglobin 284.2 H 10.0-92.0 NG/ML Troponin I 0.102 H <0.028 NG/ML B-Type Natriuretic Peptide 2510.0 H <100.0 PG/ML Total Protein 6.9 6.4-8.2 GM/DL Albumin 3.8 3.2-4.5 GM/DL Amylase Level 40 25-125 U/L Lipase 25 8-78 U/L Serum Alcohol < 10 <10 MG/DL Urine Color RED H Urine Clarity TURBID Urine pH 7.0 5-9 Urine Specific [place] 1.015 L 1.016-1.022 Urine Protein 3+ H NEGATIVE Urine Glucose (UA) 3+ H NEGATIVE Urine Ketones 1+ H NEGATIVE Urine Nitrite POSITIVE H NEGATIVE Urine Bilirubin NEGATIVE NEGATIVE Urine Urobilinogen 4.0 < = 1.0 MG/DL Urine Leukocyte Esterase 3+ H NEGATIVE Urine RBC (Auto) 3+ H NEGATIVE Urine RBC TNTC H /HPF Urine WBC 5-10 H /HPF Urine Squamous Epithelial Cells 0-2 /HPF Urine Crystals NONE /LPF Urine Bacteria TRACE /HPF Urine Casts NONE /LPF Urine Mucus NEGATIVE /LPF Urine Culture Indicated NO Urine Opiates Screen POSITIVE H NEGATIVE Urine Oxycodone Screen NEGATIVE NEGATIVE Urine Methadone Screen NEGATIVE NEGATIVE Urine Propoxyphene Screen NEGATIVE NEGATIVE Urine Barbiturates Screen NEGATIVE NEGATIVE Ur Tricyclic Antidepressants Screen NEGATIVE NEGATIVE Urine Phencyclidine Screen NEGATIVE NEGATIVE Urine Amphetamines Screen NEGATIVE NEGATIVE Urine Methamphetamines Screen NEGATIVE NEGATIVE Urine Benzodiazepines Screen NEGATIVE NEGATIVE Urine Cocaine Screen NEGATIVE NEGATIVE Urine Cannabinoids Screen NEGATIVE NEGATIVE Test 12/28/20 05:41 12/28/20 06:17 Range/Units Blood Gas Puncture Site LEFT RADIAL Blood Gas Patient Temperature 36 Arterial Blood pH 7.30 *L 7.37-7.43 Arterial Blood Partial Pressure CO2 40 35-45 MMHG Arterial Blood Partial Pressure O2 22 *L 79-93 MMHG Arterial Blood HCO3 20 L 23-27 MMOL/L Arterial Blood Total CO2 20.9 L 21.0-31.0 MMOL/L Arterial Blood Oxygen Saturation 17 L 94-100 % Arterial Blood Base Excess -5.9 L -2.5-2.5 MMOL/L Terence Test POSITIVE Blood Gas Ventilator Setting NO Blood Gas Inspired Oxygen 2L Glucometer 134 H 70-110 MG/DL My Orders Orders - SHA KNOX DO Ed Iv/Invasive Line Start (12/28/20 03:02) Ekg Tracing (12/28/20 03:02) O2 (12/28/20 03:02) Monitor-Rhythm Ecg Trace Only (12/28/20 03:02) Cbc With Automated Diff (12/28/20 03:02) Magnesium (12/28/20 03:02) Chest 1 View, Ap/Pa Only (12/28/20 03:02) Ekg Tracing (12/28/20 03:02) Comprehensive Metabolic Panel (12/28/20 03:02) Myoglobin Serum (12/28/20 03:02) Protime With Inr (12/28/20 03:02) Partial Thromboplastin Time (12/28/20 03:02) O2 (12/28/20 03:02) Ed Iv/Invasive Line Start (12/28/20 03:02) Creatine Kinase (12/28/20 03:02) Creatine Kinase Mb (12/28/20 03:02) Lipase (12/28/20 03:02) Amylase (12/28/20 03:02) BNP (12/28/20 03:02) Aspirin Chewable Tablet (Baby Aspirin Ch (12/28/20 03:15) Ua Culture If Indicated (12/28/20 03:02) Alcohol (12/28/20 03:02) Troponin I (12/28/20 03:02) Ekg Tracing (12/28/20 03:08) Morphine Injection (Morphine Injection (12/28/20 03:15) Morphine Injection (Morphine Injection (12/28/20 03:05) Ns Iv 1000 Ml (Sodium Chloride 0.9%) (12/28/20 03:05) Ed Iv/Invasive Line Start (12/28/20 03:11) Ns Iv 1000 Ml (Sodium Chloride 0.9%) (12/28/20 03:15) Lactic Acid Analyzer (12/28/20 03:13) Blood Culture (12/28/20 03:13) Ondansetron Injection (Zofran Injectio (12/28/20 03:15) Ondansetron Injection (Zofran Injectio (12/28/20 03:12) Catheter(Urinary) Insert & Ass 15 (12/28/20 03:18) Lorazepam Injection (Ativan Injection) (12/28/20 03:30) Lorazepam Injection (Ativan Injection) (12/28/20 03:16) Manual Differential (12/28/20 03:05) Red Cells Leukocytes Reduced (12/28/20 03:30) Ed Iv/Invasive Line Start (12/28/20 03:30) Ns Iv 1000 Ml (Sodium Chloride 0.9%) (12/28/20 03:30) Type And Screen (12/28/20 03:30) Lidocaine 2% (Urojet) (Xylocaine Urojet) (12/28/20 03:45) Lidocaine 2% (Urojet) (Xylocaine Urojet) (12/28/20 03:38) Alcohol (12/28/20 04:22) Drug Screen Stat (Urine) (12/28/20 04:22) Ceftriaxone For Iv Use (Rocephin For I (12/28/20 04:30) Medications Given in ED Current Medications Medications Dose Ordered Sig/Gera Route Start Time Stop Time Status Last Admin Dose Admin Aspirin 324 mg ONCE ONCE PO 12/28/20 03:15 12/28/20 03:16 DC 12/28/20 03:11 324 MG Lidocaine HCl 10 ml ONCE ONCE TOP 12/28/20 03:45 12/28/20 03:46 DC 12/28/20 04:00 10 ML Lorazepam 1 mg ONCE ONCE IVP 12/28/20 03:30 12/28/20 03:31 DC 12/28/20 03:21 1 MG Morphine Sulfate 4 mg ONCE ONCE IVP 12/28/20 03:15 12/28/20 03:16 DC 12/28/20 03:11 4 MG Ondansetron HCl 8 mg ONCE ONCE IVP 12/28/20 03:15 12/28/20 03:16 DC 12/28/20 03:17 8 MG Sodium Chloride 1,000 ml @ STK-MED ONCE .ROUTE 12/28/20 03:05 12/28/20 03:10 DC 12/28/20 03:11 999 MLS/HR Vital Signs/I&O 12/28/20 12/28/20 12/28/20 12/28/20 02:57 02:57 05:02 05:18 Temp 36.0 36.6 36.0 Pulse 92 91 91 Resp 45 18 18 B/P (MAP) 90/64 (73) 106/55 114/86 (95) Pulse Ox 100 100 95 98 O2 Delivery Nasal Cannula Nasal Cannula Nasal Cannula Nasal Cannula O2 Flow Rate 2.00 2.00 2.00 2.00 12/28/20 12/28/20 12/28/20 05:23 05:44 06:00 Temp 36.0 36.0 Pulse 98 93 86 Resp 14 16 B/P (MAP) 114/86 78/31 Pulse Ox 98 97 O2 Delivery Nasal Cannula Nasal Cannula O2 Flow Rate 2.00 2.00 Capillary Refill : Less Than 3 Seconds Blood Pressure Mean: 95 Progress Note : Progress Note GIVEN ASPIRIN, MORPHINE, ZOFRAN, PROTONIX AND ATIVAN, WITH EVENTUAL CALMING OF PT, NOW RESTING QUIETLY PT WITH BP IN 90'S SYSTOLIC, BUT STABLE GIVEN IV FLUIDS AND BLOOD ORDERED. NO DETERIORATION IN PT'S CONDITION DURING ER STAY ECG Initial ECG Impression Date: Dec 28, 2020 Initial ECG Impression Time: 03:06 Initial ECG Rate: 87 Initial ECG Rhythm: Normal Sinus Comment ST ELEVATION IN LEAD 3, ST DEPRESSION ANTERIORLY/LATERALLY INFERIOR, LATERAL Q WAVES LIMITED EXAM DUE TO PT UNCOOPERATIVENESS EKG : EKG Time: 03:07 Rate: 88 Rhythm: Normal Sinus Comment EKG #2 --SAME EKG#1 EKG #3 AT 0328--RATE 95, NSR, ST ELEVATION LEAD 3, BORDERLINE ST ELEVATION LEAD AVF, ST DEPRESSION T WAVE INVERSION LEAD 1 AND AVL, ST DEPRESSION V2, V4-6. SLIGHT CHANGE FROM PREVIOUS Diagnostic Imaging Comments CXR--NO ACUTE PROCESS, PENDING RADIOLOGIST REVIEW Departure Communication (Admissions) Family Conversation 0426--ATTEMPTING TO CONTACT PT'S SON. NUMBER GIVEN HIS NUMBER, IS SON'S ROOM MATE'S PHONE NUMBER, AND SON IS NOT AT THE HOUSE. ROOM MATE THAT SON DOES NOT HAVE A PHONE. SON HAS NOT ATTEMPTED TO COME BACK TO ER REGISTRATION OR ATTEMPT TO CHECK ON PT AT ANY TIME. 0310--SPOKE WITH DR. COLEMAN, EKG #1 AND #2 SENT TO HIM, HE REPORTS NO STEMI. 0340--EKG #[address] COLEMAN, 0402--SPOKE WITH DR. COLEMAN, HE REPORTS NO STEMI. PT IS SEVERELY ANEMIC, AND HYPOTENSIVE, WITH GROSS HEMATURIA, PT IS NOT A CANDIDATE FOR ANY KIND OF AN TICOAGULATION OTHER THAN ASPIRIN, ALSO NOT A CANDIDATE FOR BETA BLOCKERS DUE TO HYPOTENSION, NOT A CANDIDATE FOR IMMEDIATE PUSHER RUNNER DUE TO THE ABOVE ISSUES, IN ADDITION TO RENAL FAILURE. 0418--SPOKE WITH DR. KAN, HOSPITALIST, ACCEPTS PT FOR ADMIT. ADVISES TO CONTACT DR. KELLEY FOR CONSULT 0420--SPOKE WITH DR. KELLEY AND INFORMED HIM OF CONSULT. Impression Primary Impression: NSTEMI (non-ST elevated myocardial infarction) Additional Impressions: Severe anemia UTI (urinary tract infection) POSSIBLE SEPSIS Renal failure Hematuria IMPAIRED MENTATION AND AGITATION NIDDM Disposition: ADMITTED INPATIENT Condition: Stable Admissions Decision to Admit Reason: Admit from ER (General) Decision to Admit/Date: Dec 28, 2020 Time/Decision to Admit Time: 04:20 Departure-Patient Inst. Referrals: NO,LOCAL PHYSICIAN (PCP) Primary Care Physician SHA KNOX DO Dec 28, 2020 06:26
[2020-12-28] MEDS ORDERED: LACTATED RINGERS 1,000 ML IV SCH (06:30)
[2020-12-28 07:04] VITALS: BP 79/53
--- NOTE | 2020-12-28 07:11 | Consultation - Surgery ---
History of Present Illness History of Present Illness Patient Consulted On(milana/time) 12/28/20 07:06 Date Seen by Provider: Dec 28, 2020 Time Seen by Provider: 06:40 History of Present Illness Consult requested for central line by Dr. Orantes Patient is an 85 year old male with hematuria, weakness and confusion presenting to ER. Having gross in urine. Is hypotensive despite fluids and 1 unit prbc. Patient poor historian and not providing much information. Allergies and Home Medications Allergies Uncoded Allergies: pneumonia vaccine (Adverse Reaction, Unknown, 02/06/20) Home Medications Albuterol Sulfate 2.5 Mg/0.5 Ml Vial.neb, 2.5 MG INH Q6H, (Reported) Aspirin 81 Mg Tab.chew, 81 MG PO DAILY, (Reported) Atorvastatin Calcium 20 Mg Tablet, 20 MG PO HS Prescribed by: QUINTEN HORAN on 02/12/20 1052 Bumetanide 1 Mg Tablet, 1 MG PO DAILY, (Reported) Docusate Sodium 100 Mg Tablet, 100 MG PO BID, (Reported) Lisinopril 5 Mg Tablet, 5 MG PO DAILY, (Reported) Magnesium Hydroxide 400 Mg/5 Ml Oral.susp, 30 ML PO Q12H PRN for CONSTIPATION- 7TH LINE, (Reported) Metformin HCl 500 Mg Tablet, 500 MG PO BID, (Reported) Metoprolol Succinate 50 Mg Tab.er.24h, 50 MG PO DAILY Prescribed by: QUINTEN HORAN on 02/12/20 1052 Omeprazole 20 Mg Capsule.dr, 20 MG PO DAILY, (Reported) Ondansetron HCl 4 Mg Tablet, 4 MG PO Q8H PRN for NAUSEA/VOMITING-1ST LINE, (Reported) Polyethylene Glycol 3350 17 Gm Powd.pack, 17 GM PO DAILY, (Reported) Sennosides 8.6 Mg Tablet, 8.6 MG PO BID, (Reported) Simethicone 80 Mg Tab.chew, 80 MG PO QID, (Reported) Patient Home Medication List Home Medication List Reviewed: Yes Past Nrzzzsb-Ftczsw-Dvozff Hx Patient Social History Smoking Status: Current Everyday Smoker 2nd Hand Smoke Exposure: Yes Recent Hopitalizations: No Immunizations Up To Date Tetanus Booster (TDap): Unknown Date of Influenza Vaccine: Aug 21, 2019 Seasonal Allergies Seasonal Allergies: No Surgeries History of Surgeries: Yes (HERNIA) Surgeries: Abdominal, Prostatectomy, Transurethral Resection Respiratory History of Respiratory Disorde: Yes (HOME O2) Cardiovascular History of Cardiac Disorders: Yes Cardiac Disorders: Coronary Artery Disease, High Cholesterol, Hypertension Neurological History of Neurological Disord: No Genitourinary History of Genitourinary Disor: Yes Genitourinary Disorders: Benign Prostatic Hyperpl, Prostate Problems Gastrointestinal History of Gastrointestinal Di: No Musculoskeletal History of Musculoskeletal Dis: No Endocrine History of Endocrine Disorders: Yes Endocrine Disorders: Diabetes, Non-Insulin dep HEENT History of HEENT Disorders: No Cancer History of Cancer: No Psychosocial History of Psychiatric Problem: No Integumentary History of Skin or Integumenta: No Blood Transfusions History of Blood Disorders: No Adverse Reaction to a Blood Tr: No Reviewed Nursing Assessment Reviewed/Agree w Nursing PMH: Yes Family Medical History Significant Family History: No Pertinent Family Hx Family Medial History: Patient reports no known family medical history. Review of Systems-General ROS-Unable to Obtain: patient unable to provide due to condition Physical Exam-General Problems Physical Exam Vital Signs Vital Signs - First Documented Capillary Refill : Less Than 3 Seconds General Appearance: WD/WN, no apparent distress HEENT: PERRL/EOMI Neck: non-tender, full range of motion Respiratory: chest non-tender, no respiratory distress, no accessory muscle use Cardiovascular: regular rate, rhythm, JVD Gastrointestinal: non tender, soft, no organomegaly Rectal: deferred Genital/Rectal: other (gross blood in [facility]) Back: normal inspection, no CVA tenderness Neurologic/Psychiatric: alert, normal mood/affect Skin: warm/dry, pallor Lymphatic: no adenopathy Data Review Labs Laboratory Tests 12/28/20 03:05: White Blood Count 15.1H, Red Blood Count 2.76L, Hemoglobin 6.2*L, Hematocrit 21L , Mean Corpuscular Volume 75L, Mean Corpuscular Hemoglobin 22L, Mean Corpuscular Hemoglobin Concent 30L, Red Cell Distribution Width 14.8H, Platelet Count 269, Mean Platelet Volume 11.9, Immature Granulocyte % (Auto) 1, Neutrophils (%) (Auto) 83H, Lymphocytes (%) (Auto) 10L, Monocytes (%) (Auto) 5, Eosinophils (%) (Auto) 1, Basophils (%) (Auto) 1, Neutrophils # (Auto) 12.5H, Lymphocytes # (Auto) 1.5, Monocytes # (Auto) 0.8, Eosinophils # (Auto) 0.2, Basophils # (Auto) 0.1, Immature Granulocyte # (Auto) 0.1, Neutrophils % (Manual) 85, Lymphocytes % (Manual) 9, Monocytes % (Manual) 5, Eosinophils % (Manual) 1, Polychromasia SLIGHT, Hypochromasia SLIGHT, Anisocytosis SLIGHT, Microcytosis SLIGHT, Elliptocytes SLIGHT, Schistocytes SLIGHT, Prothrombin Time 14.4, INR Comment 1.1, Activated Partial Thromboplast Time 33, Sodium Level 142, Potassium Level 4.8, Chloride Level 105, Carbon Dioxide Level 16L, Anion Gap 21H, Blood Urea Nitrogen 58H, Creatinine 2.86H, Estimat Glomerular Filtration Rate 21, BUN/Creatinine Ratio 20, Glucose Level 160H, Lactic Acid Level 7.33*H, Calcium Level 8.5, Corrected Calcium 8.7, Magnesium Level 2.7H, Total Bilirubin 0.4, Aspartate Amino Transf (AST/SGOT) 12, Alanine Aminotransferase (ALT/SGPT) 12, Alkaline Phosphatase 93, Total Creatine Kinase 58, Creatine Kinase MB 3.3, Myoglobin 284.2H, Troponin I 0.102H, B-Type Natriuretic Peptide 2510.0H, Total Protein 6.9, Albumin 3.8, Amylase Level 40, Lipase 25, Serum Alcohol < 10 12/28/20 03:45: Urine Color REDH, Urine Clarity TURBID, Urine pH 7.0, Urine Specific [place] 1.015L, Urine Protein 3+H, Urine Glucose (UA) 3+H, Urine Ketones 1+H, Urine Nitrite POSITIVEH, Urine Bilirubin NEGATIVE, Urine Urobilinogen 4.0, Urine Leukocyte Esterase 3+H, Urine RBC (Auto) 3+H, Urine RBC TNTCH, Urine WBC 5-10H, Urine Squamous Epithelial Cells 0-2, Urine Crystals NONE, Urine Bacteria TRACE, Urine Casts NONE, Urine Mucus NEGATIVE, Urine Culture Indicated NO 12/28/20 04:22: Urine Opiates Screen POSITIVEH, Urine Oxycodone Screen NEGATIVE, Urine Methadone Screen NEGATIVE, Urine Propoxyphene Screen NEGATIVE, Urine Barbiturates Screen NEGATIVE, Ur Tricyclic Antidepressants Screen NEGATIVE, Urine Phencyclidine Screen NEGATIVE, Urine Amphetamines Screen NEGATIVE, Urine Methamphetamines Screen NEGATIVE, Urine Benzodiazepines Screen NEGATIVE, Urine Cocaine Screen NEGATIVE, Urine Cannabinoids Screen NEGATIVE 12/28/20 04:52: Lactic Acid Level 4.63*H 12/28/20 05:41: Blood Gas Puncture Site LEFT RADIAL, Blood Gas Patient Temperature 36, Arterial Blood pH 7.30*L, Arterial Blood Partial Pressure CO2 40, Arterial Blood Partial Pressure O2 22*L, Arterial Blood HCO3 20L, Arterial Blood Total CO2 20.9L, Arterial Blood Oxygen Saturation 17L, Arterial Blood Base Excess -5.9L, Terence Test POSITIVE, Blood Gas Ventilator Setting NO, Blood Gas Inspired Oxygen 2L 12/28/20 06:17: Glucometer 134H Assessment/Plan Assessment/Plan Assessment/Plan hematuria hypotension sepsis anemia secondary to hematuria altered mental status chest pain patient needing central line placed due to hypotension, hematuria. LIkely will need addition of pressors. Patient to have central line placed. Will sign off, call if needed. Procedure: Right internal jugular vein ultrasound-guided central line placement Patient was prepped and draped in a sterile fashion. Timeout was performed. Ultrasound was used to isolate the right internal jugular vein and local anesthetic was infiltrated. A total of 3 mL of 1% lidocaine. Under ultrasound guidance the right internal jugular vein was accessed dark nonpulsatile blood was withdrawn. The wire was inserted through the needle and the needle was removed. 11 blade scalpel was used to make a small skin incision at the insertion point. The dilator was then advanced over the wire and removed. The triple-lumen catheter was inserted over the guidewire and the wire was removed. The catheter was then secured using 3-0 silk suture. All ports were accessed and flushed without difficulty. The area was washed and dried and sterile bandage was applied. Chest x-ray pending CONSTANCE ARCINIEGA DO Dec 28, 2020 07:11
--- NOTE | 2020-12-28 07:15 | NUR ---
0630: DR. ARCINIEGA AT BEDSIDE TO PLACE CENTRAL LINE. RIGHT TRIPLE LUMEN IJ PLACED BY DOCTOR. 0700: DR. ARCINIEGA GAVE OK TO USE CENTRAL LINE.
--- NOTE | 2020-12-28 07:20 | NUR ---
PT'S SBP CONTINUE TO BE IN THE 70'S. DR. KELLEY NOTIFIED. ORDER RECEIVED TO START LEVOPHED AND TITRATE PER PROTOCOL.
--- NOTE | 2020-12-28 07:34 | Diagnostic Imaging Report ---
EXAMINATION: Chest 1 view HISTORY: Central line placement COMPARISON: 12/28/2020 FINDINGS: Right internal jugular central venous catheter tip terminates in the superior vena cava. There is septal line thickening and julio-vascular thickening with a tiny right pleural effusion. No pneumothorax. Heart size is normal. IMPRESSION: 1. Findings most consistent with edema with a tiny right pleural effusion. Dictated by: Dictated on workstation # [id number]
--- NOTE | 2020-12-28 07:38 | Diagnostic Imaging Report ---
EXAMINATION: Chest 1 view HISTORY: Chest pain COMPARISON: 02/07/2020 FINDINGS: The lungs are clear without edema or pneumonia. No pleural effusion or pneumothorax. Heart size is normal. IMPRESSION: 1. Clear lungs. Dictated by: Dictated on workstation # [id number]
[2020-12-28 08:04] LABS: ALBUMIN 3.2 GM/DL (3.2-4.5)
[2020-12-28 08:05] LABS: POTASSIUM 5.1 MMOL/L (3.6-5.0)
[2020-12-28 08:06] LABS: CALCIUM 7.5 MG/DL (8.5-10.1)
[2020-12-28 08:07] LABS: TOTAL PROTEIN 5.7 GM/DL (6.4-8.2)
[2020-12-28 08:09] LABS: BILIRUBIN,TOTAL 0.5 MG/DL (0.1-1.0)
[2020-12-28 08:10] LABS: CREATININE SERUM 2.5 MG/DL (0.60-1.30)
[2020-12-28 08:31] VITALS: BP 99/61
[2020-12-28 08:45] VITALS: BP 99/43
--- NOTE | 2020-12-28 08:52 | Consultation-Cardiology ---
HPI-Cardiology Cardiology Consultation Date of Consultation 12/28/20 Date of Admission Time Seen by Provider: 08:46 Indication: non-ST elevation myocardial infarction HPI 85 years old gentleman with history of coronary artery disease, had a recent myocardial infarction treated conservatively. Came into the emergency room with generalized weakness and confusion, abdominal pain, noted to have EKG changes with ST depression in the anterolateral leads. Had elevated troponin and acute renal failure and sepsis. Severe anemia. On my evaluation he responds by opening his eyes, does not respond appropriately to any question. Does not have any complain at this point. Home Medications & Allergies Allergies: Uncoded Allergies: pneumonia vaccine (Adverse Reaction, Unknown, 02/06/20) Home Medication List Reviewed: Yes QWL-Dzkpvw-Murpdj Hx Patient Social History Marital Status: Employed/Student: retired Recreational Drug Use: No Smoking Status: Current Everyday Smoker 2nd Hand Smoke Exposure: Yes Recent Hopitalizations: No Immunizations Up To Date Tetanus Booster (TDap): Unknown Date of Influenza Vaccine: Aug 21, 2019 Past Medical History Discussed below Family Medical History Significant Family History: No Pertinent Family Hx Family Medical Hx Noncontributory Family History: Patient reports no known family medical history. Review of Systems-General Review of Systems Constitutional: other (MINIMAL INFORMATION FROM PT, unable to provide review of systems) EENTM: see HPI, no symptoms reported Respiratory: no symptoms reported, see HPI Cardiovascular: see HPI Gastrointestinal: no symptoms reported, see HPI Genitourinary: see HPI Musculoskeletal: no symptoms reported, see HPI Skin: no symptoms reported, see HPI Psychiatric/Neurological: No Symptoms Reported, See HPI Reviewed Test Results Reviewed Test Results Lab Laboratory Tests Test 12/28/20 03:05 12/28/20 03:45 12/28/20 04:22 12/28/20 04:52 Range/Units White Blood Count 15.1 H 4.3-11.0 10^3/uL Red Blood Count 2.76 L 4.30-5.52 10^6/uL Hemoglobin 6.2 *L 13.3-17.7 g/dL Hematocrit 21 L 40-54 % Mean Corpuscular Volume 75 L 80-99 fL Mean Corpuscular Hemoglobin 22 L 25-34 pg Mean Corpuscular Hemoglobin Concent 30 L 32-36 g/dL Red Cell Distribution Width 14.8 H 10.0-14.5 % Platelet Count 269 130-400 10^3/uL Mean Platelet Volume 11.9 9.0-12.2 fL Immature Granulocyte % (Auto) 1 % Neutrophils (%) (Auto) 83 H 42-75 % Lymphocytes (%) (Auto) 10 L 12-44 % Monocytes (%) (Auto) 5 0-12 % Eosinophils (%) (Auto) 1 0-10 % Basophils (%) (Auto) 1 0-10 % Neutrophils # (Auto) 12.5 H 1.8-7.8 10^3/uL Lymphocytes # (Auto) 1.5 1.0-4.0 10^3/uL Monocytes # (Auto) 0.8 0.0-1.0 10^3/uL Eosinophils # (Auto) 0.2 0.0-0.3 10^3/uL Basophils # (Auto) 0.1 0.0-0.1 10^3/uL Immature Granulocyte # (Auto) 0.1 0.0-0.1 10^3/uL Neutrophils % (Manual) 85 % Lymphocytes % (Manual) 9 % Monocytes % (Manual) 5 % Eosinophils % (Manual) 1 % Polychromasia SLIGHT Hypochromasia SLIGHT Anisocytosis SLIGHT Microcytosis SLIGHT Elliptocytes SLIGHT Schistocytes SLIGHT Prothrombin Time 14.4 12.2-14.7 SEC INR Comment 1.1 0.8-1.4 Activated Partial Thromboplast Time 33 24-35 SEC Sodium Level 142 135-145 MMOL/L Potassium Level 4.8 3.6-5.0 MMOL/L Chloride Level 105 98-107 MMOL/L Carbon Dioxide Level 16 L 21-32 MMOL/L Anion Gap 21 H 5-14 MMOL/L Blood Urea Nitrogen 58 H 7-18 MG/DL Creatinine 2.86 H 0.60-1.30 MG/DL Estimat Glomerular Filtration Rate 21 BUN/Creatinine Ratio 20 Glucose Level 160 H 70-105 MG/DL Lactic Acid Level 7.33 *H 4.63 *H 0.50-2.00 MMOL/L Calcium Level 8.5 8.5-10.1 MG/DL Corrected Calcium 8.7 8.5-10.1 MG/DL Magnesium Level 2.7 H 1.6-2.4 MG/DL Total Bilirubin 0.4 0.1-1.0 MG/DL Aspartate Amino Transf (AST/SGOT) 12 5-34 U/L Alanine Aminotransferase (ALT/SGPT) 12 0-55 U/L Alkaline Phosphatase 93 40-136 U/L Total Creatine Kinase 58 30-200 U/L Creatine Kinase MB 3.3 <6.6 NG/ML Myoglobin 284.2 H 10.0-92.0 NG/ML Troponin I 0.102 H <0.028 NG/ML B-Type Natriuretic Peptide 2510.0 H <100.0 PG/ML Total Protein 6.9 6.4-8.2 GM/DL Albumin 3.8 3.2-4.5 GM/DL Amylase Level 40 25-125 U/L Lipase 25 8-78 U/L Serum Alcohol < 10 <10 MG/DL Urine Color RED H Urine Clarity TURBID Urine pH 7.0 5-9 Urine Specific [place] 1.015 L 1.016-1.022 Urine Protein 3+ H NEGATIVE Urine Glucose (UA) 3+ H NEGATIVE Urine Ketones 1+ H NEGATIVE Urine Nitrite POSITIVE H NEGATIVE Urine Bilirubin NEGATIVE NEGATIVE Urine Urobilinogen 4.0 < = 1.0 MG/DL Urine Leukocyte Esterase 3+ H NEGATIVE Urine RBC (Auto) 3+ H NEGATIVE Urine RBC TNTC H /HPF Urine WBC 5-10 H /HPF Urine Squamous Epithelial Cells 0-2 /HPF Urine Crystals NONE /LPF Urine Bacteria TRACE /HPF Urine Casts NONE /LPF Urine Mucus NEGATIVE /LPF Urine Culture Indicated NO Urine Opiates Screen POSITIVE H NEGATIVE Urine Oxycodone Screen NEGATIVE NEGATIVE Urine Methadone Screen NEGATIVE NEGATIVE Urine Propoxyphene Screen NEGATIVE NEGATIVE Urine Barbiturates Screen NEGATIVE NEGATIVE Ur Tricyclic Antidepressants Screen NEGATIVE NEGATIVE Urine Phencyclidine Screen NEGATIVE NEGATIVE Urine Amphetamines Screen NEGATIVE NEGATIVE Urine Methamphetamines Screen NEGATIVE NEGATIVE Urine Benzodiazepines Screen NEGATIVE NEGATIVE Urine Cocaine Screen NEGATIVE NEGATIVE Urine Cannabinoids Screen NEGATIVE NEGATIVE Test 12/28/20 05:41 12/28/20 06:17 12/28/20 07:42 Range/Units Blood Gas Puncture Site LEFT RADIAL Blood Gas Patient Temperature 36 Arterial Blood pH 7.30 *L 7.37-7.43 Arterial Blood Partial Pressure CO2 40 35-45 MMHG Arterial Blood Partial Pressure O2 22 *L 79-93 MMHG Arterial Blood HCO3 20 L 23-27 MMOL/L Arterial Blood Total CO2 20.9 L 21.0-31.0 MMOL/L Arterial Blood Oxygen Saturation 17 L 94-100 % Arterial Blood Base Excess -5.9 L -2.5-2.5 MMOL/L Terence Test POSITIVE Blood Gas Ventilator Setting NO Blood Gas Inspired Oxygen 2L Glucometer 134 H 70-110 MG/DL Sodium Level 140 135-145 MMOL/L Potassium Level 5.1 H 3.6-5.0 MMOL/L Chloride Level 109 H 98-107 MMOL/L Carbon Dioxide Level 18 L 21-32 MMOL/L Anion Gap 13 5-14 MMOL/L Blood Urea Nitrogen 53 H 7-18 MG/DL Creatinine 2.50 H 0.60-1.30 MG/DL Estimat Glomerular Filtration Rate 25 BUN/Creatinine Ratio 21 Glucose Level 159 H 70-105 MG/DL Lactic Acid Level 3.72 *H 0.50-2.00 MMOL/L Calcium Level 7.5 L 8.5-10.1 MG/DL Corrected Calcium 8.1 L 8.5-10.1 MG/DL Total Bilirubin 0.5 0.1-1.0 MG/DL Aspartate Amino Transf (AST/SGOT) 31 5-34 U/L Alanine Aminotransferase (ALT/SGPT) 22 0-55 U/L Alkaline Phosphatase 80 40-136 U/L Troponin I 2.251 *H <0.028 NG/ML Total Protein 5.7 L 6.4-8.2 GM/DL Albumin 3.2 3.2-4.5 GM/DL Physical Exam Physical Exam Vital Signs Vital Signs - First Documented Capillary Refill : Less Than 3 Seconds Height, Weight, BMI Height: '" Weight: lbs. oz. kg; 23.00 BMI Method: General Appearance: Anxious, Other (opening his eyes, not following commands or responding to questions) HEENT: Pale Conjunctivae (L), Pale Conjunctivae (R) Neck: Full Range of Motion, Non Tender, Supple Respiratory: Normal Breath Sounds Cardiovascular: Regular Rate, Rhythm, Systolic Murmur Gastrointestinal: Soft Extremity: Normal Capillary Refill, Normal Inspection, Non Tender Neurologic/Psychiatric: Alert, No Motor/Sensory Deficits (GROSSLY INTACT--PT MOVING ALL EXTREMITIES EQUALLY, BUT NOT FOLLOWING COMMANDS, VERY AGITATED. SPEECH IS CLEAR. ) Skin: Cool; No Diaphoresis Lymphatic: No Adenopathy A/P-Cardiology Admission Diagnosis Non-ST elevation myocardial infarction Sepsis Hypotension Anemia Assessment/Plan Non-ST elevation myocardial infarction, I recommend conservative management for now due to his altered mental status and renal failure and severe anemia, patient cannot tolerate IV contrast or aggressive anticoagulation. Awaiting for transfusion and monitor H&H closely. Coronary artery disease, had myocardial infarction in January 2020, treated conservatively due to his comorbid conditions, has been followed by Dr. Gillespie Acute on chronic renal failure, worsening renal function, receiving IV fluid, continue to monitor renal function closely. Acute change in mental status, workup is in progress. Managed by primary care team Sepsis, workup for the underlying cause is in progress. Managed by primary care team Hematuria, history of TURP, UTI, managed by primary care team Anemia, awaiting for blood transfusion. Monitor H&H, questionable GI loss Diabetes mellitus, followed and managed by primary care physician Hypertension, currently hypotensive shock secondary to hypovolemia, sepsis and non-ST VA, repeat 2-D echo. Continue with IV fluid and monitor Hyperlipidemia, monitor lipids VALERIA COLEMAN MD Dec 28, 2020 8:51 am
[2020-12-28] MEDS: NS IV 1000 ML 1,000 ML IV SCH ×4 (08:53→22:27)
[2020-12-28] MEDS: PANTOPRAZOLE 40 MG (PROTONIX) VIAL IV SCH (08:53)
[2020-12-28] MEDS ORDERED: ASPIRIN E.C. 81 MG (ECOTRIN) TAB PO SCH (09:00)
[2020-12-28] MEDS ORDERED: PANTOPRAZOLE 40 MG (PROTONIX) VIAL IV SCH (09:00)
[2020-12-28 10:00] VITALS: BP 116/65
--- NOTE | 2020-12-28 10:37 | History & Physical-Hospitalist ---
BERHANE BURROUGHS,MED STUDENT 12/28/20 1037: History of Present Illness HPI/Chief Complaint Patient is an 85yo male with a PMH of CAD, HTN, HLD and NIDDM presenting to [facility] ED via POV with son due to agitation, confusion, and hematuria. Due to his clinical condition he is unable to give a reliable history. He wears supplemental oxygen at home and arrived with his O2 tank, but was not wearing it. He complained of nausea on arrival, but was unable to answer whether he was having any pain. He was found to be hypotensive with severe anemia. He received 1 unit of PRBC, and was given Ativan and Morphine. He has a history of leaving against medical advice on multiple occasions. Source: RN/, old records Exam Limitations: clinical condition Date Seen 12/28/20 Attending Physician Kike Oliver MD PCP No,Local Physician Referring Physician Date of Admission Dec 28, 2020 at 04:20 Home Medications & Allergies Home Medications Reviewed patient Home Medication Reconciliation performed by pharmacy medication reconciliations spray technician and/or nursing. Patients Allergies have been reviewed. Allergies Allergies Uncoded Allergies pneumonia vaccine ( Adverse Reaction, Unknown, 02/06/20) Past Igwkzim-Czxsxo-Fbgiqf Hx Patient Social History Marrital Status: Employed/Student: retired Alcohol Use: Denies Use Recreational Drug Use: No Smoking Status: Current Everyday Smoker 2nd Hand Smoke Exposure: Yes Recent Foreign Travel: No Contact w/other who traveled: No Recent Hopitalizations: No Recent Infectious Disease Expo: No Immunizations Up To Date Tetanus Booster (TDap): Unknown Date of Influenza Vaccine: Aug 21, 2019 Seasonal Allergies Seasonal Allergies: No Past Medical History Surgeries: Abdominal, Prostatectomy, Transurethral Resection Cardiac: Coronary Artery Disease, High Cholesterol, Hypertension Genitourinary: Benign Prostatic Hyperpl, Prostate Problems Endocrine: Diabetes, Non-Insulin dep History of Blood Disorders: No Adverse Reaction to Blood Vance: No Family History Patient reports no known family medical history. No Pertinent Family Hx ALL PAST MEDICAL HISTORY IS FROM OLD CHART Review of Systems ROS-Unable to Obtain: Unable to obtain due to clinical condition Physical Exam Physical Exam Vital Signs Vital Signs - First Documented Capillary Refill : Less Than 3 Seconds Height, Weight, BMI Height: '" Weight: lbs. oz. kg; 23.00 BMI Method: General Appearance: No Apparent Distress, WD/WN HEENT: Pharynx Normal, Moist Mucous Membranes Respiratory: Lungs Clear, No Accessory Muscle Use, No Respiratory Distress Cardiovascular: Regular Rate, Rhythm, Normal Peripheral Pulses Gastrointestinal: Normal Bowel Sounds, Soft; No Distended Extremity: Normal Capillary Refill, No Pedal Edema Neurologic/Psychiatric: No Motor/Sensory Deficits, Disoriented Skin: Normal Color, Warm/Dry Results Results/Procedures Labs Laboratory Tests 12/28/20 03:05 12/28/20 07:42 Patient resulted labs reviewed. Assessment/Plan Assessment and Plan Septic shock with UTI On Rocephin Cultures pending Receiving IV fluids Anemia with hematuria Receiving 2nd unit of PRBC Continue to monitor Hgb Plan for CT abdomen and pelvis once PRBC transfused Urology consulted Acute renal failure On IV fluids Continue to monitor renal function NSTEMI Cardiology consulted, recommend conservative management Hx of NE in January 2020, treated conservatively, follows with Dr. Jose Miguel POST Hold home medications Severe sepsis with UTI -Start Rocephin -Suarez cultures pending -IVF -Give another liter of LR Hypotension -SBP is 61/44 -Consult [facility] for central line. -Notified at 0550 -Give another liter of LR -Transfuse 2 units of PRBC Anemia with hematuria -Check CT of abdomen and pelvis without contrast -will give 2 units of PRBC -monitor -Consult surgery and urology Acute renal failure with metabolic lactic acidosis -Monitor -IVF Severe dehydration -IVF Metabolic encephalopathy -s/p Ativan and Morphine in ED -Check CT of head KIKE OLIVER MD 12/28/20 1347: History of Present Illness Time Seen by a Provider: 11:30 Past Hmjffvm-Vuywvk-Rrlnzk Hx Past Med/Social Hx: Reviewed Nursing Past Med/Soc Hx Family History Reviewed Nursing Family Hx Patient reports no known family medical history. Review of Systems Constitutional: see HPI Physical Exam Physical Exam General Appearance: No Apparent Distress, Chronically ill, Thin, Other (ill appearing) HEENT: PERRL/EOMI, Moist Mucous Membranes; No Scleral Icterus (L), No Scleral Icterus (R) Neck: Normal Inspection, Supple, Other (central line in place) Respiratory: Lungs Clear, No Accessory Muscle Use, Other (nasal cannula) Cardiovascular: Regular Rate, Rhythm, No Murmur, Normal Peripheral Pulses Gastrointestinal: Normal Bowel Sounds, Non Tender, Soft; No Distended Genital/Rectal: Other (mcdermott in place with bright red blood ~200ml urine in bag) Extremity: Normal Capillary Refill, Non Tender, No Pedal Edema Neurologic/Psychiatric: Alert; No Aphasia, No Facial Droop; Other (orientation improved and oriented to major details and most minor as well regarding stay) Skin: Normal Color, Warm/Dry Results Results/Procedures Imaging: Reviewed Imaging Report Imaging [facility]. [place], [place] NAME: DIANE HUMMEL [facility] REC#: [id number] PT STATUS: ADM IN : 1935 PHYSICIAN: SHA KNOX DO ADMIT DATE: 12/28/20/ICU Signed Date of Exam:12/28/20 CHEST 1 VIEW, AP/PA ONLY EXAMINATION: Chest 1 view HISTORY: Chest pain COMPARISON: 02/07/2020 FINDINGS: The lungs are clear without edema or pneumonia. No pleural effusion or pneumothorax. Heart size is normal. IMPRESSION: 1. Clear lungs. Dictated by: Dictated on workstation # [id number] Dict: 12/28/20 0737 Trans: 12/28/20 0913 [facility] [id number] Interpreted by: LILA WARD MD Electronically signed by: LILA WARD MD 12/28/20 0913 Assessment/Plan Admission Diagnosis Septic Shock Admission Status: Inpatient Order (span 2 midnights) Reason for Inpatient Admission: see below Assessment and Plan Pt presented to the ER due to chest pain and SOB. He states his symptoms started around 3pm yesterday. He states it felt like gas was stuck in his lungs and he couldn't take a deep breath. He has taken gas reliever for this in the past but it doesn't seem to help. He was brought to the ER by his son for this. This morning he does feel better and he's breathing better. He was noted to have significant hematuria and labs found him to be anemia witha Hgb of 6.2. UA was concerning for a UTI and lactic acid was over 7 with hypotension. He was admitted to the ICU for septic shock. He is being treated with broad spectrum antibiotics for this and pRBCs have been ordered for his anemia and blood pressure support along with IVF resuscitation. Central line was placed this morning by surgery as well. CT Abd.Pelvis ordered to evaluate for secondary source of bleed. Troponin is elevated but after discussion with Cardiology conservative management is recommended at this time due to JUANCARLOS, anemia, and sepsis as it would be unsafe to expose to contrast given renal function and not being able to deploy stent due to hematuia and anemia. I discussed this with patient and my concern about his overall guarded prognosis given these complications. We did discuss his code status and he requests to be a full code. When asked who would make his decisions if he were unable to though he stated "Robert would take care of him." Will continue to monitor UOP and renal function. Urology consulted for hematuria. Appreciate consultants help with this complex case. Diagnosis/Problems Diagnosis/Problems (1) COPD (chronic obstructive pulmonary disease) Status: Chronic Qualifiers: COPD type: unspecified COPD Qualified Codes: J44.9 - Chronic obstructive pulmonary disease, unspecified (2) Non-insulin dependent type 2 diabetes mellitus Status: Chronic (3) Essential (primary) hypertension Status: Chronic (4) HLD (hyperlipidemia) Status: Chronic Qualifiers: Hyperlipidemia type: unspecified Qualified Codes: E78.5 - Hyperlipidemia, unspecified (5) CAD (coronary artery disease) Qualifiers: Coronary Disease-Associated Artery/Lesion type: [place] artery [place] vs. transplanted heart: [place] heart Associated angina: without angina Qualified Codes: I25.10 - Atherosclerotic heart disease of [place] coronary artery without angina pectoris (6) BPH (benign prostatic hyperplasia) Status: Chronic Qualifiers: Lower urinary tract symptom presence: symptoms present Lower urinary tract symptom detail: incomplete bladder emptying Qualified Codes: N40.1 - Benign prostatic hyperplasia with lower urinary tract symptoms; R39.14 - Feeling of i ncomplete bladder emptying (7) Chronic respiratory failure Status: Chronic Qualifiers: Respiratory failure complication: hypoxia Qualified Codes: J96.11 - Chronic respiratory failure with hypoxia (8) Septic shock Status: Acute (9) Severe anemia Status: Acute (10) NSTEMI (non-ST elevated myocardial infarction) Status: Acute (11) UTI (urinary tract infection) Status: Acute Qualifiers: Urinary tract infection type: acute cystitis Hematuria presence: with hematuria Qualified Codes: N30.01 - Acute cystitis with hematuria (12) Renal failure Status: Acute Qualifiers: Renal failure chronicity: acute on chronic Chronic kidney disease stage: stage 3 (moderate) 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 I reviewed and verified all information documented by the medical student and made modifications to such information, when appropriate. I personally performed the physical exam and medical decision making. Kike Oliver, Dec 28, 2020,14:01 BERHANE BURROUGHS,GUANCAO STUDENT Dec 28, 2020 10:37 KIKE OLIVER MD Dec 28, 2020 13:47
[2020-12-28 12:40] LABS: ABSOLUTE RETIC # 43 10e9/uL (24-90); BASOPHILS # (AUTO) 0.1 10^3/uL (0.0-0.1); BASOPHILS % (AUTO) 1 % (0-10); EOSINOPHILS # (AUTO) 0.1 10^3/uL (0.0-0.3); EOSINOPHILS % (AUTO) 1 % (0-10); HEMATOCRIT 27 % (40-54); LYMPHOCYTES # (AUTO) 2.2 10^3/uL (1.0-4.0); LYMPHOCYTES % (AUTO) 19 % (12-44); MEAN CORPUSCULAR HEMOGLOBIN 25 pg (25-34); MEAN CORPUSCULAR HGB CONC 31 g/dL (32-36); MEAN CORPUSCULAR VOLUME 79 fL (80-99); MEAN PLATELET VOLUME 11.7 fL (9.0-12.2); MONOCYTES % (AUTO) 9 % (0-12); NEUTROPHILS # (AUTO) 8.5 10^3/uL (1.8-7.8); NEUTROPHILS % (AUTO) 71 % (42-75); PLATELET COUNT 197 10^3/uL (130-400); RETICULOCYTE % 1.26 % (0.50-2.40)
--- NOTE | 2020-12-28 12:46 | Diagnostic Imaging Report ---
EXAMINATION: CT head without contrast. TECHNIQUE: Multiple contiguous axial images were obtained through the brain without the use of intravenous contrast. All CT scans use one or more of the following dose optimizing techniques: automated exposure control, MA and/or KvP adjustment based on a patient size and exam type, or iterative reconstruction. HISTORY: Lethargy and confusion COMPARISON: None available. FINDINGS: The kingsley-white matter differentiation is normal. No mass effect or midline shift. There is age related cerebral atrophy with ex vacuo dilation of the ventricles. Periventricular white matter hypoattenuation is in keeping with chronic small vessel ischemic changes. Basilar cisterns are patent. There are no intra- or extra-axial fluid collections. There is no intracranial hemorrhage. The orbits are normal. Paranasal sinuses are normal. Mastoid air cells are clear. No soft tissue abnormality is seen. No osseus lesions or fractures are seen. IMPRESSION: 1. No acute intracranial abnormality. Dictated by: Dictated on workstation # [id number]
--- NOTE | 2020-12-28 12:47 | Diagnostic Imaging Report ---
EXAMINATION: CT Abdomen Pelvis without contrast. TECHNIQUE: Multiple contiguous axial images were obtained through the abdomen and pelvis without the use of intravenous contrast. All CT scans use one or more of the following dose optimizing techniques: automated exposure control, MA and/or KvP adjustment based on a patient size and exam type, or iterative reconstruction. HISTORY: Hematuria, abdominal pain COMPARISON: 02/08/2020 FINDINGS: Limited views of the lower thorax show small bilateral pleural effusions with overlying atelectasis. Coronary arteries are calcified. The liver is normal without focal lesion. There is no biliary ductal dilation. Gallbladder wall is edematous. There is sludge in the gallbladder. There is john hepatis stranding and edema. Pancreas is normal. Spleen is normal. Adrenal glands are normal. There are simple cysts in the kidneys. There is no hydronephrosis. Bladder is decompressed with a Palencia catheter. There is a diverticulum adjacent to the right ureter with high attenuation within diverticulum suggestive of hemorrhage. Visualized bowel is normal in caliber without obstruction or inflammation. Small amount of free fluid is present. No free air. No abdominal or pelvic lymphadenopathy. Aorta is normal in caliber without aneurysm. There are no suspicious osseus lesions. IMPRESSION: 1. Bladder diverticulum distended with high attenuating material suggestive of hemorrhage. Presence of hemorrhage localized with diverticulum raises the concern for a tumor arising from the diverticulum. 2. Gallbladder wall thickening with sludge, correlate for evidence of cholecystitis clinically. Dictated by: Dictated on workstation # [id number]
[2020-12-28 12:50] LABS: HEMOGLOBIN 8.5 g/dL (13.3-17.7)
[2020-12-28 13:04] LABS: ELLIPT/OVALOCYTES MODERATE; EOSINOPHILS % (MANUAL) 2 %; HYPERSEGMENTED NEUT SLIGHT; HYPOCHROMASIA MODERATE; LYMPHOCYTES % (MANUAL) 23 %; MONOCYTES % (MANUAL) 7 %; NEUTROPHILS % (MANUAL) 68 %; POIKILOCYTOSIS SLIGHT; POLYCHROMASIA SLIGHT
[2020-12-28 13:05] LABS: BURR CELLS SLIGHT
[2020-12-28 23:11] LABS: BASOPHILS # (AUTO) 0.1 10^3/uL (0.0-0.1); BASOPHILS % (AUTO) 1 % (0-10); EOSINOPHILS # (AUTO) 0.6 10^3/uL (0.0-0.3); EOSINOPHILS % (AUTO) 5 % (0-10); HEMATOCRIT 26 % (40-54); HEMOGLOBIN 8.2 g/dL (13.3-17.7); LYMPHOCYTES # (AUTO) 2.4 10^3/uL (1.0-4.0); LYMPHOCYTES % (AUTO) 17 % (12-44); MEAN CORPUSCULAR HEMOGLOBIN 25 pg (25-34); MEAN CORPUSCULAR HGB CONC 32 g/dL (32-36); MEAN CORPUSCULAR VOLUME 79 fL (80-99); MEAN PLATELET VOLUME 12.3 fL (9.0-12.2); MONOCYTES # (AUTO) 1.1 10^3/uL (0.0-1.0); MONOCYTES % (AUTO) 8 % (0-12); NEUTROPHILS # (AUTO) 9.6 10^3/uL (1.8-7.8); NEUTROPHILS % (AUTO) 69 % (42-75); PLATELET COUNT 195 10^3/uL (130-400); WHITE BLOOD COUNT 13.9 10^3/uL (4.3-11.0)
[2020-12-29] MEDS ORDERED: NOREPINEPHRINE 4 MG/250 ML 250 ML IV ONE (00:09)
[2020-12-29] MEDS ORDERED: NOREPINEPHRINE 4 MG/250 ML 250 ML IV SCH (00:15)
[2020-12-29 00:19] VITALS: BP 116/65
[2020-12-29 04:17] LABS: BASOPHILS # (AUTO) 0.1 10^3/uL (0.0-0.1); BASOPHILS % (AUTO) 0 % (0-10); EOSINOPHILS # (AUTO) 0.8 10^3/uL (0.0-0.3); EOSINOPHILS % (AUTO) 5 % (0-10); HEMATOCRIT 26 % (40-54); HEMOGLOBIN 8.1 g/dL (13.3-17.7); LYMPHOCYTES # (AUTO) 2.8 10^3/uL (1.0-4.0); LYMPHOCYTES % (AUTO) 17 % (12-44); MEAN CORPUSCULAR HEMOGLOBIN 25 pg (25-34); MEAN CORPUSCULAR HGB CONC 31 g/dL (32-36); MEAN CORPUSCULAR VOLUME 79 fL (80-99); MEAN PLATELET VOLUME 11.8 fL (9.0-12.2); MONOCYTES # (AUTO) 1.4 10^3/uL (0.0-1.0); MONOCYTES % (AUTO) 9 % (0-12); NEUTROPHILS # (AUTO) 11.6 10^3/uL (1.8-7.8); NEUTROPHILS % (AUTO) 69 % (42-75); PLATELET COUNT 189 10^3/uL (130-400); WHITE BLOOD COUNT 16.7 10^3/uL (4.3-11.0)
--- NOTE | 2020-12-29 04:33 | Pulmonary Progress Note ---
Subjective Time Seen by a Provider: 04:28 Subjective/Events-last exam Pt is on Levophed. MS is improved. Sepsis Event Evaluation Height, Weight, BMI Height: '" Weight: lbs. oz. kg; 23.00 BMI Method: Focused Exam Lactate Level 12/28/20 15:50: Lactic Acid Level 2.36*H 12/28/20 18:26: Lactic Acid Level 2.16*H 12/28/20 23:00: Lactic Acid Level 1.43 Exam Exam Vital Signs Date Time Temp Pulse Resp B/P (MAP) Pulse Ox O2 Delivery O2 Flow Rate FiO2 12/29/20 00:19 72 116/65 12/29/20 00:00 Nasal Cannula 2.00 12/28/20 23:00 70 12 93/49 (64) 94 Nasal Cannula 2.00 12/28/20 22:00 68 15 86/43 (57) 96 Nasal Cannula 2.00 12/28/20 21:00 67 28 112/53 (72) 98 Nasal Cannula 2.00 12/28/20 20:00 Nasal Cannula 2.00 12/28/20 20:00 70 23 101/52 (68) 92 Nasal Cannula 2.00 12/28/20 19:52 72 12/28/20 19:38 36.2 70 16 114/49 (70) 96 Nasal Cannula 2.00 12/28/20 19:00 65 24 115/56 (75) 94 Nasal Cannula 2.00 12/28/20 18:00 66 15 99/51 (67) 96 Nasal Cannula 2.00 12/28/20 17:00 73 26 125/69 (87) 97 Nasal Cannula 2.00 12/28/20 16:00 78 25 106/62 (77) 96 Nasal Cannula 2.00 12/28/20 16:00 Nasal Cannula 2.00 12/28/20 15:00 63 10 110/55 (73) 96 Nasal Cannula 2.00 12/28/20 14:00 74 19 116/58 (77) 94 Nasal Cannula 2.00 12/28/20 13:00 69 11 106/56 (73) 96 Nasal Cannula 2.00 12/28/20 12:43 72 12/28/20 12:00 35.8 12/28/20 12:00 80 11 118/59 (78) 97 Nasal Cannula 2.00 12/28/20 12:00 Nasal Cannula 2.00 12/28/20 11:00 74 18 118/62 (80) 89 Nasal Cannula 2.00 12/28/20 10:00 77 12 113/60 (77) 95 Nasal Cannula 2.00 12/28/20 10:00 35.8 78 12 116/65 95 Nasal Cannula 2.00 12/28/20 09:00 78 9 99/59 (72) 98 Nasal Cannula 2.00 12/28/20 08:45 36.4 81 14 99/43 96 Nasal Cannula 2.00 12/28/20 08:31 36.4 88 10 99/61 Nasal Cannula 2.00 12/28/20 08:00 80 10 83/44 (57) 93 Nasal Cannula 2.00 12/28/20 08:00 Nasal Cannula 2.00 12/28/20 07:30 35.7 12/28/20 07:04 35.8 89 16 79/53 96 Nasal Cannula 2.00 12/28/20 07:00 100 12/28/20 07:00 82 13 87/53 (64) 94 Nasal Cannula 2.00 12/28/20 06:15 87 15 79/53 (62) 95 Nasal Cannula 2.00 12/28/20 06:00 36.0 86 16 78/31 97 Nasal Cannula 2.00 12/28/20 05:45 92 20 78/31 (47) 99 Nasal Cannula 2.00 12/28/20 05:44 36.0 93 14 114/86 98 Nasal Cannula 2.00 12/28/20 05:30 95 20 82/37 (52) 99 Nasal Cannula 2.00 12/28/20 05:23 98 12/28/20 05:18 36.0 91 18 114/86 (95) 98 Nasal Cannula 2.00 12/28/20 05:02 36.6 91 18 106/55 95 Nasal Cannula 2.00 I & O 12/29/20 07:00 Intake Total 1200 ml Output Total 825 ml Balance 375 ml Height & Weight Height: '" Weight: lbs. oz. kg; 23.00 BMI Method: General Appearance: No Apparent Distress, Chronically ill, Thin, Other (ill appearing) HEENT: PERRL/EOMI, Moist Mucous Membranes; No Scleral Icterus (L), No Scleral Icterus (R) Neck: Normal Inspection, Supple, Other (central line in place) Respiratory: Lungs Clear, No Accessory Muscle Use, Other (nasal cannula) Cardiovascular: Regular Rate, Rhythm, No Murmur, Normal Peripheral Pulses Capillary Refill: Less Than 3 Seconds Gastrointestinal: non tender, soft, no organomegaly Extremity: Normal Capillary Refill, Non Tender, No Pedal Edema Neurologic/Psychiatric: Alert; No Aphasia, No Facial Droop; Other (orientation improved and oriented to major details and most minor as well regarding stay) Skin: Normal Color, Warm/Dry Lymphatic: No Adenopathy Results Lab Laboratory Tests 12/28/20 03:05 12/28/20 07:42 12/28/20 12:22 12/28/20 23:00 Assessment/Plan Assessment/Plan Severe sepsis with UTI -Start Rocephin -Suarez cultures pending -IVF -Give another liter of LR Hypotension - -Currently on Levophed -Give another liter of LR -s/p 2 units of PRBC Anemia with hematuria s/p 2 units of PRBC -CT of abdomen and pelvis -- shows bladder diverticulum with mass -Surgery is following -monitor Metabolic acidosis -Give 2 amps of bicarb -Give a liter bolus of LR Acute renal failure with metabolic lactic acidosis -Monitor -IVF Severe dehydration -IVF Metabolic encephalopathy TABATHA KELLEY DO Dec 29, 2020 04:33
[2020-12-29 04:36] LABS: ALBUMIN 2.9 GM/DL (3.2-4.5)
[2020-12-29 04:38] LABS: CALCIUM 7.2 MG/DL (8.5-10.1)
[2020-12-29 04:39] LABS: TOTAL PROTEIN 5.1 GM/DL (6.4-8.2)
[2020-12-29 04:41] LABS: BILIRUBIN,TOTAL 0.3 MG/DL (0.1-1.0)
[2020-12-29 04:42] LABS: CREATININE SERUM 2.37 MG/DL (0.60-1.30); PHOSPHORUS 3.7 MG/DL (2.3-4.7)
[2020-12-29 04:45] LABS: MAGNESIUM 2.2 MG/DL (1.6-2.4)
[2020-12-29] MEDS ORDERED: LACTATED RINGERS 1,000 ML IV SCH (04:45)
[2020-12-29] MEDS ORDERED: SODIUM BICARB 8.4% 50 MEQ/50 ML VIAL IV ONE (04:45)
[2020-12-29] MEDS: LACTATED RINGERS 1,000 ML IV SCH ×4 (06:26→19:19)
[2020-12-29] MEDS: cefTRIAXone 1,000 MG/SWFI 10 ML IV PUSH IV SCH ×2 (06:26)
--- NOTE | 2020-12-29 08:44 | Diagnostic Imaging Report ---
EXAMINATION: Chest 1 view HISTORY: Acute coronary syndrome COMPARISON: 12/28/2020 FINDINGS: Right internal jugular central venous catheter tip terminates in the superior vena cava. There is mild edema. No pleural effusion or pneumothorax. Heart size is mildly enlarged. IMPRESSION: 1. Mild edema. Dictated by: Dictated on workstation # [id number]
[2020-12-29] MEDS: PANTOPRAZOLE 40 MG (PROTONIX) VIAL IV SCH (09:29)
[2020-12-29] MEDS: ASPIRIN E.C. 81 MG (ECOTRIN) TAB PO SCH (09:29)
--- NOTE | 2020-12-29 10:09 | Progress Note - Hospitalist ---
Subjective HPI/CC On Admission Date Seen by Provider: Dec 29, 2020 Patient is an 85yo male with a PMH of CAD, HTN, HLD and NIDDM presenting to [facility] ED via POV with son due to agitation, confusion, and hematuria. Due to his clinical condition he is unable to give a reliable history. He wears supplemental oxygen at home and arrived with his O2 tank, but was not wearing it. He complained of nausea on arrival, but was unable to answer whether he was having any pain. He was found to be hypotensive with severe anemia. He received 1 unit of PRBC, and was given Ativan and Morphine. He has a history of leaving against medical advice on multiple occasions. Subjective/Events-last exam MS much improved this morning, he is more alert and able to converse. Currently on Levophed. Urine still with gross hematuria. Denies any new concerns this morning. Focused Exam Lactate Level 12/28/20 15:50: Lactic Acid Level 2.36*H 12/28/20 18:26: Lactic Acid Level 2.16*H 12/28/20 23:00: Lactic Acid Level 1.43 Objective Exam Vital Signs Vital Signs Date Time Temp Pulse Resp B/P (MAP) Pulse Ox O2 Delivery O2 Flow Rate FiO2 12/29/20 11:00 71 25 106/50 (68) 97 Nasal Cannula 2.00 12/29/20 08:49 37.1 Capillary Refill : Less Than 3 Seconds General Appearance: No Apparent Distress, Chronically ill HEENT: PERRL/EOMI, Pharynx Normal Neck: Non Tender, Supple Respiratory: Lungs Clear, No Accessory Muscle Use, No Respiratory Distress Cardiovascular: Regular Rate, Rhythm, No Edema, Normal Peripheral Pulses Gastrointestinal: Normal Bowel Sounds, Non Tender, Soft Extremity: Non Tender, No Calf Tenderness, No Pedal Edema Neurologic/Psychiatric: Alert, Normal Mood/Affect, Other (More alert, orientation improved) Results/Procedures Lab Laboratory Tests 12/28/20 12:22 12/28/20 23:00 12/29/20 03:55 Patient resulted labs reviewed. 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 Jose Miguel POST Hold home medications BERHANE BURROUGHS,MED STUDENT Dec 29, 2020 10:09
--- NOTE | 2020-12-29 10:54 | Cardiology Progress Note ---
Subjective Date Seen by Provider: Dec 29, 2020 Time Seen by Provider: 10:49 Subjective/Events-last exam Patient was seen at bedside, feeling better, more awake, responding appropriately. Review of Systems General: No Chills, No Night Sweats; Fatigue; No Malaise, No Appetite, No Other HEENT: No Head Aches, No Visual Changes, No Eye Pain, No Ear Pain, No Dysphasia, No Sinus Congestion, No Post Nasal Drip, No Sore Throat, No Other Pulmonary: No Dyspnea, No Cough, No Pleuritic Chest Pain, No Other Cardiovascular: No: Chest Pain, Palpitations, Orthopnea, Paroxysmal Noc. Dyspnea, Edema, Lt Headedness, Other Focused Exam Lactate Level 12/28/20 15:50: Lactic Acid Level 2.36*H 12/28/20 18:26: Lactic Acid Level 2.16*H 12/28/20 23:00: Lactic Acid Level 1.43 Objective-Cardiology Exam Last Set of Vital Signs Vital Signs 12/29/20 12/29/20 08:49 10:00 Temp 37.1 Pulse 70 Resp 15 B/P (MAP) 96/46 (63) Pulse Ox 94 O2 Delivery Nasal Cannula O2 Flow Rate 2.00 Capillary Refill : Less Than 3 Seconds I&O Intake and Output 12/29/20 00:00 Intake Total 3810 ml Output Total 900 ml Balance 2910 ml Intake Oral 700 ml IV Total 3010 ml Other 100 ml Output Urine Total 900 ml General: Alert, Oriented X3, Cooperative HEENT: Atraumatic, PERRLA Neck: Supple, No JVD, No Thyromegaly Lungs: Clear to Auscultation, Normal Air Movement Heart: Regular Rate, Normal S1, Normal S2, Other (systolic murmur at the left sternal border) Abdomen: Normal Bowel Sounds, Soft, No Tenderness, No Hepatosplenomegaly, No Masses Extremities: No Clubbing, No Cyanosis, No Edema, Normal Pulses, No Tenderness/Swelling Skin: No Rashes, No Breakdown, No Significant Lesion Neuro: Normal Gait, Normal Speech, Strength at 5/5 X4 Ext, Normal Tone, Sensation Intact Psych/Mental Status: Mental Status NL, Mood NL Results Lab Laboratory Tests 12/28/20 12:22 12/28/20 23:00 12/29/20 03:55 A/P-Cardiology Admission Diagnosis Non-ST elevation myocardial infarction Sepsis Hypotension Anemia Assessment/Plan Non-ST elevation myocardial infarction, patient has multiple risk factors, we discussed the possibility of cardiac catheterization, 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 Patient requested conservative management. We'll continue to monitor Coronary artery disease, had myocardial infarction in January 2020, treated conservatively due to his comorbid conditions, has been followed by Dr. 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 Managed by primary care team Sepsis, her energy tract infection, improving Hematuria, history of TURP, UTI, managed by primary care team Anemia, continue to monitor H&H Diabetes mellitus, followed and managed by primary care physician Hypertension, status post hypotensive shock, improved, still on pressors at this point Hyperlipidemia, monitor lipids VALERIA COLEMAN MD Dec 29, 2020 10:54
[2020-12-29] MEDS: MUPIROCIN 2% OINT 22 GM (BACTROBAN) TUBE NSEACH SCH ×2 (13:29→19:19)
--- NOTE | 2020-12-29 15:28 | NUR ---
Updated pt's sister, Adriana, at this time.
--- NOTE | 2020-12-29 20:10 | CONSULTATION REPORT ---
DATE OF SERVICE: 12/29/2020 ATTENDING PHYSICIAN: Dr. Oliver. SUMMARY: After reviewing the patient's records, interviewing him and examining him, this is an 85-year-old white man admitted with weakness, confusion, anemia, hypotension and gross hematuria. The patient has been having on and off gross hematuria for the past 2-1/2 years. He had a transurethral resection of his prostate back in 03/2020 at the [facility]. He said he had to go to the emergency room 3 times after it was problems. One time, he had a hard time putting a catheter in him, although here insertion of a catheter by the nursing staff was successful with no problems. He had a noncontrast CT scan of the abdomen and pelvis, which revealed a bladder diverticulum with highly attenuated material suggestive of hemorrhage, question tumor, diverticulum. Kidneys were okay. A catheter was inserted and the urine has been on and off bloody; however, when I looked at it today, it is just concentrated dark yellow. The patient is allergic to pneumonia vaccine. He admits to asthma-COPD, hypercholesterolemia, hypertension, type 2 diabetes, gastroesophageal reflux disease. Medications list was reviewed. Namely, he is on aspirin, baby aspirin every day. He said that he quit smoking in 1977. Also, the charts say everyday smoker. No seasonal allergies. PAST SURGICAL HISTORY: Had some abdominal surgery and TURP. FAMILY HISTORY: Unable to obtain. PHYSICAL EXAMINATION: VITAL SIGNS: Per chart. GENERAL: Well nourished, well developed, in no acute distress. HEENT: Head is normocephalic. ENT unremarkable. NECK: Supple, no bruits. CHEST: Clear, nontender. HEART: Regular rate and rhythm, no murmur. ABDOMEN: Soft, nontender. GENITOURINARY: Examination of the genitalia and the rectal exam were deferred at this point. Examination of the labs revealed H and H on admission of 6.2 and 21. Magnesium of 2.7. Blood sugar 160. Lactic acid 7.33. His troponin was 10.102, with elevated myoglobin and peptide. Urine was positive, both for blood and UTI. IMPRESSION: 1. Gross hematuria. 2. 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 3. Benign prostatic hypertrophy post TURP. 4. Medical illnesses per history. PLAN: Once the urine is nice and clear, maybe tomorrow or Wednesday, we will perform a bedside cystoscopy under local. This was fully explained to the patient. We will go ahead and obtain the consent, so we can proceed any time the OR and I am ready. The plan was fully explained to the patient. Job ID: [id number] DocumentID: [id number] Dictated Date: 12/29/2020 16:12:15 Transformer Maker Date: 12/29/2020 18:14:33 Dictated By: KYA NOGUEIRA MD
[2020-12-30] MEDS: LACTATED RINGERS 1,000 ML IV SCH ×3 (02:01→18:20)
--- NOTE | 2020-12-30 02:02 | NUR ---
Patient with new onset Atrial Fib. E ICU notified. EKG faxed to E ICU. Orders to follow.
[2020-12-30 02:09] LABS: BASOPHILS % (AUTO) 0 % (0-10); EOSINOPHILS # (AUTO) 0.7 10^3/uL (0.0-0.3); EOSINOPHILS % (AUTO) 6 % (0-10); HEMATOCRIT 23 % (40-54); HEMOGLOBIN 7.2 g/dL (13.3-17.7); LYMPHOCYTES # (AUTO) 2.6 10^3/uL (1.0-4.0); LYMPHOCYTES % (AUTO) 20 % (12-44); MEAN CORPUSCULAR HEMOGLOBIN 24 pg (25-34); MEAN CORPUSCULAR HGB CONC 31 g/dL (32-36); MEAN CORPUSCULAR VOLUME 79 fL (80-99); MONOCYTES # (AUTO) 1.2 10^3/uL (0.0-1.0); MONOCYTES % (AUTO) 10 % (0-12); NEUTROPHILS # (AUTO) 8.2 10^3/uL (1.8-7.8); NEUTROPHILS % (AUTO) 64 % (42-75); PLATELET COUNT 167 10^3/uL (130-400); WHITE BLOOD COUNT 12.8 10^3/uL (4.3-11.0)
[2020-12-30] MEDS ORDERED: meTOprolol 5 MG/5 ML (LOPRESSOR) VIAL IV PRN (02:15)
[2020-12-30] MEDS ORDERED: meTOprolol 5 MG/5 ML (LOPRESSOR) VIAL IV ONE (02:15)
[2020-12-30 02:17] LABS: POTASSIUM 4.7 MMOL/L (3.6-5.0)
[2020-12-30 02:18] LABS: CALCIUM 7.2 MG/DL (8.5-10.1)
[2020-12-30 02:23] LABS: CREATININE SERUM 2.26 MG/DL (0.60-1.30); PHOSPHORUS 3.3 MG/DL (2.3-4.7)
[2020-12-30 02:26] LABS: MAGNESIUM 2.1 MG/DL (1.6-2.4)
[2020-12-30] MEDS: cefTRIAXone 1,000 MG/SWFI 10 ML IV PUSH IV SCH ×2 (04:28)
[2020-12-30] MEDS ORDERED: KCL 20 MEQ TAB (K-DUR) PO ONE (05:03)
--- NOTE | 2020-12-30 05:24 | NUR ---
Potassium pulled on wrong patient.
--- NOTE | 2020-12-30 05:31 | Pulmonary Progress Note ---
Subjective Time Seen by a Provider: 05:27 Subjective/Events-last exam Pt is now off Levophed. Sepsis Event Evaluation Height, Weight, BMI Height: '" Weight: lbs. oz. kg; 23.00 BMI Method: Focused Exam Lactate Level 12/28/20 15:50: Lactic Acid Level 2.36*H 12/28/20 18:26: Lactic Acid Level 2.16*H 12/28/20 23:00: Lactic Acid Level 1.43 Exam Exam Vital Signs Date Time Temp Pulse Resp B/P (MAP) Pulse Ox O2 Delivery O2 Flow Rate FiO2 12/30/20 05:00 60 10 112/60 (76) 88 Nasal Cannula 2.00 12/30/20 04:00 60 14 104/56 (84) 96 Nasal Cannula 2.00 12/30/20 03:09 97 Nasal Cannula 2.00 12/30/20 03:00 58 16 102/53 (68) 96 Nasal Cannula 2.00 12/30/20 02:00 89 30 98/56 (77) 93 Nasal Cannula 2.00 12/30/20 01:00 113 12 106/62 (77) Nasal Cannula 2.00 12/30/20 00:00 67 13 104/50 (68) Nasal Cannula 2.00 12/29/20 23:38 37.0 12/29/20 23:00 69 12 109/66 (80) Nasal Cannula 2.00 12/29/20 22:00 81 29 125/97 (106) 95 Nasal Cannula 2.00 12/29/20 21:00 68 17 105/58 (74) 97 Nasal Cannula 2.00 12/29/20 20:00 Nasal Cannula 2.00 12/29/20 20:00 70 14 114/57 (76) 95 Nasal Cannula 2.00 12/29/20 19:00 36.8 80 80 107/52 (70) 94 Nasal Cannula 2.00 12/29/20 18:00 82 22 95/51 (66) 91 Nasal Cannula 2.00 12/29/20 17:00 99 21 91/57 (68) 90 Nasal Cannula 2.00 12/29/20 16:00 105 14 95/55 (68) 90 Nasal Cannula 2.00 12/29/20 15:00 96 16 106/49 (68) 89 Nasal Cannula 2.00 12/29/20 14:00 69 22 94/49 (64) 91 Nasal Cannula 2.00 12/29/20 13:00 74 17 100/52 (68) 97 Nasal Cannula 2.00 12/29/20 13:00 71 12/29/20 12:55 36.4 12/29/20 12:00 76 28 114/56 (75) 95 Nasal Cannula 2.00 12/29/20 11:00 71 25 106/50 (68) 97 Nasal Cannula 2.00 12/29/20 10:00 70 15 96/46 (63) 94 Nasal Cannula 2.00 12/29/20 09:00 72 19 115/54 (74) 95 Nasal Cannula 2.00 12/29/20 08:49 37.1 12/29/20 08:20 Nasal Cannula 2.00 12/29/20 08:00 72 15 118/54 (75) 95 Nasal Cannula 2.00 12/29/20 08:00 Nasal Cannula 2.00 12/29/20 07:00 70 12/29/20 07:00 73 13 122/54 (76) 95 Nasal Cannula 2.00 12/29/20 06:00 66 15 121/63 (82) 95 Nasal Cannula 2.00 I & O 12/30/20 07:00 Intake Total 3655 ml Output Total 1090 ml Balance 2565 ml Height & Weight Height: '" Weight: lbs. oz. kg; 23.00 BMI Method: General Appearance: No Apparent Distress, Chronically ill, Thin, Other (ill appearing) HEENT: PERRL/EOMI, Moist Mucous Membranes; No Scleral Icterus (L), No Scleral Icterus (R) Neck: Normal Inspection, Supple, Other (central line in place) Respiratory: Lungs Clear, No Accessory Muscle Use, Other (nasal cannula) Cardiovascular: Regular Rate, Rhythm, No Murmur, Normal Peripheral Pulses Capillary Refill: Less Than 3 Seconds Gastrointestinal: non tender, soft, no organomegaly Extremity: Normal Capillary Refill, Non Tender, No Pedal Edema Neurologic/Psychiatric: Alert; No Aphasia, No Facial Droop; Other (orientation improved and oriented to major details and most minor as well regarding stay) Skin: Normal Color, Warm/Dry Lymphatic: No Adenopathy Results Lab Laboratory Tests 12/28/20 07:42 12/28/20 12:22 12/28/20 23:00 12/29/20 03:55 12/30/20 01:55 Assessment/Plan Assessment/Plan Severe sepsis with UTI - Rocephin -Suarez cultures pending -IVF 150 LR Hypotension - -Currently off Levophed -s/p 2 units of PRBC Anemia with hematuria s/p 2 units of PRBC -CT of abdomen and pelvis -- shows bladder diverticulum with mass -Surgery is following -monitor Metabolic acidosis -Give 2 amps of bicarb -Give a liter bolus of LR Acute renal failure with metabolic lactic acidosis -Monitor -IVF Severe dehydration -IVF Metabolic encephalopathy TABATHA KELLEY DO Dec 30, 2020 05:31
--- NOTE | 2020-12-30 07:36 | Diagnostic Imaging Report ---
INDICATION: Myocardial infarct and severe anemia. TIME OF EXAM: 2:12 AM Correlation is made with prior chest one day earlier. FINDINGS: Heart size is normal. There are bibasilar infiltrates or atelectasis. Mid and upper lung brooks are clear. There is no pneumothorax. A right IJ line with tip overlying SVC. IMPRESSION: Continued bibasilar infiltrates or atelectasis. There also may be trace bilateral pleural effusions. Dictated by: Dictated on workstation # [id number]
[2020-12-30] MEDS: PANTOPRAZOLE 40 MG (PROTONIX) VIAL IV SCH (09:01)
[2020-12-30] MEDS: MUPIROCIN 2% OINT 22 GM (BACTROBAN) TUBE NSEACH SCH ×2 (09:02→20:07)
[2020-12-30] MEDS: ASPIRIN E.C. 81 MG (ECOTRIN) TAB PO SCH (09:02)
--- NOTE | 2020-12-30 10:09 | Cardiology Progress Note ---
Subjective Date Seen by Provider: Dec 30, 2020 Time Seen by Provider: 10:08 Subjective/Events-last exam Patient is laying down in bed, feeling better. Asking to go home. Review of Systems General: No Chills, No Night Sweats, No Fatigue, No Malaise, No Appetite, No Other HEENT: No Head Aches, No Visual Changes, No Eye Pain, No Ear Pain, No Dysphasia, No Sinus Congestion, No Post Nasal Drip, No Sore Throat, No Other Pulmonary: No Dyspnea, No Cough, No Pleuritic Chest Pain, No Other Cardiovascular: No: Chest Pain, Palpitations, Orthopnea, Paroxysmal Noc. Dyspnea, Edema, Lt Headedness, Other Focused Exam Lactate Level 12/28/20 15:50: Lactic Acid Level 2.36*H 12/28/20 18:26: Lactic Acid Level 2.16*H 12/28/20 23:00: Lactic Acid Level 1.43 Objective-Cardiology Exam Last Set of Vital Signs Vital Signs 12/29/20 12/30/20 12/30/20 12/30/20 23:38 06:00 06:47 09:00 Temp 37.0 Pulse 60 Resp 13 B/P (MAP) 110/53 (72) Pulse Ox 93 O2 Delivery Nasal Cannula O2 Flow Rate 2.00 Capillary Refill : Less Than 3 Seconds I&O Intake and Output 12/30/20 00:00 Intake Total 3330 ml Output Total 1175 ml Balance 2155 ml Intake Oral 2330 ml IV Total 1000 ml Output Urine Total 1175 ml General: Alert, Oriented X3, Cooperative HEENT: Atraumatic, PERRLA Neck: Supple, No JVD, No Thyromegaly Lungs: Clear to Auscultation, Normal Air Movement Heart: Regular Rate, Normal S1, Normal S2, Other (systolic murmur at the left sternal border) Abdomen: Normal Bowel Sounds, Soft, No Tenderness, No Hepatosplenomegaly, No Masses Extremities: No Clubbing, No Cyanosis, No Edema, Normal Pulses, No Tenderness/Swelling Skin: No Rashes, No Breakdown, No Significant Lesion Neuro: Normal Gait, Normal Speech, Strength at 5/5 X4 Ext, Normal Tone, Sensation Intact Psych/Mental Status: Mental Status NL, Mood NL Results Lab Laboratory Tests 12/30/20 01:55 A/P-Cardiology Admission Diagnosis Non-ST elevation myocardial infarction Sepsis Hypotension Anemia Assessment/Plan Non-ST elevation myocardial infarction, patient has multiple risk factors, we discussed the possibility of cardiac catheterization, 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 Patient requested conservative management. Continue on current treatment Coronary artery disease, had myocardial infarction in January 2020, treated conservatively due to his comorbid conditions, has been followed by Dr. 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 Managed by primary care team Sepsis, her energy tract infection, improving Hematuria, history of TURP, UTI, for possible cystoscopy Anemia, continue to monitor H&H Diabetes mellitus, followed and managed by primary care physician Hypertension, status post hypotensive shock, improved, still on pressors at this point Hyperlipidemia, monitor lipids VALERIA COLEMAN MD Dec 30, 2020 10:09
[2020-12-30] MEDS ORDERED: AMOX1TAB11 PO (11:17)
[2020-12-30] MEDS ORDERED: METO2.5T PO (11:17)
[2020-12-30] MEDS ORDERED: MAGN400T39 PO (11:17)
[2020-12-30] MEDS ORDERED: METO50TA7 PO (11:17)
[2020-12-30] MEDS ORDERED: TMSL.4C PO (11:17)
[2020-12-30] MEDS ORDERED: RT-ALBUINH INH (11:18)
--- NOTE | 2020-12-30 11:20 | NUR ---
SPOKE WITH THE PT AND GOT A MED LIST FROM THE DC TO COMPLETE THE MED REC THE FOLLOWING ARE FILL DATES FROM THE DC: 06-19-2020 ALBUTEROL HFA #1 06-19-2020 SIMETHICONE 80MG #400 07-16-2020 MAG-OX 250MG #DS 10-16-2020 BUMETANIDE 1MG #DS 10-16-2020 METOLAZONE 2.5MG #DS 10-16-2020 TAMSULOSIN 0.4MG #DS 10-16-2020 METOPROLOL SUCC 50MG #DS 12-20-2020 AMOX/CLAV 500/125 #DS THE FOLLOWING [facility] LIST[facility] BUT PT SAYS HE IS NO LONGER TAKING: ELIQUIS 2.5MG ASPIRIN 81MG LISINOPRIL 5MG OMEPRAZOLE 20MG PANTOPRAZOLE 20MG MIRALAX POTASSIUM CHL 10MEQ THE PT THINKS HE IS ONLY TAKING 1 WATER PILL BUT COULD NOT REMEMBER THE NAME- I SHOWED HIM METOLAZONE AND BUMETANIDE ARE BOTH ON HIS MED LIST. HE WENT BACK AND FORTH BETWEEN WHICH ONE HE TAKES AND THEN SAID THAT MAYBE HE DOES TAKE BOTH- FOR THAT REASON I INCLUDED BOTH ON THE MED REC
[2020-12-30] MEDS ORDERED: MAGN250T35 PO (11:28)
--- NOTE | 2020-12-30 11:35 | Progress Note-Pre Operative ---
Pre-Operative Progress Note H&P Reviewed The H&P was reviewed, patient examined and no changes noted. Date Seen by Provider: Dec 30, 2020 Time Seen by Provider: 11:34 Date H&P Reviewed: Dec 30, 2020 Time H&P Reviewed: 11:34 Pre-Operative Diagnosis: GROSS HEMETURIA KYA NOGUEIRA MD Dec 30, 2020 11:35
--- NOTE | 2020-12-30 11:36 | Progress Note-Post Operative ---
Post-Operative Progess Note Surgeon (s)/Ship Boss (s) Surgeon KYA NOGUEIRA MD Ship Boss: NONE Pre-Operative Diagnosis GROSS HEMETURIA Post-Operative Diagnosis SAME Procedure & Operative Findings Date of Procedure 12/30/20 Procedure Performed/Findings CYSTOSCOPY Anesthesia Type LOCAL Estimated Blood Loss Estimated blood loss (mL): NONE Specimens/Packing Specimens Removed NONE Packing: NONE KYA NOGUEIRA MD Dec 30, 2020 11:36
[2020-12-30] MEDS: LIDOCAINE UROJET 2% GEL 10 ML PKG ONE ×2 (11:43→12:33)
--- NOTE | 2020-12-30 12:04 | Physical Therapy Evaluation ---
PT Evaluation-General Medical Diagnosis Admission Date Dec 28, 2020 at 04:20 Medical Diagnosis: NSTEMI/severe anemia/renal failure Onset Date: Dec 28, 2020 Therapy Diagnosis Therapy Diagnosis: generalized weakness/debility Precautions Precautions/Isolations: Fall Prevention, Standard Precautions Referral Physician: Melody Reason for Referral: Evaluation/Treatment Medical History Pertinent Medical History: CAD, DM, HTN, Renal Insufficiency, Smoking Additional Medical History Home O2 Current History ER secondary to agitation/confusion/abdominal pain Reviewed History: Yes Social History Home: Single Level Current Living Status: Alone Prior Prior Level of Function SCALE: Activities may be completed with or without assistive devices. 7-Bgjaqtyzwd-ihtmtri completes the activity by him/herself with no assistance from a helper. 5-Set-up or Clean-up Assistance-helper sets up or cleans up; patient completes activity. [place] assists only prior to or following the activity. 4-Supervision or Touching Assistance-helper provides verbal cues and/or touching/steadying and/or contact guard assistance as patient completes activity. Assistance may be provided throughout the activity or intermittently. 3-Partial/Moderate Assistance-helper does LESS THAN HALF the effort. [place] lifts, holds or supports trunk or limbs, but provides less than half the effort. 2-Substantial/Maximal Assistance-helper does MORE THAN HALF the effort. [place] lifts or holds trunk or limbs and provides more than half the effort. 4-Wxugfdmtt-cmszie does ALL the effort. Patient does none of the effort to complete the activity. Or, the assistance of 2 or more helpers is required for the patient to complete the activity. If activity was not attempted, code reason: 7-Patient Refused. 9-Not Applicable-not attempted and the patient did not perform the activity before the current illness, exacerbation or injury. 10-Not Attempted due to Environmental Limitations-(lack of equipment, weather restraints, etc.). 88-Not Attempted due to Medical Conditions or Safety Concerns. Bed Mobility: 5 Transfers (B,C,W/C): 5 Gait: 5 Indoor Mobility (Ambulation): Independent Prior Devices Use: Walker PT Evaluation-Current Subjective Patient agrees to PT. No c/o. Pain Numeric Pain Scale: 5-Moderate Pain Location: Lower Location Body Site: Abdomen Pain Description: Ache, Pressure Objective Patient Orientation: Person, Time, Situation Attachments: Oxygen, Palencia Catheter, IV ROM/Strength ROM Lower Extremities bilateral LE WFL Strength Lower Extremities 3+/5 grossly bilateral LE Integumentary/Posture Integumentary refer to nursing notes Bowel Incontinence: No Bladder Incontinence: Palencia Cath Posture slightly kyphotic Neuromuscular (Tone, Coordination, Reflexes) grossly intact Sensory Vision: Functional Hearing: Impaired Transfers Sit to Lying (QC): 5 Lying to Sitting/Side of Bed(Q: 5 Sit to Stand (QC): 3 Gait Does the Patient Walk?: Yes Mode of Locomotion: Walk Anticipated Mode of Locomotion: Walk Walk 10 feet (QC): 3 Walk 50 ft with 2 Turns(QC): 88 Walk 150 ft (QC): 88 Gait Assistive Device: FWW Comments/Gait Description functional gait sequence Balance Sitting Static: Normal Sitting Dynamic: Normal Standing Static: Fair Standing Dynamic: Fair Assessment/Needs 85 y.o. male, will benefit from skilled PT to address functional strength and mobility to improve current LOF to safely return to home at maximum LOF. Rehab Potential: Fair PT Steward/Stewardess Dining Room Goals Steward/Stewardess Dining Room Goals PT Steward/Stewardess Dining Room Goals Time Frame: Jan 11, 2021 Roll Left & Right (QC): 6 Sit to Lying (QC): 6 Lying-Sitting on Side/Bed(QC): 6 Sit to Stand (QC): 6 Chair/Yax-xd-Itylp Xfer(QC): 6 Toilet Transfer (QC): 6 Does the Patient Walk: Yes Walk 10 feet (QC): 5 Walk 50ft with 2 Turns (QC): 5 Walk 150 ft (QC): 5 1 Step (curb) (QC): 5 PT Plan Problem List Problem List: Activity Tolerance, Functional Strength, Safety, Balance, Gait, Transfer Treatment/Plan Treatment Plan: Continue Plan of Care Treatment Plan: Bed Mobility, Education, Functional Activity Gary, Functional Strength, Gait, Safety, Therapeutic Exercise, Transfers Treatment Duration: Jan 11, 2021 Frequency: 6 times per week Estimated Hrs Per Day: .25 hour per day Patient and/or Family Agrees t: Yes Time/GCodes Time In: 1110 Time Out: 1126 Total Billed Treatment Time: 16 Total Billed Treatment 1 visit EVModC 16 min JING PEDERSON PT Dec 30, 2020 12:04
--- NOTE | 2020-12-30 14:33 | Progress Note - Hospitalist ---
Subjective HPI/CC On Admission Date Seen by Provider: Dec 30, 2020 Time Seen by Provider: 09:20 Patient is an 85yo male with a PMH of CAD, HTN, HLD and NIDDM presenting to [facility] ED via POV with son due to agitation, confusion, and hematuria. Due to his clinical condition he is unable to give a reliable history. He wears moser pplemental oxygen at home and arrived with his O2 tank, but was not wearing it. He complained of nausea on arrival, but was unable to answer whether he was having any pain. He was found to be hypotensive with severe anemia. He received 1 unit of PRBC, and was given Ativan and Morphine. He has a history of leaving against medical advice on multiple occasions. Subjective/Events-last exam he has no complaints or concerns. He continues to have hematuria. He denies any fevers or chills. He denies any shortness of breath or cough. He denies any chest pain. He reports that he is constipated and bloated. Focused Exam Lactate Level 12/28/20 15:50: Lactic Acid Level 2.36*H 12/28/20 18:26: Lactic Acid Level 2.16*H 12/28/20 23:00: Lactic Acid Level 1.43 Objective Exam Vital Signs Vital Signs Date Time Temp Pulse Resp B/P (MAP) Pulse Ox O2 Delivery O2 Flow Rate FiO2 12/30/20 12:00 68 16 116/68 (84) 95 Nasal Cannula 2.00 12/29/20 23:38 37.0 Capillary Refill : Less Than 3 Seconds General Appearance: No Apparent Distress, WD/WN Respiratory: Lungs Clear, Normal Breath Sounds, No Respiratory Distress Cardiovascular: Regular Rate, Rhythm, No Edema, No Murmur Gastrointestinal: Normal Bowel Sounds, Non Tender, Soft Extremity: Normal Inspection, Non Tender, No Pedal Edema Neurologic/Psychiatric: Alert, Oriented x3, No Motor/Sensory Deficits, Normal Mood/Affect Skin: Normal Color, Warm/Dry Results/Procedures Lab Laboratory Tests 12/30/20 01:55 Patient resulted labs reviewed. 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 Jose Miguel POST Hold home medications DVT prophylaxis: held due to hematuria Septic shock, resolved Diagnosis/Problems Diagnosis/Problems (1) Hematuria Status: Acute Qualifiers: Hematuria type: gross Qualified Codes: R31.0 - Gross hematuria (2) Acute blood loss anemia Status: Acute (3) Acute kidney injury superimposed on chronic kidney disease Status: Acute (4) UTI (urinary tract infection) Status: Acute Qualifiers: Urinary tract infection type: acute cystitis Hematuria presence: with hematuria Qualified Codes: N30.01 - Acute cystitis with hematuria (5) NSTEMI (non-ST elevated myocardial infarction) Status: Acute (6) Septic shock Status: Resolved Resolution Date/Time: 12/30/20 @ 14:34 QUINTEN HORAN MD Dec 30, 2020 14:33
[2020-12-30] MEDS ORDERED: DOCUSATE SODIUM 100 MG (COLACE) CAP PO ONE (14:44)
[2020-12-30] MEDS ORDERED: SENNA W/DOCUSATE (SENOKOT S) TABLET ONE (14:45)
[2020-12-30] MEDS: SENNA W/DOCUSATE (SENOKOT S) TABLET PO SCH ×2 (14:50→20:06)
[2020-12-30] MEDS: DOCUSATE SODIUM 100 MG (COLACE) CAP PO SCH ×2 (14:50→20:07)
--- NOTE | 2020-12-30 17:26 | NUR ---
Updated pt's son who called to check on him at this time.
--- NOTE | 2020-12-30 19:11 | OPERATIVE REPORT ---
DATE OF SERVICE: 12/30/2020 PREOPERATIVE DIAGNOSIS: Gross hematuria, possible bladder tumor. POSTOPERATIVE DIAGNOSES: 1. Gross hematuria, possible bladder tumor. 2. BPH. OPERATION PERFORMED: Cystoscopy. SURGEON: Twin Nogueira MD ANESTHESIA: Local. COMPLICATIONS: None. DESCRIPTION OF PROCEDURE: With the patient supine in his bed after removing the Palencia catheter, the urethra was infiltrated with 2% lidocaine jelly. Penile clamp was applied. This was then removed and a flexible cystoscope introduced under vision. The patient has not tolerated the procedure very well despite the anesthesia and the local procedure. The prostate revealed enlargement of the lateral lobe meeting in the midline causing complete bladder neck obstruction. It was vascular, hyperemic and bleeding easily on touch. I was unable to evaluate the bladder at all because of the straining and pushing of the patient and discomfort, so I discontinued further attempt to confirm cystoscopy in an antegrade fashion, I removed the cystoscope. The patient tolerated the procedure and anesthesia well and remained in his bed in stable condition. PLAN: We will let him go to his medical issues. We will leave the catheter out since he has been able to void on his own according to him. He was telling me again that Dr. Pendleton did some kind of prostate surgery on him, which had some 3 postoperative ER visits after that. After he goes home, he is going to go to the [facility] and see if they want to refer him to us with authorization to proceed with whatever needs to be done. At that point, the patient will need a cystoscopy under general anesthesia to see exactly what is going on with the bladder and plan the actual procedure regarding prostate and bladder. We will also do an ultrasound of the prostate to evaluate the size of the prostate and examine him at that time. Plan was fully explained to the patient. We will also when he comes to the office to get the record from Dr. Pendleton. Job ID: [id number] DocumentID: [id number] Dictated Date: 12/30/2020 12:04:41 Shellfish Sorter Date: 12/30/2020 19:10:24 Dictated By: TWIN NOGUEIRA MD
[2020-12-30] MEDS ORDERED: SENNA W/DOCUSATE (SENOKOT S) TABLET PO SCH (21:00)
[2020-12-31] MEDS: LACTATED RINGERS 1,000 ML IV SCH (02:43)
[2020-12-31] MEDS ORDERED: WATER (STERILE) FOR INJECTION 10 ML ONE (05:01)
[2020-12-31] MEDS ORDERED: cefTRIAXone 1,000 MG IV (ROCEPHIN) VIAL ONE (05:01)
[2020-12-31] MEDS: cefTRIAXone 1,000 MG/SWFI 10 ML IV PUSH IV SCH ×2 (05:09)
[2020-12-31 05:43] LABS: BASOPHILS % (AUTO) 0 % (0-10); EOSINOPHILS # (AUTO) 0.6 10^3/uL (0.0-0.3); EOSINOPHILS % (AUTO) 5 % (0-10); HEMATOCRIT 25 % (40-54); HEMOGLOBIN 7.5 g/dL (13.3-17.7); LYMPHOCYTES # (AUTO) 1.8 10^3/uL (1.0-4.0); LYMPHOCYTES % (AUTO) 16 % (12-44); MEAN CORPUSCULAR HEMOGLOBIN 24 pg (25-34); MEAN CORPUSCULAR HGB CONC 31 g/dL (32-36); MEAN CORPUSCULAR VOLUME 80 fL (80-99); MEAN PLATELET VOLUME 11.2 fL (9.0-12.2); MONOCYTES % (AUTO) 9 % (0-12); NEUTROPHILS % (AUTO) 70 % (42-75); PLATELET COUNT 192 10^3/uL (130-400); WHITE BLOOD COUNT 11.5 10^3/uL (4.3-11.0)
[2020-12-31 06:06] LABS: POTASSIUM 4.6 MMOL/L (3.6-5.0)
[2020-12-31 06:07] LABS: CALCIUM 7.6 MG/DL (8.5-10.1)
[2020-12-31 06:11] LABS: CREATININE SERUM 1.85 MG/DL (0.60-1.30); PHOSPHORUS 3.5 MG/DL (2.3-4.7)
--- NOTE | 2020-12-31 08:00 | Pulmonary Progress Note ---
Subjective Time Seen by a Provider: 07:57 Subjective/Events-last exam No complications noted. Sepsis Event Evaluation Height, Weight, BMI Height: '" Weight: lbs. oz. kg; 23.00 BMI Method: Focused Exam Lactate Level 12/28/20 15:50: Lactic Acid Level 2.36*H 12/28/20 18:26: Lactic Acid Level 2.16*H 12/28/20 23:00: Lactic Acid Level 1.43 Exam Exam Vital Signs Date Time Temp Pulse Resp B/P (MAP) Pulse Ox O2 Delivery O2 Flow Rate FiO2 12/31/20 04:14 36.9 78 20 117/56 (76) 100 Nasal Cannula 2.00 12/31/20 00:35 99 Nasal Cannula 2.00 12/30/20 23:19 36.0 78 20 123/60 (81) 99 Nasal Cannula 2.00 12/30/20 20:10 Nasal Cannula 2.00 12/30/20 19:14 36.6 76 18 123/56 (78) 98 Nasal Cannula 1.50 12/30/20 16:15 36.0 73 20 131/60 (83) 100 Nasal Cannula 2.00 12/30/20 12:00 68 16 116/68 (84) 95 Nasal Cannula 2.00 12/30/20 09:00 Nasal Cannula 2.00 12/30/20 08:00 64 12 118/56 (76) 99 Nasal Cannula 2.00 I & O 12/31/20 07:00 Intake Total 2465 ml Output Total 925 ml Balance 1540 ml Height & Weight Height: '" Weight: lbs. oz. kg; 23.00 BMI Method: General Appearance: No Apparent Distress, WD/WN HEENT: PERRL/EOMI, Moist Mucous Membranes; No Scleral Icterus (L), No Scleral Icterus (R) Neck: Normal Inspection, Supple, Other (central line in place) Respiratory: Lungs Clear, Normal Breath Sounds, No Respiratory Distress Cardiovascular: Regular Rate, Rhythm, No Edema, No Murmur Capillary Refill: Less Than 3 Seconds Gastrointestinal: non tender, soft, no organomegaly Extremity: Normal Inspection, Non Tender, No Pedal Edema Neurologic/Psychiatric: Alert, Oriented x3, No Motor/Sensory Deficits, Normal Mood/Affect Skin: Normal Color, Warm/Dry Lymphatic: No Adenopathy Results Lab Laboratory Tests 12/30/20 01:55 12/31/20 05:35 Assessment/Plan Assessment/Plan Severe sepsis with UTI - Rocephin -Suarez cultures pending -IVF 150 LR Anemia with hematuria s/p 2 units of PRBC -CT of abdomen and pelvis -- shows bladder diverticulum with mass -Surgery is following -monitor Acute renal failure -Monitor Metabolic encephalopathy I'm going to sign off please call with any questions or concerns. TABATHA KELLEY DO Dec 31, 2020 08:00
[2020-12-31] MEDS ORDERED: BISACODYL 10 MG SUPP (DULCOLAX) PR NR (08:30)
[2020-12-31] MEDS: DOCUSATE SODIUM 100 MG (COLACE) CAP PO SCH (09:29)
[2020-12-31] MEDS: SENNA W/DOCUSATE (SENOKOT S) TABLET PO SCH (09:29)
[2020-12-31] MEDS: ASPIRIN E.C. 81 MG (ECOTRIN) TAB PO SCH (09:29)
[2020-12-31] MEDS: PANTOPRAZOLE 40 MG (PROTONIX) VIAL IV SCH (09:29)
[2020-12-31] MEDS: MUPIROCIN 2% OINT 22 GM (BACTROBAN) TUBE NSEACH SCH (09:30)
--- NOTE | 2020-12-31 09:43 | Physical Therapy Daily Note ---
PT Daily Note-Current Subjective Patient agrees to PT. C/o scrotal pressure due to edema. Mental Status Patient Orientation: Normal For Age Attachments: Palencia Catheter, IV Transfers SCALE: Activities may be completed with or without assistive devices. 9-Vqlayfbkte-nqlshwp completes the activity by him/herself with no assistance from a helper. 5-Set-up or Clean-up Assistance-helper sets up or cleans up; patient completes activity. [place] assists only prior to or following the activity. 4-Supervision or Touching Assistance-helper provides verbal cues and/or touching/steadying and/or contact guard assistance as patient completes acti vity. Assistance may be provided throughout the activity or intermittently. 3-Partial/Moderate Assistance-helper does LESS THAN HALF the effort. [place] lifts, holds or supports trunk or limbs, but provides less than half the effort. 2-Substantial/Maximal Assistance-helper does MORE THAN HALF the effort. [place] lifts or holds trunk or limbs and provides more than half the effort. 8-Dpnbplzrv-fpjwxq does ALL the effort. Patient does none of the effort to complete the activity. Or, the assistance of 2 or more helpers is required for the patient to complete the activity. If activity was not attempted, code reason: 7-Patient Refused. 9-Not Applicable-not attempted and the patient did not perform the activity before the current illness, exacerbation or injury. 10-Not Attempted due to Environmental Limitations-(lack of equipment, weather restraints, etc.). 88-Not Attempted due to Medical Conditions or Safety Concerns. Sit to Lying (QC): 6 Lying to Sitting/Side of Bed(Q: 6 Sit to Stand (QC): 4 Gait Training Does the Patient Walk?: Yes Distance: 50' Walk 10 feet (QC): 5 Walk 50 ft with 2 Turns(QC): 5 Walk 150 ft (QC): 9 Gait Assistive Device: FWW per patient,ambulates short distances only with 4WW and utilizes the seat in 4WW when fatigued. Functional gait sequence with short distances. Assessment Patient returned to bed with 4 rails up and alarm activated for safety. Patient ceased treatment. Would benefit from continued strengthening and gait training due to safety concerns and fall risk. PT Intermediate Goals Mail Manager Goals PT Intermediate Goals Time Frame: Jan 11, 2021 Roll Left & Right (QC): 6 Sit to Lying (QC): 6 Lying-Sitting on Side/Bed(QC): 6 Sit to Stand (QC): 6 Chair/Omi-rd-Wgwtf Xfer(QC): 6 Toilet Transfer (QC): 6 Does the Patient Walk: Yes Walk 10 feet (QC): 5 Walk 50ft with 2 Turns (QC): 5 Walk 150 ft (QC): 5 1 Step (curb) (QC): 5 PT Plan Treatment/Plan Treatment Plan: Continue Plan of Care Treatment Plan: Bed Mobility, Education, Functional Activity Gary, Functional Strength, Gait, Safety, Therapeutic Exercise, Transfers Treatment Duration: Jan 11, 2021 Frequency: 6 times per week Estimated Hrs Per Day: .25 hour per day Patient and/or Family Agrees t: Yes Time/GCodes Time In: 823 Time Out: 833 Total Billed Treatment Time: 10 Total Billed Treatment 1 visit FA 10 min JING PEDERSON PT Dec 31, 2020 09:43
[2020-12-31] MEDS ORDERED: CEFD300C3 PO (10:24)
--- NOTE | 2020-12-31 10:48 | Cardiology Progress Note ---
Subjective Date Seen by Provider: Dec 31, 2020 Time Seen by Provider: 10:46 Subjective/Events-last exam patient was seen at bedside laying down comfortably, denied any active pain. Still having hematuria Review of Systems General: No Chills, No Night Sweats, No Fatigue, No Malaise, No Appetite, No Other HEENT: No Head Aches, No Visual Changes, No Eye Pain, No Ear Pain, No Dysphasia, No Sinus Congestion, No Post Nasal Drip, No Sore Throat, No Other Pulmonary: No Dyspnea, No Cough, No Pleuritic Chest Pain, No Other Cardiovascular: No: Chest Pain, Palpitations, Orthopnea, Paroxysmal Noc. Dyspnea, Edema, Lt Headedness, Other Focused Exam Lactate Level 12/28/20 15:50: Lactic Acid Level 2.36*H 12/28/20 18:26: Lactic Acid Level 2.16*H 12/28/20 23:00: Lactic Acid Level 1.43 Objective-Cardiology Exam Last Set of Vital Signs Vital Signs 12/31/20 08:00 Temp 35.8 Pulse 72 Resp 18 B/P (MAP) 130/63 (85) Pulse Ox 99 O2 Delivery Nasal Cannula O2 Flow Rate 2.00 Capillary Refill : Less Than 3 Seconds I&O Intake and Output 12/31/20 00:00 Intake Total 2140 ml Output Total 1540 ml Balance 600 ml Intake Oral 1140 ml IV Total 1000 ml Output Urine Total 1340 ml Post Void Residual 200 ml # Voids 3 General: Alert, Oriented X3, Cooperative HEENT: Atraumatic, PERRLA Neck: Supple, No JVD, No Thyromegaly Lungs: Clear to Auscultation, Normal Air Movement Heart: Regular Rate, Normal S1, Normal S2, Other (systolic murmur at the left sternal border) Abdomen: Normal Bowel Sounds, Soft, No Tenderness, No Hepatosplenomegaly, No Masses Extremities: No Clubbing, No Cyanosis, No Edema, Normal Pulses, No Tenderness/Swelling Skin: No Rashes, No Breakdown, No Significant Lesion Neuro: Normal Gait, Normal Speech, Strength at 5/5 X4 Ext, Normal Tone, Sensation Intact Psych/Mental Status: Mental Status NL, Mood NL Results Lab Laboratory Tests 12/31/20 05:35 A/P-Cardiology Admission Diagnosis Non-ST elevation myocardial infarction Sepsis Hypotension Anemia Assessment/Plan Non-ST elevation myocardial infarction, patient has multiple risk factors, we discussed the possibility of cardiac catheterization, 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 Patient requested conservative management. I discussed the management plan with the patient again and highly recommended a cardiac catheterization with evaluation of his coronary anatomy, patient is against the procedure and does not want to have the procedure done. He is aware of the risks and benefits, understand that there is a risk of a massive heart attack and he probably has coronary artery disease but he is still insisting that it is mainly due to constipation. Coronary artery disease, had myocardial infarction in January 2020, treated conservatively due to his comorbid conditions, has been followed by Dr. 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 Managed by primary care team Sepsis, her energy tract infection, improving Hematuria, history of TURP, UTI, questionable tumor, managed by urology Anemia, continue to monitor H&H Diabetes mellitus, followed and managed by primary care physician Hypertension, status post hypotensive shock, improved, continue to monitor Hyperlipidemia, monitor lipids VALERIA COLEMAN MD Dec 31, 2020 10:48
--- NOTE | 2020-12-31 11:17 | Discharge Summary ---
Discharge Summary Hospital Course Was the Problem List Reviewed?: Yes Problems/Dx: (1) Hematuria Status: Acute Qualifiers: Qualified Codes: R31.0 - Gross hematuria (2) Acute blood loss anemia Status: Acute (3) Acute kidney injury superimposed on chronic kidney disease Status: Acute (4) UTI (urinary tract infection) Status: Acute Qualifiers: Qualified Codes: N30.01 - Acute cystitis with hematuria (5) NSTEMI (non-ST elevated myocardial infarction) Status: Acute (6) Hemorrhagic shock Status: Acute Hospital Course Date of Admission: Dec 28, 2020 at 04:20 Admission Diagnosis : Hemorrhagic shock due to hematuria Family Physician/Provider: Mamie,Local Physician Date of Discharge: 12/31/20 Discharge Diagnosis: Hemorrhagic shock due to hematuria Hospital Course: Brayden Wilcox is an 85 year old male who was admitted with hemorrhagic shock due to hematuria. He had reportedly been having gross hematuria for at least 2 years. His hemoglobin was 6.2 on arrival. He was transfused 2 units of PRBC. He required pressors for blood pressure support initially. His hemoglobin stabilized. There was concern for septic shock due to urinary tract infection but this was ruled out. His urine culture and blood cultures were both negative. Dr. Butler, urology, was consulted and assisted with his care. He performed a cystoscopy, but was unable to visualize the bladder adequately. He recommended that the patient follow up with the [facility], obtain a referral, and then follow-up with Dr. Butler as an outpatient. He has a follow-up appointment scheduled with the [facility] on 01/01. His course is complicated by NSTEMI for which Dr. Saleem was consulted. He recommended cardiac catheterization but the patient refused despite the risks being explained thoroughly. Labs and Pending Lab Test: Laboratory Tests 12/30/20 13:10: Glucometer 110 12/30/20 13:21: Lab Scanned Report Transfusion Reaction Form 12/30/20 15:29: Glucometer 94 12/30/20 20:43: Glucometer 123H 12/31/20 05:35: White Blood Count 11.5H, Red Blood Count 3.08L, Hemoglobin 7.5L, Hematocrit 25L, Mean Corpuscular Volume 80, Mean Corpuscular Hemoglobin 24L, Mean Corpuscular Hemoglobin Concent 31L, Red Cell Distribution Width 18.1H, Platelet Count 192, Mean Platelet Volume 11.2, Immature Granulocyte % (Auto) 0, Neutrophils (%) (Auto) 70, Lymphocytes (%) (Auto) 16, Monocytes (%) (Auto) 9, Eosinophils (%) (Auto) 5, Basophils (%) (Auto) 0, Neutrophils # (Auto) 8.0H, Lymphocytes # (Au to) 1.8, Monocytes # (Auto) 1.0, Eosinophils # (Auto) 0.6H, Basophils # (Auto) 0.0, Immature Granulocyte # (Auto) 0.0, Sodium Level 137, Potassium Level 4.6, Chloride Level 107, Carbon Dioxide Level 21, Anion Gap 9, Blood Urea Nitrogen 43H, Creatinine 1.85H, Estimat Glomerular Filtration Rate 35, BUN/Creatinine Ratio 23, Glucose Level 95, Calcium Level 7.6L, Phosphorus Level 3.5, Magnesium Level 2.0 Microbiology 12/28/20 MRSA Screen - Final, Complete 12/28/20 Blood Culture - Preliminary, Resulted No growth 12/28/20 Urine Culture - Final, Complete NO GROWTH Home Meds Active Cefdinir 300 Mg Capsule 300 Mg PO BID 5 Days Reported Magnesium Oxide 250 Mg Tablet 250 Mg PO DAILY LAST FILLED 07-16-2020 #90/90 DAY SUPPLY Ventolin Hfa (Albuterol Sulfate) 1 Puff Puff 2 Puff INH QID PRN 1 PUFF = 90 MCG Flomax (Tamsulosin HCl) 0.4 Mg Cap 0.4 Mg PO DAILY Metoprolol Succinate 50 Mg Tab.er.24h 50 Mg PO DAILY Metolazone 2.5 Mg Tablet 2.5 Mg PO DAILY Amox Tr-K Clv 500-125 mg Tab (Amoxicillin/Potassium Clav) 1 Each Tablet 1 Each PO BID FILLED 12-20-2020 #28/14 DAY SUPPLY Simethicone 80 Mg Tab.chew 80 Mg PO QID PRN Bumetanide 1 Mg Tablet 1 Mg PO DAILY Assessment/Pt Instructions Take medications as prescribed. Follow up with your PCP at [facility]. Follow up with Dr. Butler. You will need to have a cystoscopy under general anesthesia as an outpatient. Discharge Planning: <30 minutes discharge planning Discharge Instructions Discharge Diet: No Restrictions Activity as Tolerated: Yes Discharge Physical Examination Vital Signs Vital Signs Date Time Temp Pulse Resp B/P (MAP) Pulse Ox O2 Delivery O2 Flow Rate FiO2 12/31/20 08:00 35.8 72 18 130/63 (85) 99 Nasal Cannula 2.00 General Appearance: No Apparent Distress, Chronically ill Respiratory: Lungs Clear, Normal Breath Sounds, No Respiratory Distress Cardiovascular: Regular Rate, Rhythm, No Edema, No Murmur Gastrointestinal: Normal Bowel Sounds, Non Tender, Soft Extremity: Normal Inspection, Non Tender, No Pedal Edema Skin: Normal Color, Warm/Dry Neurologic/Psychiatric: Alert, Oriented x3, No Motor/Sensory Deficits, Normal Mood/Affect Allergies: Uncoded Allergies: pneumonia vaccine (Adverse Reaction, Unknown, 02/06/20) Discharge Summary Date of Admission Dec 28, 2020 at 04:20 Date of Discharge Discharge Date: Dec 31, 2020 Discharge Time: 11:17 Admission Diagnosis Septic Shock Discharge Diagnosis Hemorrhagic shock due to hematuria (1) Hematuria Status: Acute Qualifiers: Qualified Codes: R31.0 - Gross hematuria (2) Acute blood loss anemia Status: Acute (3) Acute kidney injury superimposed on chronic kidney disease Status: Acute (4) UTI (urinary tract infection) Status: Acute Qualifiers: Qualified Codes: N30.01 - Acute cystitis with hematuria (5) NSTEMI (non-ST elevated myocardial infarction) Status: Acute (6) Hemorrhagic shock Status: Acute QUINTEN HORAN MD Dec 31, 2020 11:08
--- NOTE | 2020-12-31 12:42 | NUR ---
"RD ASSESSMENT PMHx: CAD; HTN; DM; BPH; PT INTERACTION: Pt was awake and pleasant during nutrition consult for MST score. Pt states current appetite is poor. Note avg PO intake 75% x2d, per chart review. Pt states following a regular diet at home, and has no issues with chewing/swallowing food. Pt states some recent issues with constipation, and that his last BM was between 8-10 days ago. Note pt currently on bowel regimen of colace BID, and senna BID, per chart review. Pt staes unsure of recent wt changes. Note recent 21# wt gain x11mon, per chart review. Pt states current DM management is good. Note unable to determine recent HbA1c, per chart review. Given wt hx and PO intake, pt is not at risk for malnutrition at this time. Est. kcal needs: 6321-2257 kcal | 20-25 kcal/kg Est. Pro needs: 71-89 g Pro | 0.8-1.0 g Pro/kg PES STATEMENT: Given current PO intake, no nutrition diagnosis at this time (NO-1.1). INTERVENTION: Continue with current diet order of Regular diet. Offered diet education on DM management, but pt declined at this time. May attempt to offer again prior to discharge. Will continue to follow and reassess as pt needs, intake, and status change. Brett MEJIA MS RD LD [phone] cell"
--- NOTE | 2020-12-31 15:04 | NUR ---
CM/SS visited with the patient for discharge planning. Plan: The patient will discharge home self care. No needs. [place] will provide transportation. Home: The patient is living with his son Dawson. Is independents but uses a cane to get around. CM/SS contacted [employer] and set up transportation. Equipment: [facility] He does not know the company. The patient states he only wears oxygen "when he needs it". The patient had a portable tank in the room. The patient verbalized to the physician that he did not want home health services at this time. No further needs.
--- NOTE | 2021-01-01 15:00 | Physician Query Clarification ---
PQ-Further Specificity Admission/Discharge Admission Date: Dec 28, 2020 at 04:20 Discharge Date: Dec 31, 2020 at 12:50 Dr. Horan, The medical record reflects the following clinical scenario: History/Risk Factors: gross hematuria, hemorrhagic shock, BPH, acute renal failure, NSTEMI Clinical Findings: The prostate revealed enlargement of the lateral lobe meeting in the midline causing complete bladder neck obstruction. It was vascular, hyperemic and bleeding easily on touch. 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 Gross hematuria Treatment: 2 Units RBC, cystoscopy Question: Can you further specify the underlying cause of the gross hematuria per the clinical indicators above? Please document a response in the Progress Notes or Discharge Summary. 1. bladder diverticulum 2. BPH w/obstruction 3. etiology of gross hematuria undetermined 4. Other, with explanation of the clinical findings. 5. Clinically undetermined, no explanation for the clinical findings. PHYSICIAN RESPONSE Can you specify per above: Other, explanation/clinical finding Explanation/Clinical Findings Possible bladder diverticulum vs bladder mass, unable to visualize due to difficulty with cystoscopy and planning for outpatient cystoscopy with general anesthesia Please remember a lack of response to the above will prompt a phone page by [facility]/Coding staff. In responding to this query, please exercise your independent professional judgment. The purpose of this communication is to more accurately reflect the complexity of your patients condition. The fact that a question is asked does not imply that any particular answer is desired or expected. Thank you for your timely response to this clarification. Requestors name: [email or web address] THIS PHYSICIAN QUERY FORM IS A PERMANENT PART OF THE MEDICAL RECORD NATALIA MEJIAS Jan 01, 2021 15:00 QUINTEN HORAN MD Jan 05, 2021 12:00
== END 2020-12-31 12:50 | disposition home or self-care (01) | DRG 698 ==
LOC: EDUNIT# 02:54 → ER 02:57 → ICU 04:20 → 4TH 12-30 11:12
PROVIDERS: ADMIT Family Medicine; ATTEND Internal Medicine
PROC: 0TJB8ZZ Inspection of Bladder, Via Natural or Artificial Opening Endoscopic (ICD-10-PCS; principal; 2020-12-30 11:35)
DX: N32.3 Diverticulum of bladder (principal); R57.8 Other shock; I21.4 Non-ST elevation (NSTEMI) myocardial infarction; G93.41 Metabolic encephalopathy; I50.21 Acute systolic (congestive) heart failure; D62 Acute posthemorrhagic anemia; E87.2 Acidosis; I13.0 Hypertensive heart and chronic kidney disease with heart failure and stage 1 through stage 4 chronic kidney disease, or unspecified chronic kidney disease; J96.10 Chronic respiratory failure, unspecified whether with hypoxia or hypercapnia; N17.9 Acute kidney failure, unspecified; N18.4 Chronic kidney disease, stage 4 (severe); N13.8 Other obstructive and reflux uropathy; R31.0 Gross hematuria; N32.89 Other specified disorders of bladder; E11.22 Type 2 diabetes mellitus with diabetic chronic kidney disease; Z79.84 Long term (current) use of oral hypoglycemic drugs; I25.5 Ischemic cardiomyopathy; I08.3 Combined rheumatic disorders of mitral, aortic and tricuspid valves; I27.20 Pulmonary hypertension, unspecified; N40.1 Benign prostatic hyperplasia with lower urinary tract symptoms; I25.10 Atherosclerotic heart disease of native coronary artery without angina pectoris; E78.00 Pure hypercholesterolemia, unspecified; E78.5 Hyperlipidemia, unspecified; J44.9 Chronic obstructive pulmonary disease, unspecified; F17.210 Nicotine dependence, cigarettes, uncomplicated; Z79.82 Long term (current) use of aspirin; Z88.7 Allergy status to serum and vaccine
CPT/HCPCS: 36415; 51702; 70450; 71045; 74176; 80048; 80053; 80306; 80320; 81000; 82150; 82550; 82553; 82728; 82805; 82962; 83605; 83690; 83735; 83874; 83880; 84100; 84484; 85007; 85025; 85027; 85045; 85055; 85610; 85730; 86850; 86900; 86901; 86920; 87040; 87081; 87088; 93005; 93041; 93306; 96361; 96374; 96375